=== PATIENT | male | born 2005 | race Caucasian/White ===

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

== ENCOUNTER 2025-04-20 15:56 | Emergency (ER) | payer MEDICAID, SELFPAY ==
[2025-04-20 15:56] VITALS: BP 142/78; PULSE 63; RESP 15; TEMP 36.6; O2SAT 100; BMI 34.0
[2025-04-20 17:56] VITALS: BP 138/75; PULSE 85; RESP 18; O2SAT 99
[2025-04-20 19:34] LABS: Absolute Lymphocyte Count 1.05 X10^3/uL (0.83-4.51); Absolute Neutrophil Count 7.9 X10^3/uL (2.0-7.7); Basophil# 0.06 X10^3/uL; Basophil% 0.6 % (0-1); Eosinophil# 0.02 X10^3/uL; Eosinophils% 0.2 % (0-5); Hematocrit 49.9 % (40-54); Hemoglobin 17.3 g/dL (13.0-16.5); Lymphocyte # 1.05 X10^3/ul (0.83-4.51); Lymphocyte % 10.8 % (19-41); Mean Corp Hgb Conc 34.7 g/dL (32-36); Mean Corpuscular Hgb 29.3 pg (27.0-32.0); Mean Corpuscular Volume 84.6 fL (80-94); Mean Platelet Vol. 9.7 fl (6.2-12.0); Monocyte# 0.58 X10^3/uL; NRBC Flagged by Analyzer 0 % (0-5); Neutrophil # 7.94 X10^3/uL (2.7-7.7); Platelet Count 286 K/mm3 (150-450); RBC Distribution Width CV 12.1 % (11.6-14.6); RBC Distribution Width SD 36.8 fl (35.1-43.9); White Blood Count 9.7 K/mm3 (4.4-11.0)
--- NOTE | 2025-04-20 19:48 | EX.ED.DYSGE1 ---
HPI History of Present Illness Chief Complaint: GI Bleed Narrative Narrative: Chief complaint and HPI: Hematemesis. 19-year-old male with no significant past medical history presents for evaluation of hematemesis. Patient states that he had just finished smoking a cigar when he developed nausea. States he had an episode of emesis that was streaked with bright red blood. States shortly afterwards had another episode that had more bright red blood. Last episode of emesis was 2 PM. States he does not smoke cigars regularly, states this is the second cigar he has ever had in his life. Denies tobacco abuse. Denies any illicit drug abuse or marijuana. Denies any daily NSAID use or alcohol use. States he is having some mild epigastric discomfort. Denies any history of PUD. Denies any fever, chills, shortness of breath, chest pain, constipation, diarrhea, dark or bloody stools, lightheadedness, syncope, presyncope. Review of systems: See HPI Medications: As listed on the chart Allergies: As listed on the chart PFSH: Per chart Vital signs: As listed on the chart. Reviewed. Physical exam: Gen: A&O x3, NAD Head: Normocephalic, atraumatic Eyes: No sclera icterus, conjunctiva clear ENT: Moist mucous membranes Neck: Trachea midline, No JVD CV: RRR, no murmurs, no peripheral edema Resp: Lungs CTA BL, no w/r/c GI: Abd soft, non-distended, mild tenderness to palpation in the epigastrium, no r/r/g Rectal: Normal external examination. No evidence of hemorrhoids or fissures. Normal tone and sensation. No masses, fluctuance, or tenderness. No pain out of proportion. Stool brown on gloved finger : No CVA tenderness Musc: Full ROM, no deformity Skin: Warm, dry Neuro: Alert, oriented, grossly intact, sensation intact Psych: Cooperative, appropriate mood and affect PFS PFSH Medical History no medical history Home Medications ?Medication ?Instructions ?Recorded ?Last Taken ?Type NK 04/20/25 Unknown History Allergy/AdvReac Type Severity Reaction Status Date / Time No Known Allergies Allergy Verified 04/20/25 15:59 Surgical History no surgical history Social History Smoking Status: Never smoker EXAM Physical Exam Const Vital Signs: 04/20/25 15:56 04/20/25 17:56 04/20/25 19:58 Temperature 97.9 F Temperature Source Temporal Pulse Rate 63 85 67 Respiratory Rate 15 18 14 Blood Pressure 142/78 H 138/75 H 149/74 H Blood Pressure Mean 99 96 99 Pulse Ox 100 99 98 Oxygen Delivery Method Room Air Room Air Room Air 04/20/25 20:53 Temperature Temperature Source Pulse Rate 70 Respiratory Rate 14 Blood Pressure 150/70 H Blood Pressure Mean 96 Pulse Ox 98 Oxygen Delivery Method Room Air MDM MDM MDM Narrative Medical decision making narrative: 19-year-old male with no significant past medical history presents for evaluation of hematemesis. Patient states that he had just finished smoking a cigar when he developed nausea. States he had an episode of emesis that was streaked with bright red blood. States shortly afterwards had another episode that had more bright red blood. Last episode of emesis was 2 PM. On presentation, patient is no acute distress. Vitals are stable other than mild hypertension. Differential diagnosis includes but is not limited to Rosanna-Perry tear, PUD, gastritis, anemia, GI bleed. Suspect less likely Boerhaave's. NS bolus, Zofran, Protonix ordered. Abdominal workup ordered. CBC without leukocytosis. Patient has mild hemoconcentration of 17.3. I do not have previous labs to compare to. Platelets unremarkable. CMP unremarkable without significant electrolyte abnormality or FAVIOLA. BUN is not elevated. No transaminitis. Lipase unremarkable. Lactic acid unremarkable. Chest x-ray was personally reviewed and interpreted by in, ED physician. No pneumonia, large effusion, pneumothorax, subcutaneous air. CT abdomen pelvis shows no acute intra-abdominal process. Stool occult is negative. On reevaluation, patient's nausea has improved. He has had no emesis or hematemesis here in the emergency department. His workup is unremarkable. I suspect his symptoms are likely secondary to Rosanna Perry tear. Patient and father were educated on this. Follow-up with primary care physician. Return precautions explained. Patient has been hypertensive here in the emergency department was told to follow-up with his PCP. He confirmed understanding of plan. Patient stable to discharge home. Impression: 1. Resolved hematemesis, suspect Rosanna-Perry tear 2. Hypertension Lab Data Labs: Laboratory Results - last 24 hr 04/20/25 04/20/25 18:00 19:16 WBC 9.7 RBC 5.90 Hgb 17.3 H Hct 49.9 MCV 84.6 MCH 29.3 MCHC 34.7 RDW Std Deviation 36.8 RDW Coeff of Seema 12.1 Plt Count 286 MPV 9.7 Immature Gran % (Auto) 0.400 Neut % (Auto) 82.0 H Lymph % (Auto) 10.8 L [place] % (Auto) 6.0 Eos % (Auto) 0.2 Baso % (Auto) 0.6 Absolute Neuts (auto) 7.9 H Absolute Lymphs (auto) 1.05 Nucleated RBC % 0 Sodium 141 Potassium 4.0 Chloride 105 Carbon Dioxide 21.6 Anion Gap 14 BUN 10 Creatinine 1.06 Estim Creat Clear Calc 139.47 Est GFR (MDRD) Non-Af 102 BUN/Creatinine Ratio 9.5 L Glucose 84 Lactic Acid 1.3 Calcium 9.8 Total Bilirubin 0.92 AST 29 ALT 31 Alkaline Phosphatase 63 Total Protein 7.1 Albumin 4.5 Globulin 2.6 Albumin/Globulin Ratio 1.7 Lipase 19 Radiography Diagnostic Testing: Clinical Impression(s) from Imaging Studies Abdomen/Pelvis CT 04/20/25 20:31 IMPRESSION: No acute intra-abdominal process. Reading Location: [facility] Chest X-Ray 04/20/25 20:35 IMPRESSION: Mild pulmonary vascular congestion. No focal consolidation. Reading Location: [facility] Discharge Plan Triage Chief Complaint: GI Bleed ED Provider: Erick Acevedo Dx/Rx/DC Orders Clinical Impression: Rosanna-Perry tear Instructions: Rosanna-Perry Tear Prescriptions: No Action NK Primary Care Provider: Ivory Zavaleta Referrals: Ivory Zavaleta MD [Primary Care Provider] - 3-5 Days Activity Restrictions/Additional Instructions: Follow-up with your primary care physician. Return back to the ED if symptoms change or worsen. Your blood pressure was high here in the emergency department, make sure you follow-up with your primary care physician for this. Print Language: Chinese Disposition Disposition: Home, Self Care
[2025-04-20 19:58] VITALS: BP 149/74; PULSE 67; RESP 14; O2SAT 98
[2025-04-20] MEDS: 0.9% Normal Saline (1000mL) 1,000 ML 999 ML IV (19:59)
[2025-04-20] MEDS: Pantoprazole Sodium 40 MG in 0.9% Normal Saline (100mL MB+) 100 ML 300 MG IV (20:02)
[2025-04-20 20:09] LABS: Lactic Acid 1.3 mmol/L (0.0-2.0)
[2025-04-20 20:10] LABS: Lipase 19 U/L (13-75)
[2025-04-20 20:13] LABS: ALB/GLOB Ratio 1.7 RATIO (0.9-2.4); AST(SGOT) 29 U/L (<=37); Alanine Aminotransfer ALT/SGPT 31 U/L (<=46); Albumin, Serum 4.5 g/dL (3.5-5.0); Alkaline Phosphatase 63 U/L (40-129); Anion Gap 14 (5-15); BUN 10 mg/dL (4-19); BUN/Creat Ratio 9.5 RATIO (10-20); Calcium,Total 9.8 mg/dL (7.6-11.0); Carbon Dioxide 21.6 mmol/L (21.0-32.0); Chloride 105 mmol/L (98-108); Creatinine, Serum 1.06 mg/dL (0.70-1.20); EST Glomerular Filtration Rate 102 (>60); Estimated Creatinine Clearance 139.47 ml/min (50-250); Globulin 2.6 g/dL (2.2-4.2); Glucose 84 mg/dL (70-99); Protein, Total 7.1 g/dL (5.9-8.4); Sodium Level 141 mmol/L (133-145); Total Bilirubin 0.92 mg/dL (0.00-1.30)
--- NOTE | 2025-04-20 20:31 | CT_ITS ---
PROCEDURE: ABDOMEN/PELVIS W IV CONT ONLY 04/20/2025 REASON FOR EXAM: HEMATEMESIS TECHNIQUE: ABDOMEN/PELVIS W IV CONT ONLY Coronal and Sagittal reconstruction series were provided. CONTRAST: 100 mL of Isovue 370 One or more dose reduction techniques were used (e.g., Automated exposure control, adjustment of the mA and/or kV according to patient size, use of iterative reconstruction technique. RADIATION DOSE SUMMARY: DLP: 1326 mGycm COMPARISON: None FINDINGS: Limited sections of the lung bases demonstrate no focal pulmonary mass or consolidations. The liver, spleen, pancreas, and both adrenal glands demonstrate no acute findings. The gallbladder is unremarkable. The stomach is unremarkable. The small bowel loops are not dilated. The appendix is normal. No colonic obstruction. There is no free air or significant free fluid. The kidneys are unremarkable. The urinary bladder is partially distended. The pelvic structures are intact. There is no solid pelvic mass. No significant lymphadenopathy. The aorta and IVC demonstrate no acute findings. Visualized osseous structures demonstrate no acute abnormality. Chronic cortical deformity of the right femoral neck. CT/Abdomen/Pelvis W IV Cont ONLY IMPRESSION: No acute intra-abdominal process. Reading Location: [id number]
--- NOTE | 2025-04-20 20:35 | RAD_ITS ---
PROCEDURE: CHEST 1 VIEW 04/20/2025 REASON FOR EXAM: HEMATEMSIS TECHNIQUE: Frontal view of the chest. COMPARISON: None FINDINGS: Mild pulmonary vascular congestion. No focal consolidation. No pleural effusion or pneumothorax. Cardiac silhouette is within normal limits. RAD/Chest 1 View IMPRESSION: Mild pulmonary vascular congestion. No focal consolidation. Reading Location: [id number]
[2025-04-20 20:53] VITALS: BP 150/70; PULSE 70; RESP 14; O2SAT 98
[2025-04-20 22:12] VITALS: BP 142/74; PULSE 68; RESP 16; TEMP 36.7; O2SAT 99
== END 2025-04-20 22:13 | disposition home or self-care (01) ==
PROVIDERS: Emergency Provider Surgery; PCP Pediatrics; Visit Provider Surgery
DX: K22.6 Gastro-esophageal laceration-hemorrhage syndrome (principal)
CPT/HCPCS: 71045; 74177; 80053; 82274; 83605; 83690; 85025; 96365; 96366; 99282; Q9967; A4216; J2405

== ENCOUNTER 2025-07-16 13:02 | Emergency (ER) | payer MEDICAID, SELFPAY ==
[2025-07-16 13:04] VITALS: BP 141/81; PULSE 71; RESP 18; TEMP 36.5; O2SAT 99; BMI 30.7
--- NOTE | 2025-07-16 13:59 | CT_ITS ---
PROCEDURE: BRAIN/HEAD WITHOUT CONTRAST 07/16/2025 REASON FOR EXAM: RIGHT SIDED HEADACHE, NUMBNESS LEFT SIDE TECHNIQUE: Procedure Code: CTBR Modality: CT Procedure: BRAIN/HEAD WITHOUT CONTRAST Coronal and Sagittal reconstruction series were provided. One or more dose reduction techniques were used (e.g., Automated exposure control, adjustment of the mA and/or kV according to patient size, use of iterative reconstruction technique. RADIATION DOSE SUMMARY: DLP: 812 mGycm COMPARISON: None available. FINDINGS: No acute hemorrhage. No acute infarct. No significant mass effect or brain herniation. The ventricular system and sulci/fissures are within normal limits of size and configuration for the patient's stated age. No extra-axial fluid collection. The basal cisterns are patent. The mastoid air cells are clear. Scattered paranasal mucosal thickening. The calvarium appears intact. CT/Brain/Head without Contrast IMPRESSION: No CT evidence of acute intracranial hemorrhage, transcortical infarct, or sign ificant mass effect. Reading Location: [facility]
--- OUTSIDE RECORDS SUMMARY | 2025-07-16 14:15 | XMS RPT_ITS | CCD ---
Author Organization [facility] Care Team Providers Care Side Seam Tender Name Role Phone Waqar HEBERT, Ivory Primary Care Provider Meeta Kamara PA-C Primary Care Provider Waqar HEBERT, Dr. Dodson Primary Care Provider Dr. Erick Acevedo DO Emergency Provider Cee Kamara PA-C Primary Care Provider Unavailable Haagen POCKET SETTER LOCKSTITCH.DAILY RELEASE AND DUPE PRINTER, Tamara Unavailable Suppan POCKET SETTER LOCKSTITCH.DAILY RELEASE AND DUPE PRINTER, Teresa A Unavailable Erick Acevedo Attending UnavailIvory Lund Primary Care Unavailable ANYA BOLIVAR Attending Unavailable CEE KAMARA Primary Care Unavailable JAMILAH MCGOWAN Attending Unavailable CEE KAMARA Primary Care Unavailable CEE KAMARA Primary Care Unavailable JAMILAH MCGOWAN Referring Unavailable CEE KAMARA Primary Care Unavailable JAMILAH MCGOWAN Referring Unavailable TIM ADDISON Attending Unavailable CEE KAMARA Primary Care Unavailable TIM ADDISON Referring Unavailable TIM ADDISON Attending Unavailable CEE KAMARA Primary Care Unavailable SAVANA ABARCA Attending Unavailable Allergies Allergy Classification Reported Allergen(s) Allergy Type Date of Onset Reaction(s) Facility (11 sources) Seasonal allergy; Translations: [SEASONAL ALLERGIES] Propensity to adverse reactions 4 Other: See Comments [facility] Medications Current Medications Medication Drug Class(es) Dates Sig (Normalized) Sig (Original) amoxicillin 875 mg / clavulanate 125 mg oral tablet (1 source) Penicillin-class Antibacterial Start: 05-03-2022 End: 05-13-2022 take 1 tablet by mouth twice daily amoxicillin-clavu lanic acid (AUGMENTIN) 875-125 mg per tablet Indications: Otorrhea, left Take 1 tablet by mouth twice daily for 10 days. 20 tablet 0 05/03/2022 05/13/2022 Active Comment on above: Take [address] [facility] twice daily for 10 days. [place] (Nk) (1 source) Start: 04-20-2025 [place] (Nk) Active April 20, 2025 12:00am ofloxacin 3 mg/ml otic solution (2 sources) Quinolone Antimicrobial Start: 06-23-2022 End: 06-30-2022 ofloxacin (FLOXIN) 0.3 % otic solution Indications: Acute otitis externa of both ears, unspecified type Use 10 Drops in both ears once daily for 7 days. 4 mL 0 06/23/2022 06/30/2022 Active Start: 05-03-2022 End: 05-10-2022 ofloxacin (FLOXIN) 0.3 % brenden c solution Indications: Otorrhea, left Use 5 Drops in both ears once daily for 7 days. 10 mL 1 05/03/2022 05/10/2022 Active Comment on above: Use 5 Drops in both ears once daily for 7 days. Use 10 Drops in both ears once daily for 7 days. Completed/Discontinued Medications Medication Drug Class(es) Dates Sig (Normalized) Sig (Original) acetic acid 20 mg/ml otic solution (8 sources) Start: 2 End: 5 acetic acid (VOSOL) 2 % otic solution Indications: Acute otitis externa of both ears, unspecified type Use 4 Drops in both ears three times daily. 6 mL 07/11/2022 06/23/2025 Discontinued Comment on above: Use 4 Drops in both ears three times daily. calcium chloride 0.0014 meq/ml / potassium chloride 0.004 meq/ml / sodium chloride 0.103 meq/ml / sodium lactate 0.028 meq/ml injectable solution (1 source) Start: 5 End: 5 take 30 mL intravenously every hour 30 mL/hr, INTRAVENOUS, CONTINUOUS, Starting on Dejah 06/16/25 at 1130, Until Dejah 06/16/25 at 1147, Preprocedure diphenhydrAMINE (1 source) Histamine-1 Receptor Antagonist Start: 5 End: 5 12.5-50 mg, INTRAVENOUS, DIRECTED, Starting on Dejah 06/16/25 at 1130, Until Dejah 06/16/25 at 1529, DOSING DIRECTED BY PHYSICIAN FOR PROCEDURAL SEDATION ONLY, Intraprocedure [id number] 0.3 ml EPINEPHrine 1 mg/ml auto-injector (10 sources) alpha-Adrenergic Agonist, beta-Adrenergic Agonist, Catecholamine Start: 1 End: 5 EPINEPHrine (EPIPEN) 0.3 mg/0.3 mL auto-injector Inject 0.3 mL intramuscularly as needed (for allergic reaction.Seek emergent medical care immediately after use.Disp:one 2-pack w/head animal trainer). 1 Each 1 12/27/2020 06/23/2025 Discontinued Comment on above: Inject 0.3 mL intram uscularly as needed (for allergic reaction.Seek emergent medical care immediately after use.Disp:one 2-pack w/head animal trainer). 1 ml fentaNYL 0.05 mg/ml injection (1 source) Opioid Agonist Start: 5 End: 5 25-100 mcg, INTRAVENOUS, DIRECTED, Starting on Dejah 06/16/25 at 1130, Until Dejah 06/16/25 at 1529, DOSING DIRECTED BY PHYSICIAN FOR PROCEDURAL SEDATION ONLY, Intraprocedure fexofenadine hydrochloride 180 mg oral tablet (11 sources) Histamine-1 Receptor Antagonist Start: 0 End: 5 take 1 tablet by mouth once daily fexofenadine ER (ESTEFANI) 180 mg tablet Take 1 tablet by mouth once daily. 30 tablet 05/13/2020 06/23/2025 Discontinued Start: 09-11-2019 End: 04-20-2025 take 3 tablets by mouth once daily Fexofenadine 60 MG tablet Discontinued 180 mg PO DAILY September 11, 2019 1:00am April 20, 2025 6:06pm Comment on above: Take 1 tablet by yas once daily. fluticasone propionate 0.05 mg/actuat metered dose nasal spray (1 source) Corticosteroid Start: 09-11-20 19 End: 04-20-20 Fluticasone Propionate 1 SPRAY spray,suspension Discontinued 1 NMA NASAL DAILY September 11, 2019 1:00am April 20, 2025 6:06pm 5 ml midazolam 1 mg/ml injection (1 source) Benzodiazepine Start: 06-16-20 End: 06-16-20 1-5 mg, INTRAVENOUS, DIRECTED, Starting on Dejah 06/16/25 at 1130, Until Dejah 06/16/25 at 1529, DOSING DIRECTED BY PHYSICIAN FOR PROCEDURAL SEDATION ONLY, Intraprocedure pantoprazole 40 mg delayed release oral tablet (8 sources) Proton Pump Inhibitor Start: 05-02-20 End: 09-21-20 take 1 tablet by mouth once daily pantoprazole DR (PROTONIX) 40 mg tablet Take 1 tablet by mouth once daily. 90 tablet 06/23/2025 06/23/2025 Discontinued sucralfate 1000 mg oral tablet (3 sources) Aluminum Complex Start: 05-10-20 End: 06-23-20 take 1 tablet by mouth three times daily sucralfate (CARAFATE) 1 gram tablet Take 1 tablet by mouth three times a day. 90 tablet 05/10/2025 06/23/2025 Discontinued Problems Active Problems Problem Classification Problem Date Documented Da te Episodic/Chronic Abdominal pain (10 sources) Abdominal pain; Translations: [Unspecified abdominal pain] Onset: 06-16-2025 04-20-2025 Episodic Administrative/social admission (1 source) Patient encounter status; Translations: [Persons encountering health services in other specified circumstances] Episodic Cardiac dysrhythmias (2 sources) Irregular heart beat; Translations: [Cardiac arrhythmia, unspecified] Onset: 05-02-2025 05-02-2025 Chronic Esophageal disorders (11 sources) Gastric reflux; Translations: [Gastro-esophageal reflux disease without esophagitis] Onset: 06-16-2025 05-02-2025 Chronic Esophageal disorders (1 source) Rosanna-Perry tear; Translations: [Gastro-esophageal laceration-hemorrha ge syndrome] 04-20-2025 Episodic Gastrointestinal hemorrhage (11 sources) Hematemesis; Translations: [Hematemesis] Onset: 04-25-2025 04-20-2025 Episodic Miscellaneous mental health disorders (2 sources) Anxiety about body function or health; Translations: [Other symptoms and signs involving emotional state] Onset: 05-02-2025 05-02-2025 Episodic Mood disorders (10 sources) Moderate major depression, single episode; Translations: [Major depressive disorder, single episode, moderate] Onset: 12-17-2019 12-17-2019 Chronic Nausea and vomiting (1 source) Vomiting Onset: 04-20-2025 Episodic Nonspecific chest pain (3 sources) Chest pain; Translations: [Chest pain, unspecified] Onset: 05-02-2025 05-02-2025 Episodic Other ear and sense organ disorders (1 source) Otorrhea of left ear; Translations: [Otorrhea, left ear] Episodic Other ear and sense organ disorders (2 sources) Acute otitis externa of bilateral ears; Translations: [Unspecified acute noninfective otitis externa, bilateral] Episodic Other gastrointestinal disorders (1 source) Heartburn; Translations: [Heartburn] 06-16-2025 Episodic Other gastrointestinal disorders (1 source) Heartburn; Translations: [Heartburn] Onset: 06-16-2025 Episodic Other lower respiratory disease (1 source) Dyspnea; Translations: [Shortness of breath] 04-20-2025 Episodic Other upper respiratory disease (10 sources) Allergic rhinitis due to house dust mite; Translations: [Other allergic rhinitis] Onset: 07-24-2017 07-24-2017 Chronic Other upper respiratory disease (10 sources) Allergic rhinitis due to pollen; Translations: [Allergic rhinitis due to pollen] Onset: 07-24-2017 07-24-2017 Chronic Residual codes; unclassified (1 source) Early satiety; Translations: [Early satiety] 05-02-2025 Episodic Residual codes; unclassified (1 source) Early satiety; Translations: [Early satiety] Onset: 05-02-2025 Episodic Past or Other Problems Problem Classification Problem Date Documented Da te Episodic/Chronic Mycoses (7 sources) Tinea capitis; Translations: [Tinea barbae and tinea capitis] Onset: 01-19-2015 Resolved: 01-29-2016 01-29-2016 Episodic Results Test Name Value Interpretation Reference Range Facility [facility] 06-23-2025 CNOV Office Visit (GENSWS ) MK CHIN ([id number]) 1 M Date Time Provider Department 06/23/25 1:30 PM SAVANA ABARCA During your visit today, we recorded the following information about you: Savaan Abarca APRN.CNP 06/23/2025 2:26 PM Signed FOLLOW UP VISIT - ENDOSCOPY Mk Chin 2005 [id number] REFERRING PHYSICIAN: No referring provider defined for this encounter. Mk Chin is a patient I am following for hematemesis x [address] Addison performed upper endoscopy on 06/16/25. The patient was found to have Impression: - Z-line regular, 42 cm from the incisors. Biopsied. - Normal stomach. Biopsied. - Normal ampulla and examined duodenum. Biopsied. Pathology demonstrated: FINAL DIAGNOSIS A. Small bowel, duodenum, biopsy: - Duodenal mucosa within normal limits. B. Stomach, antrum, biopsy: - Corpus mucosa within normal limits. - No morphologic evidence of Helicobacter. C. Esophagus, distal, biopsy: - Squamous mucosa with mild reflux-type changes. D. Esophagus, mid, biopsy: - Squamous mucosa within normal limits. - No increase in intraepithelial eosinophils identified. The patient notes no complaints since the procedure. -notes he is not currently taking protonix VITALS: There were no vitals taken for this visit. General: patient is alert, cooperative, pleasant and in no acute distress On examination, the abdomen is mildyl tender at the epigastric region. Assessment ASSESSMENT/PLAN: 1. Gastroesophageal reflux disease without esophagitis - ICD9: 530.81, ICD10: K21.9 - Discussed lifestyle modifications including losing weight, limiting caffeine, no meals three hours before sleep, and head of bed elevation - Continue treatment with Protonix 40mg for 2 more months - Limit caffeine The operative findings and pathology report were reviewed with the patient, and the patient has had the opportunity to ask questions and have questions answered. If the patient notes any problems or changes in bowel function, the patient should contact me immediately. Otherwise I recommend follow up endoscopy as symptoms dictate. HM updated. Discussed treatment plan and patient voices understanding. Patient's questions answered appropriately. Medications and potential side effects were discussed and patient voices understanding. Return to the office as scheduled or as needed for worsening/no improvement. Savana Abarca APRN.CNP Allergies As of Date: 06/23/2025 Noted Allergy Reaction SEASONAL ALLERGIES 05/03/2014 14 - Other: See Comments Comments: nasal congestion, headaches, eyes red, itchy Cockroaches, Dust mites,trees, grasses, weeds, ragweed Date Reviewed: 06/23/2025 Reviewed by: Savana Abarca APRN.DAILY RELEASE AND DUPE PRINTER - Fully Assessed Reason for Visit: Follow Up [171] Cmt: Egd follow up Primary Visit Diagnosis:Gastroesophageal reflux disease without esophagitis [K21.9] Order(s):pantoprazole DR (PROTONIX) 40 mg tabletTake 1 tablet by mouth once daily.Disp: 90 tabletRfl: 0 Prescriptions as of 06/23/2025 - pantoprazole DR (PROTONIX) 40 mg tablet Take 1 tablet by mouth once daily. Problem List As Of Date 06/23/2025 Noted Resolved Tinea capitis [B35.0] 01/19/2015 01/29/2016 Allergic rhinitis due to dust mite [J30.89] 07/24/2017 Chronic seasonal allergic rhinitis due to polle*07/24/2017 Current moderate episode of major depressive di*12/17/2019 Gastric reflux [K21.9] 06/16/2025 Hematemesis with nausea [K92.0] 06/16/2025 Upper abdominal pain [R10.10] 06/16/2025 Prescriptions ordered this encounter Disp Refills Start End PANTOPRAZOLE 40 MG TABLET,DELAYED RE* 90 t* 0 06/23/2025 06/23/2025 Route: PO Sig: Take 1 tablet by mouth once daily. PANTOPRAZOLE 40 MG TABLET,DELAYED RE* 90 t* 0 06/23/2025 09/21/2025 Route: PO Sig: Take 1 tablet by mouth once daily. Medications Discontinued During This Encounter Prescriptions - pantoprazole DR (PROTONIX) 40 mg tablet (Discontinued) Reported on 06/23/2025 - sucralfate (CARAFATE) 1 gram tablet (Discontinued) Reported on 06/23/2025 - pantoprazole DR (PROTONIX) 40 mg tablet (Discontinued) Take 1 tablet by mouth once daily. - acetic acid (VOSOL) 2 % otic solution (Discontinued) Reported on 04/20/2025 - EPINEPHrine (EPIPEN) 0.3 mg/0.3 mL auto-injector (Discontinued) Reported on 05/10/2025 - fexofenadine ER (ESTEFANI) 180 mg tablet (Discontinued) Reported on 04/20/2025 Encounter Status:Closed by SAVANA ABARCA on 06/23/25 [facility] [id number] 06-16-2025 [id number] HNO ID: [id number] Author: COURT CAICEDO RN Service: ? Author Type: Registered Nurse Type: [id number] Filed: 06/16/2025 12:01 Note Text: The patient received a copy of Colonoscopy discharge instructions that contain information for how to contact the physician who performed the procedure and when to seek medical care. [facility] EGD Study observation Narrat nona 06-16-2025 [facility] Gastrointestinal Endoscopy Patient Name: Mk Chin Procedure Date: 06/16/2025 11:03 AM Date of : 2005 Admit Type: Outpatient Age: 19 Gender: Male Note Status: Finalized Procedure: Upper GI endoscopy Indications: Hematemesis Providers: Tim Addison MD Patient Profile: This is a 19 year old male. Refer to note in patient chart for documentation of history and physical. Referring Physician: Tim Addison MD (Referring MD) Medicines: Fentanyl 100 micrograms IV, Midazolam 7 mg IV, Diphenhydramine 50 mg IV Complications: No immediate complications. Estimated blood loss: Minimal. Requesting Provider: Procedure: Pre-Anesthesia Assessment: - Prior to the procedure, a History and Physical was performed, and patient medications and allergies were reviewed. The patient's tolerance of previous anesthesia was also reviewed. The risks and benefits of the procedure and the sedation options and risks were discussed with the patient. All questions were answered, and informed consent was obtained. Prior Anticoagulants: The patient has taken no anticoagulant or antiplatelet agents. ASA Grade Assessment: II - A patient with mild systemic disease. After reviewing the risks and benefits, the patient was deemed in satisfactory condition to undergo the procedure. After obtaining informed consent, the endoscope was passed under direct vision. Throughout the procedure, the patient's blood pressure, pulse, and oxygen saturations were monitored continuously. The Endoscope was introduced through the mouth, and advanced to the second part of duodenum. The upper GI endoscopy was accomplished without difficulty. The patient tolerated the procedure well. Moderate Sedation: The administration of moderate sedation was initiated at 11:23. Moderate (conscious) sedation was personally administered by the endoscopist. The following parameters were monitored: oxygen saturation, heart rate, blood pressure, respiratory rate, EKG, adequacy of pulmonary ventilation, and response to care. Total physician intraservice time was 11 minutes. Findings: The Z-line was regular and was found 42 cm from the incisors. Biopsies were taken with a cold forceps for histology. The entire examined stomach was normal. Biopsies were taken with a cold forceps for Helicobacter pylori testing. The ampulla and examined duodenum were normal. Biopsies for histology were taken with a cold forceps for evaluation of celiac disease. Impression: - Z-line regular, 42 cm from the incisors. Biopsied. - Normal stomach. Biopsied. - Normal ampulla and examined duodenum. Biopsied. Recommendation: - Patient has a contact number available for emergencies. The signs and symptoms of potential delayed complications were discussed with the patient. Return to normal activities tomorrow. Written discharge instructions were provided to the patient. - Resume previous diet. - Continue present medications. - Await pathology results. - Repeat upper endoscopy PRN for surveillance. - Return to nurse practitioner at appointment to be scheduled. Procedure Code(s): --- Professional --- 87833, Esophagogastroduodenoscopy, flexible, transoral; with biopsy, single or multiple G0500, Moderate sedation services provided by the same physician or other qualified health pet caretaker performing a gastrointestinal endoscopic service that sedation supports, requiring the presence of an independent trained observer to assist in the monitoring of the patient's level of consciousness and physiological status; initial 15 minutes of intra-service time; patient age 5 years or older (additional time may (more content not included)... PROVATION [facility] Radiology Study observation (narrative) [facility] HISTORY PHYSICALon 5 HISTORY PHYSICAL HNO ID: [id number] Author: TIM ADDISON MD Service: General Surgery Author Type: Physician Type: H&P Filed: 06/16/2025 11:00 Note Text: HISTORY AND PHYSICAL Mk Chin 2005 REFERRING PHYSICIAN: Jamilah Mcgowan, APR* CHIEF COMPLAINT: Consult (Hamtemesis, nausea abd pain) HPI: Mk Chin is a 19-year-old male presenting with hematemesis and persistent abdominal pain. Mk reports an episode of hematemesis, which lasted approximately 15 minutes, followed by the onset of abdominal pain. He was evaluated in the ED, where he received a single dose of medication via IV for nausea, but no oral medications were prescribed. Since the ED visit, he has not experienced any further episodes of emesis and denies melena. However, he continues to experience abdominal pain and discomfort. He is currently taking Protonix, which was prescribed by his primary care physician one week ago. The patient is being seen by me today at the request of Dr. Mcgowan for my opinion and advice regarding Hematemesis with nausea Upper abdominal pain Gastric reflux. PAST MEDICAL HISTORY PAST MEDICAL HISTORY Diagnosis Date Color blindness partial Gastric reflux Routine or ritual circumcision PAST SURGICAL HISTORY PAST SURGICAL HISTORY Procedure Laterality Date CIRCUMCISION W/CLAMP/OTH DEV W/BLOCK PAST SURGICAL HISTORY OF 07/2020 surgery leg wound CURRENT MEDICATIONS Current Outpatient Medications Medication Sig pantoprazole DR (PROTONIX) 40 mg tablet Take 1 tablet by mouth once daily. sucralfate (CARAFATE) 1 gram tablet Take 1 tablet by mouth three times a day. acetic acid (VOSOL) 2 % otic solution Use 4 Drops in both ears three times daily. (Patient not taking: Reported on 04/20/2025) EPINEPHrine (EPIPEN) 0.3 mg/0.3 mL auto-injector Inject 0.3 mL intramuscularly as needed (for allergic reaction.Seek emergent medical care immediately after use.Disp:one 2-pack w/head animal trainer). (Patient not taking: Reported on 05/10/2025) fexofenadine ER (ESTEFANI) 180 mg tablet Take 1 tablet by mouth once daily. (Patient not taking: Reported on 04/20/2025) No current facility-administered medications for this visit. ALLERGIES: Seasonal Allergies PERSONAL HISTORY: SOCIAL HISTORY Social History Tobacco Use Smoking status: Never Smokeless tobacco: Never Vaping Use Vaping status: Never Used Substance Use Topics Alcohol use: Not Currently Drug use: Never FAMILY HISTORY: FAMILY HISTORY FAMILY HISTORY Problem Relation Age of Onset Hypertension Maternal Grandmother other (diabetes) Maternal Grandmother other (skin cancer) Maternal Grandfather Diabetes Paternal Grandfather Hypertension Paternal Grandfather Prostate Cancer Paternal Grandfather REVIEW OF SYMPTOMS: The review of systems data was entered by the nurse and reviewed by me There are no exam notes on file for this visit. PHYSICAL EXAMINATION: General: The patient is 19 year old male, well nourished, well hydrated in no acute distress. The patient is oriented to time, place, and person. VITALS: Blood pressure 126/78, pulse 65, temperature 36.7 ?C (98 ?F), height 180.3 cm (5' 11), weight 108 kg (238 lb 3.2 oz), SpO2 99%. Body mass index is 33.22 kg/m?. HEENT: Normal cephalic, ataumatic, pupils are equally round, sclera are anicteric, mucous membranes are moist, oropharynx is clear. Neck has no masses, asymmetry or lymphadenopathy. Thyroid is unremarkable. Respiratory: Clear to auscultation and percussion. Normal respiratory excursion and pattern. Cardiac: Examination is regular rate and rhythm. Abdominal exam: Soft, nontender, with no palpable masses. No hepatosplenomegaly. No palpable hernias. Rectal exam: exam deferred Extremities: no clubbing, cyanosis or edema. No adenopathy. Other: LABORATORY VALUES: As Noted RADIOLOGIC STUDIES: As Noted Assessment IMPRESSION: Hematemesis with nausea Upper abdominal pain Gastric reflux PLAN: 1. Hematemesis with nausea (K92.0) Upper abdominal pain (R10.10) Likely Rosanna-Perry tear in the distal esophagus due to violent retching. Patient continues to experience pain and discomfort; no medications were prescribed in the emergency department, but received one dose of IV medication for nausea. Currently on Protonix, started a week ago. - Prescribed Carafate to be dissolved in a tablespoon of water and taken TID to coat the esophageal tear and promote healing. - Continue Protonix as prescribed. - Scheduled esophagogastroduodenoscopy (EGD) to visualize and assess the extent of the tear; Renato, the operating room scheduler, will contact the patient to arrange the procedure after the . - Advised patient to consume small meals and avoid coarse foods such as nuts, seeds, and popcorn. - Educated patient that healing typically takes 4-6 weeks. 2. Gastric reflux (K21.9) Currently managed with Protonix. Continue Protonix as prescribed. Diagnoses: (K92.0) Hematemesi (more content not included)... [facility] Pathology biopsy report Mayank (Tiss)on 06-16-2025 AP DISCLAIMER [facility] Comment on above: Order Comment: Trinh keane Type: TISSUE SPECIMEN Ordering Facility: [facility] Address: [address] [place] [address] Result Comment: Haydee domínguez Developed Test (LDT) Disclaimer: Performance characteristics of immunohistochemical, immunofluorescent, and chromogenic in-situ hybridization tests have been determined by the performing laboratory within the [facility] Department of Pathology and Laboratory Medicine ([facility], [facility], [facility], [facility], [facility], [facility], or [facility]) in a manner consistent with CLIA requirements. One or more of these tests may not have been cleared or approved by the FDA. The [facility] Department of Pathology and Laboratory Medicine is regulated under CLIA as qualified to perform high-complexity testing. These tests are used for clinical purposes. These should not be regarded as investigational or for research. Positive and negative controls stain appropriately. Performed By: #### 6 [id number] #### [facility] CLIA [id number] [address] [place] [address] [place] CASE REPORT [facility] Comment on above: Order Comment: Trinh keane Type: TISSUE SPECIMEN Ordering Facility: [facility] Address: [address] [place] [address] Result Comment: Surg ica Pathology Report Case: [id number] Authorizing Provider: Tim Addison MD Collected: 06/16/2025 11:32 AM Ordering Location: Ambulatory Surgery Received: 06/16/2025 12:05 PM Pathologist: Sam Soria MD Specimens: A) - Small Bowel, Duodenum, Biopsy B) - Stomach, Antrum, Biopsy, Antral for H/H C) - Esophagus, Distal, Biopsy D) - Esophagus, Mid, Biopsy Performed By: #### 6 6121-5 #### [facility] CLIA [id number] [address] [place] [address] FINAL DIAGNOSIS Normal [facility] Comment on above: Order Comment: Speci men Type: TISSUE SPECIMEN Ordering Facility: [facility] Address: [address] [place] [address] Result Comment: A. S mall bowel, duodenum, biopsy: - Duodenal mucosa within normal limits. B. Stomach, antrum, biopsy: - Corpus mucosa within normal limits. - No morphologic evidence of Helicobacter. C. Esophagus, distal, biopsy: - Squamous mucosa with mild reflux-type changes. D. Esophagus, mid, biopsy: - Squamous mucosa within normal limits. - No increase in intraepithelial eosinophils identified. at 1639 EDT Performed By: #### 6 6121-5 #### [facility] CLIA [id number] [address] [place] [address] [place] FINAL PERFORMING LAB Normal [facility] Comment on above: Order Comment: Speci men Type: TISSUE SPECIMEN Ordering Facility: [facility] Address: [address] [place] [address] Result Comment: Diag nostic interpretation performed at: [facility], [address] [place] [address] CLIA# [id number] Receptionist: Maverick Moyer MD Performed By: #### 6 6121-5 #### [facility] CLIA [id number] [address] [place] [address] OF [place] GROSS DESCRIPTION Normal [facility] Comment on above: Order Comment: Speci men Type: TISSUE SPECIMEN Ordering Facility: [facility] Address: [address] [place] [address] Result Comment: A. S mall Bowel, Duodenum, Biopsy Received in formalin is one piece of mooney-brown, soft tissue measuring 0.7 x 0.3 x 0.2 cm. Totally submitted in one cassette. B. Stomach, Antrum, Biopsy Received in formalin is one piece of mooney-red, soft tissue measuring 0.5 x 0.3 x 0.1 cm. Totally submitted in one cassette. C. Esophagus, Distal, Biopsy Received in formalin are two pieces of mooney, soft tissue aggregating to 1.4 x 0.3 x 0.1 cm. Totally submitted in one cassette. D. Esophagus, Mid, Biopsy Received in formalin is one piece of mooney, soft tissue measuring 0.6 x 0.5 x 0.1 cm. Totally submitted in one cassette. DL June 16, 2025 8:01 PM Gross examination performed at [facility], [address] [place] [address]. [place] [address] Performed By: #### 6 6121-5 #### [facility] CLIA [id number] [address] [place] [address] [place] [address] [place] Upper GI endoscopyon --2 025 Upper GI endoscopy [facility] Gastrointestinal Endoscopy Patient Name: Mk Chin Procedure Date: 06/16/2025 11:03 AM Date of : 2005 Admit Type: Outpatient Age: 19 Gender: Male Note Status: Finalized Procedure: Upper GI endoscopy Indications: Hematemesis Providers: Tim Addison MD Patient Profile: This is a 19 year old male. Refer to note in patient chart for documentation of history and physical. Referring Physician: Tim Addison MD (Referring MD) Medicines: Fentanyl 100 micrograms IV, Midazolam 7 mg IV, Diphenhydramine 50 mg IV Complications: No immediate complications. Estimated blood loss: Minimal. Requesting Provider: Procedure: Pre-Anesthesia Assessment: - Prior to the procedure, a History and Physical was performed, and patient medications and allergies were reviewed. The patient's tolerance of previous anesthesia was also reviewed. The risks and benefits of the procedure and the sedation options and risks were discussed with the patient. All questions were answered, and informed consent was obtained. Prior Anticoagulants: The patient has taken no anticoagulant or antiplatelet agents. ASA Grade Assessment: II - A patient with mild systemic disease. After reviewing the risks and benefits, the patient was deemed in satisfactory condition to undergo the procedure. After obtaining informed consent, the endoscope was passed under direct vision. Throughout the procedure, the patient's blood pressure, pulse, and oxygen saturations were monitored continuously. The Endoscope was introduced through the mouth, and advanced to the second part of duodenum. The upper GI endoscopy was accomplished without difficulty. The patient tolerated the procedure well. Moderate Sedation: The administration of moderate sedation was initiated at 11:23. Moderate (conscious) sedation was personally administered by the endoscopist. The following parameters were monitored: oxygen saturation, heart rate, blood pressure, respiratory rate, EKG, adequacy of pulmonary ventilation, and response to care. Total physician intraservice time was 11 minutes. Findings: The Z-line was regular and was found 42 cm from the incisors. Biopsies were taken with a cold forceps for histology. The entire examined stomach was normal. Biopsies were taken with a cold forceps for Helicobacter pylori testing. The ampulla and examined duodenum were normal. Biopsies for histology were taken with a cold forceps for evaluation of celiac disease. Impression: - Z-line regular, 42 cm from the incisors. Biopsied. - Normal stomach. Biopsied. - Normal ampulla and examined duodenum. Biopsied. Recommendation: - Patient has a contact number available for emergencies. The signs and symptoms of potential delayed complications were discussed with the patient. Return to normal activities tomorrow. Written discharge instructions were provided to the patient. - Resume previous diet. - Continue present medications. - Await pathology results. - Repeat upper endoscopy PRN for surveillance. - Return to nurse practitioner at appointment to be scheduled. Procedure Code(s): --- Professional --- 25132, Esophagogastroduodenoscopy, flexible, transoral; with biopsy, single or multiple G0500, Moderate sedation services provided by the same physician or other qualified health pet caretaker performing a gastrointestinal endoscopic service that sedation supports, requiring the presence of an independent trained observer to assist in the monitoring of the patient's level of consciousness and physiological status; initial 15 minutes of intra-service time; patient age 5 years or older (additional time may be reported with 14378, as appropriate) Diagnosis Code(s): --- Professional --- K92.0, Hematemesis CPT copyright 2020 [employer]. All rights reserved. The codes documented in this report are preliminary and upon career education teacher review may be revised to meet current compliance requirements. Attending Participation: I personally performed the entire procedure. Scope In: 11:31:48 AM Scope Out: 11:34:48 AM MD Tim Calvo MD 06/16/2025 11:40:25 AM This report has been signed electronically by Tim Addison MD Number of Addenda: 0 Note Initiated On: 06/16/2025 11:03 AM Estimated Blood Loss: Estimated blood loss was minimal. Normal [facility] CNOVon 05-10-2025 CNOV Office Visit (GENSWS ) MK CHIN ([id number]) 1 M Date Time Provider Department 05/10/25 11:30 AM TIM ADDISON GENSWS During your visit today, we recorded the following information about you: Temperature Pulse Blood pressure Weight 98 degrees 65/minute 126/78 108 kg Height 1.803 m Tim Addison MD 05/10/2025 11:53 AM Signed HISTORY AND PHYSICAL Mk Chin 2005 REFERRING PHYSICIAN: Jamilah Mcgowan, APR* CHIEF COMPLAINT: Consult (Hamtemesis, nausea abd pain) HPI: Mk Chin is a 19-year-old male presenting with hematemesis and persistent abdominal pain. Mk reports an episode of hematemesis, which lasted approximately 15 minutes, followed by the onset of abdominal pain. He was evaluated in the ED, where he received a single dose of medication via IV for nausea, but no oral medications were prescribed. Since the ED visit, he has not experienced any further episodes of emesis and denies melena. However, he continues to experience abdominal pain and discomfort. He is currently taking Protonix, which was prescribed by his primary care physician one week ago. The patient is being seen by me today at the request of Dr. Mcgowan for my opinion and advice regarding Hematemesis with nausea Upper abdominal pain Gastric reflux. PAST MEDICAL HISTORY Diagnosis Date Color blindness partial Gastric reflux Routine or ritual circumcision PAST SURGICAL HISTORY Procedure Laterality Date CIRCUMCISION W/CLAMP/OTH DEV W/BLOCK PAST SURGICAL HISTORY OF 07/2020 surgery leg wound Current Outpatient Medications Medication Sig pantoprazole DR (PROTONIX) 40 mg tablet Take 1 tablet by mouth once daily. sucralfate (CARAFATE) 1 gram tablet Take 1 tablet by mouth three times a day. acetic acid (VOSOL) 2 % otic solution Use 4 Drops in both ears three times daily. (Patient not taking: Reported on 04/20/2025) EPINEPHrine (EPIPEN) 0.3 mg/0.3 mL auto-injector Inject 0.3 mL intramuscularly as needed (for allergic reaction.Seek emergent medical care immediately after use.Disp:one 2-pack w/head animal trainer). (Patient not taking: Reported on 05/10/2025) fexofenadine ER (ESTEFANI) 180 mg tablet Take 1 tablet by mouth once daily. (Patient not taking: Reported on 04/20/2025) No current facility-administered medications for this visit. ALLERGIES: Seasonal Allergies PERSONAL HISTORY: Social History Tobacco Use Smoking status: Never Smokeless tobacco: Never Vaping Use Vaping status: Never Used Substance Use Topics Alcohol use: Not Currently Drug use: Never FAMILY HISTORY: FAMILY HISTORY Problem Relation Age of Onset Hypertension Maternal Grandmother other (diabetes) Maternal Grandmother other (skin cancer) Maternal Grandfather Diabetes Paternal Grandfather Hypertension Paternal Grandfather Prostate Cancer Paternal Grandfather REVIEW OF SYMPTOMS: The review of systems data was entered by the nurse and reviewed by me There are no exam notes on file for this visit. PHYSICAL EXAMINATION: General: The patient is 19 year old male, well nourished, well hydrated in no acute distress. The patient is oriented to time, place, and person. VITALS: Blood pressure 126/78, pulse 65, temperature 36.7 ?C (98 ?F), height 180.3 cm (5' 11), weight 108 kg (238 lb 3.2 oz), SpO2 99%. Body mass index is 33.22 kg/m?. HEENT: Normal cephalic, ataumatic, pupils are equally round, sclera are anicteric, mucous membranes are moist, oropharynx is clear. Neck has no masses, asymmetry or lymphadenopathy. Thyroid is unremarkable. Respiratory: Clear to auscultation and percussion. Normal respiratory excursion and pattern. Cardiac: Examination is regular rate and rhythm. Abdominal exam: Soft, nontender, with no palpable masses. No hepatosplenomegaly. No palpable hernias. Rectal exam: exam deferred Extremities: no clubbing, cyanosis or edema. No adenopathy. Other: LABORATORY VALUES: As Noted RADIOLOGIC STUDIES: As Noted Assessment IMPRESSION: Hematemesis with nausea Upper abdominal pain Gastric reflux PLAN: 1. Hematemesis with nausea (K92.0) Upper abdominal pain (R10.10) Likely Rosanna-Perry tear in the distal esophagus due to violent retching. Patient continues to experience pain and discomfort; no medications were prescribed in the emergency department, but received one dose of IV medication for nausea. Currently on Protonix, started a week ago. - Prescribed Carafate to be dissolved in a tablespoon of water and taken TID to coat the esophageal tear and promote healing. - Continue Protonix as prescribed. - Scheduled esophagogastroduodenoscopy (EGD) to visualize and assess the extent of the tear; Renato, the operating room scheduler, will contact the patient to arrange the procedure after the . - Advised patient to consume small meals and avoid coarse foods such as nuts, seeds, and popcorn. - Ed (more content not included)... Normal [facility] CNPNon 05-05-2025 [facility] Telephone ([employer]) MK CHIN ([id number]) 1 M Date Time Provider Department 05/05/25 TIM ADDISON During your visit today, we recorded the following information about you: Ines Yin LPN 05/05/2025 1:33 PM Signed Patient has appointment 05/10/2025 in General Surgery. Seen at [facility] in March. Faxed request for records/Push. MAK Randle Kimberly, LPN 05/05/2025 1:33 PM Signed Emailed Imaging Library of request. MAK Randle Kimberly, LPN 05/06/2025 9:52 AM Signed Images have been pushed. Ines Yin LPN Allergies As of Date: 05/05/2025 Noted Allergy Reaction SEASONAL ALLERGIES 05/03/2014 14 - Other: See Comments Comments: nasal congestion, headaches, eyes red, itchy Cockroaches, Dust mites,trees, grasses, weeds, ragweed Date Reviewed: 05/02/2025 Reviewed by: Jamilah Mcgowan, POCKET SETTER LOCKSTITCH.DAILY RELEASE AND DUPE PRINTER - Fully Assessed Reason for Visit: Request Outside Medical Records [[id number]] Prescriptions as of 05/06/2025 - pantoprazole DR (PROTONIX) 40 mg tablet Take 1 tablet by mouth once daily. - acetic acid (VOSOL) 2 % otic solution Use 4 Drops in both ears three times daily. - EPINEPHrine (EPIPEN) 0.3 mg/0.3 mL auto-injector Inject 0.3 mL intramuscularly as needed (for allergic reaction.Seek emergent medical care immediately after use.Disp:one 2-pack w/head animal trainer). - fexofenadine ER (ESTEFANI) 180 mg tablet Take 1 tablet by mouth once daily. Problem List As Of Date 05/05/2025 Noted Resolved Tinea capitis [B35.0] 01/19/2015 01/29/2016 Allergic rhinitis due to dust mite [J30.89] 07/24/2017 Chronic seasonal allergic rhinitis due to polle*07/24/2017 Current moderate episode of major depressive di*12/17/2019 Encounter Status:Closed by INES YIN on 05/06/25 [facility] CNOVon 05-02-2025 CNOV Office Visit (INTMWS ) MK CHIN ([id number]) 1 M Date Time Provider Department 05/02/25 3:20 PM JAMILAH MCGOWAN INTMWS During your visit today, we recorded the following information about you: Temperature Pulse Blood pressure Weight 99 degrees 76/minute 130/80 108 kg Juan M, Naz Meeta, BIJAN.DAILY RELEASE AND DUPE PRINTER 05/02/2025 4:11 PM Signed CC: Patient presents with: ER F/U: [facility] GI bleed, acid reflux, epigastric pain HPI Recording using ambient [employer] software for draft documentation of the visit was discussed with the patient/authorized billing representative; all questions welcomed and answered. Patient/authorized billing representative agreed to proceed Mk Chin is a 19-year-old male presenting for follow-up after an ER visit for hematemesis. Mk was seen in the ER on 04/20 for hematemesis following cigar smoking. He experienced nausea and two episodes of emesis streaked with bright red blood. He denies frequent smoking, noting this was only the second cigar he has ever smoked. ER workup included a CT abdomen/pelvis, which was negative for acute intra-abdominal process, and a chest X-ray, which showed mild pulmonary vascular congestion but no focal pulmonary mass or consolidations. Labs were essentially unremarkable. Stool for occult blood was negative. The ER physician suspected a Rosanna-Perry tear and instructed Mk to follow up with his PCP. No medications were prescribed, and he was discharged home. Since the ER visit, Mk reports no further episodes of emesis but has experienced weird abdominal pains and panic attacks. The abdominal pain is diffuse, with primary localization to the epigastric region and secondary localization to the lower abdomen and corresponding areas of the back. He also reports reflux, particularly postprandial, but denies dysphagia. He notes a significant decrease in appetite, feeling full all the time, but denies unintentional weight loss. He has chest pain that correlates with the reflux. He has not taken any medications for reflux and was not prescribed any in the ER. He denies any history of stomach problems, reflux, or significant medical history. He denies any family history of stomach or esophageal problems. Mk denies fever, diarrhea, constipation, cough, or recent illness. He also denies tobacco use, vaping, alcohol consumption, or caffeine intake. He reports occasional use of ibuprofen or Aleve, approximately twice a year. He denies any specific dietary triggers for his reflux and describes his diet as unhealthy prior to the onset of symptoms. He reports feeling like his heart is racing. He denies any history of chest pain, palpitations, or irregular heartbeats. Review of Systems Respiratory: Negative for cough, shortness of breath and wheezing. Cardiovascular: Negative for leg swelling. Neurological: Negative for dizziness, syncope, weakness and light-headedness. 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 pantoprazole DR (PROTONIX) 40 mg tablet Take 1 tablet by mouth once daily. acetic acid (VOSOL) 2 % otic solution Use 4 Drops in both ears three times daily. (Patient not taking: Reported on 04/20/2025) fexofenadine ER (ESTEFANI) 180 mg tablet Take 1 tablet by mouth once daily. (Patient not taking: Reported on 04/20/2025) FAMILY HISTORY Problem Relation Age of Onset Hypertension Maternal Grandmother other (diabetes) Maternal Grandmother other (skin cancer) Maternal Grandfather Diabetes Paternal Grandfather Hypertension Paternal Grandfather Prostate Cancer Paternal Grandfather Social History Tobacco Use Smoking status: Never Smokeless tobacco: Never Vaping Use Vaping status: Never Used Substance Use Topics Alcohol use: Not Currently Drug use: Never BP 130/80 (BP Site: Left Arm, BP Position: Sitting, BP Cuff Size: Regular Adult) Pulse 76 Temp 37.2 ?C (99 ?F) Wt 108 kg (238 lb 1.6 oz) SpO2 99% Physical Exam Vitals reviewed. Constitutional: General: He is not in acute distress. Appearance: Normal appearance. He is not ill-appearing or toxic-appearing. Cardiovascular: Rate and Rhythm: Normal rate. Rhythm irregular. Pulses: Normal pulses. Heart sounds: Normal heart sounds. No murmur heard. Comments: Heart rate accelerating with inhalation and decelerating with exhalation Pulmonary: Effort: Pulmonary effort is normal. Breath sounds: Normal breath sounds. No wheezing, rhonchi or rales. Abdominal: General: [place] (more content not included)... Normal [facility] ECG COMPLETEon 05-02-2025 ECG COMPLETE Ventricular Rate : 6 7 BPM Atrial Rate : 67 BPM P-R Interval : 124 ms QRS Duration : 90 ms Q-T Interval : 368 ms QTC Calculation(Bazett) : 388 ms Calculated P Tyler : 28 degrees Calculated R Tyler : -1 degrees Calculated T Tyler : 25 degrees SINUS RHYTHM WITH MARKED SINUS ARRHYTHMIA MINIMAL VOLTAGE CRITERIA FOR LVH, MAY BE NORMAL VARIANT ( R in aVL ) BORDERLINE ECG Confirmed by MD GORDON QARAB ([id number]) on 05/04/2025 5:36:33 PM NAME : MK CHIN PID : [id number] : 2005 Gender : Male Race : ORD : [id number] Procedure Date : May 02 2025 15:49:28 Edit Date : May 04 2025 17:36:35 Diagnosis: SINUS RHYTHM WITH MARKED SINUS ARRHYTHMIA MINIMAL VOLTAGE CRITERIA FOR LVH, MAY BE NORMAL VARIANT ( R in aVL ) BORDERLINE ECG Confirmed by MD GORDON QARAB ([id number]) on 05/04/2025 5:36:33 PM Test Reason : R07.9 Chest pain, unspecified type Location : 185 : WO Overread By : MD GORDON QARAB Edited By : MD GORDON QARAB Referred By : , Acquired by : Meggan jurado [facility] H pylori Ag Stl Ql IAon 07-0 H. pylori Ag IA Ql (Stl) H.PYLORI EIA RESULT: Negative for Helicobacter pylori antigen by EIA Normal [facility] Comment on above: Performed By: #### 6 6121-5 #### [facility] CLIA [id number] [address] [place] [address] [place] Abdomen/Pelvis W IV Cont ONL Yon 04-20-2025 Abdomen/Pelvis W IV Cont ONLY [facility] Imaging Services [address] [place] [id number] Abdomen/Pelvis W IV Cont ONLY MR#: [id number] Acct: [id number] Name: MK CHIN Rep #: [id number] : 2005 M 19 From: Allan Mitchell PCP: Dr. Ivory Zavaleta MD Status: REG ER Study: Abdomen/Pelvis W IV Cont ONLY Date of Exam: Exam# [id number] Ordering Dr: Erick Acevedo DO PROCEDURE: ABDOMEN/PELVIS W IV CONT ONLY 04/20/2025 REASON FOR EXAM: HEMATEMESIS TECHNIQUE: ABDOMEN/PELVIS W IV CONT ONLY Coronal and Sagittal reconstruction series were provided. CONTRAST: 100 mL of Isovue 370 One or more dose reduction techniques were used (e.g., Automated exposure control, adjustment of the mA and/or kV according to patient size, use of iterative reconstruction technique. RADIATION DOSE SUMMARY: DLP: 1326 mGycm COMPARISON: None FINDINGS: Limited sections of the lung bases demonstrate no focal pulmonary mass or consolidations. The liver, spleen, pancreas, and both adrenal glands demonstrate no acute findings. The gallbladder is unremarkable. The stomach is unremarkable. The small bowel loops are not dilated. The appendix is normal. No colonic obstruction. There is no free air or significant free fluid. The kidneys are unremarkable. The urinary bladder is partially distended. The pelvic structures are intact. There is no solid pelvic mass. No significant lymphadenopathy. The aorta and IVC demonstrate no acute findings. Visualized osseous structures demonstrate no acute abnormality. Chronic cortical deformity of the right femoral neck. CT/Abdomen/Pelvis W IV Cont ONLY IMPRESSION: No acute intra-abdominal process. Reading Location: [facility] CC: Dr. Erick Acevedo DO; Dr. Ivory Zavaleta MD Steel Chipper: Signed Normal [facility] Absolute lymphocyte countOrd ered By: Erick Acevedo on 04-20-2025 Lymphocytes Auto (Unsp spec) [#/Vol] 1.05 10*3/uL 0.83-4.51 [facility] Absolute neutrophil countOrd ered By: Erick Acevedo on 04-20-2025 Neutrophils (Bld) [#/Vol] 7.9 10*3/uL High 2.0-7.7 [facility] Anion gap in Serum or Plasma Ordered By: Erick Acevedo on 04-20-2025 Anion gap [Moles/Vol] 14 mmol/L 5-15 [facility] Automated blood erythrocyte countOrdered By: Erick Acevedo on 04-20-2025 RBC (Bld) [#/Vol] 5.90 10*6/uL Normal 4.6-6.2 [facility] Comment on above: Performed By: #### L 501.2450, L100.0100, L500.4050 #### [facility] [address] [place], [place], [address] Automated blood hematocrit ( percentage)Ordered By: Erick Acevedo on 04-20-2025 Hematocrit (Bld) [Volume fraction] 49.9 % Normal 40-54 [facility] Comment on above: Performed By: #### L 501.2450, L100.0100, L500.4050 #### [facility] [address] [place], [place], [id number] Automated lymphocyte count a s percentage of total leukocytesOrdered By: Erick Acevedo on 04-20-2025 Lymphocytes/100 WBC Auto (Unsp spec) 10.8 % Low 19-41 [facility] BUN/creatinine ratioOrdered By: Erick Acevedo on 04-20-2025 Urea nitrogen/Creatinine [Mass ratio] 9.5 mg/mg Low 10-20 [facility] Basophil percentageOrdered B y: Erick Acevedo on 04-20-2025 Basophils/100 WBC (Bld) 0.6 % Normal 0-1 [facility] Comment on above: Performed By: #### L 501.2450, L100.0100, L500.4050 #### [facility] [address] [place], [place], [address] Bilirubin, totalOrdered By: Erick Acevedo on 04-20-2025 Bilirubin [Mass/Vol] 0.92 mg/dL Normal 0.00-1.30 [facility] Comment on above: Performed By: #### L 501.2450, L100.0100, L500.4050 #### [facility] [address] [place], [address] CBC W/Diff, Automatedon 06-2 -2024 Absolute Lymph 1.05 X10 3/uL Normal 0.83-4.51 [facility] Comment on above: Performed By: #### L 501.2450, L100.0100, L500.4050 #### [facility] [address] [place], [address] Absolute Neut 7.9 X10 3/uL High 2.0-7.7 [facility] Comment on above: Performed By: #### L 501.2450, L100.0100, L500.4050 #### [facility] [address] [place], [address] IG% 0.400 Normal 0.0-0.9 [facility] Comment on above: Result Comment: IG% - Immature Granulocytes (promyelocytes, myelocytes and metamyelocytes) > 1% indicates that a LEFT SHIFT is Present. Performed By: #### L 501.2450, L100.0100, L500.4050 #### [facility] [address] [place], [address] Lymphocytes/100 WBC (Bld) 10.8 % Low 19-41 [facility] Comment on above: Performed By: #### L 501.2450, L100.0100, L500.4050 #### [facility] [address] [place], [address] Nucleated RBC (Bld) [#/Vol] 0 10*3/uL Normal 0-5 [facility] Comment on above: Performed By: #### L 501.2450, L100.0100, L500.4050 #### [facility] [address] [place], [address] RDW SD 36.8 fl Normal 35.1-43.9 [facility] Comment on above: Performed By: #### L 501.2450, L100.0100, L500.4050 #### [facility] [place], [address] [facility] 04-20-2025 CN Office Visit (UCWSTR ) MK CHIN ([id number]) 1 M Date Time Provider Department 04/20/25 3:30 PM ANYA BOLIVAR [facility] During your visit today, we recorded the following information about you: Temperature Pulse Respiration Blood pressure 98 degrees 59/minute 16/minute 126/82 Weight 110.8 kg Allergies As of Date: 04/20/2025 Noted Allergy Reaction SEASONAL ALLERGIES 05/03/2014 14 - Other: See Comments Comments: nasal congestion, headaches, eyes red, itchy Cockroaches, Dust mites,trees, grasses, weeds, ragweed Date Reviewed: 04/20/2025 Reviewed by: Valentine Caicedo LPN - Fully Assessed Reason for Visit: Vomiting [120] Cmt: Blood tinged vomiting x 2 hours Visit Diagnoses:Hematemesis, unspecified whether nausea present [K92.0] Abdominal pain, unspecified abdominal location [R10.9] Shortness of breath [R06.02] Prescriptions as of 04/20/2025 - acetic acid (VOSOL) 2 % otic solution Use 4 Drops in both ears three times daily. - EPINEPHrine (EPIPEN) 0.3 mg/0.3 mL auto-injector Inject 0.3 mL intramuscularly as needed (for allergic reaction.Seek emergent medical care immediately after use.Disp:one 2-pack w/head animal trainer). - fexofenadine ER (ESTEFANI) 180 mg tablet Take 1 tablet by mouth once daily. Problem List As Of Date 04/20/2025 Noted Resolved Tinea capitis [B35.0] 01/19/2015 01/29/2016 Allergic rhinitis due to dust mite [J30.89] 07/24/2017 Chronic seasonal allergic rhinitis due to polle*07/24/2017 Current moderate episode of major depressive di*12/17/2019 Encounter Status:Closed by ANYA BOLIVAR on 04/20/25 Normal [facility] Carbon dioxide, total [Moles /volume] in Central venous bloodOrdered By: Erick Acevedo on 04-20-2025 CO2 [Moles/Vol] 21.6 mmol/L Normal 21.0-32.0 [facility] Comment on above: Performed By: #### L 501.2450, L100.0100, L500.4050 #### [facility] [address] [place], [address] Chest 1 Viewon 04-20-2025 Chest 1 View [facility] [address] [place], [place] [address] Chest 1 View MR#: [id number] Acct: [id number] Name: MK CHIN Rep #: [id number] : 2005 M 19 From: Allan Mitchell PCP: Dr. Ivory Zavaleta MD Status: REG ER Study: Chest 1 View Date of Exam: 04/20/25 Exam# [id number] Ordering Dr: Erick Acevedo DO PROCEDURE: CHEST 1 VIEW 04/20/2025 REASON FOR EXAM: HEMATEMSIS TECHNIQUE: Frontal view of the chest. COMPARISON: None FINDINGS: Mild pulmonary vascular congestion. No focal consolidation. No pleural effusion or pneumothorax. Cardiac silhouette is within normal limits. RAD/Chest 1 View IMPRESSION: Mild pulmonary vascular congestion. No focal consolidation. Reading Location: [facility] CC: Dr. Erick Acevedo DO; Dr. Ivory Zavaleta MD Steel Chipper: Signed Normal [facility] Chloride assayOrdered By: Christopher Acevedo on 04-20-2025 Chloride [Moles/Vol] 105 mmol/L Normal 98-108 [facility] Comment on above: Performed By: #### L 501.2450, L100.0100, L500.4050 #### [facility] [address] [place], [address] Comprehensive Metabolic Prof ilcarmine 04-20-2025 ALK PHOS 63 U/L Normal 40-129 [facility] Comment on above: Performed By: #### L 501.2450, L100.0100, L500.4050 #### [facility] [address] [place], [address] BUN/CRE 9.5 RATIO Low 10-20 [facility] Comment on above: Performed By: #### L 501.2450, L100.0100, L500.4050 #### [facility] [address] [place], [address] ECRCL 139.47 ml/min Normal 50-250 [facility] Comment on above: Performed By: #### L 501.2450, L100.0100, L500.4050 #### [facility] [address] [place], [address] GAP 14 Normal 5-15 [facility] Comment on above: Performed By: #### L 501.2450, L100.0100, L500.4050 #### [facility] [address] [place], [address] Potassium [Moles/Vol] 4.0 mmol/L Normal 3.3-5.1 [facility] Comment on above: Result Comment: Hemo lysis present, Results??could be affected. ?? Performed By: #### L 501.2450, L100.0100, L500.4050 #### [facility] [address] [place], [address] T PROT 7.1 g/dL Normal 5.9-8.4 [facility] Comment on above: Performed By: #### L 501.2450, L100.0100, L500.4050 #### [facility] [address] [place], [address] Comprehensive Metabolic Prof ilOrdered By: Erick Acevedo on 04-20-2025 AST [Catalytic activity/Vol] 29 U/L Normal <=37 [facility] Comment on above: Hemolysis present, R esults could be affected. Result Comment: Hemo lysis present, Results??could be affected. ?? Performed By: #### L 501.2450, L100.0100, L500.4050 #### [facility] [address] [place], [place], [address] Emergency Department Summary on 04-20-2025 Emergency Department Summary [facility] Medical Records Department [address] [facility] [place] [address] Emergency Department Summary 04/20/25 MR#: [id number] Acct: [id number] Name: MK CHIN Rep #: [id number] : 2005 19 From: Erick Acevedo DO PCP: Dr. Ivory Zavaleta MD Status:REG ER Location: ED HPI History of Present Illness Chief Complaint: GI Bleed Narrative Narrative: Chief complaint and HPI: Hematemesis. 19-year-old male with no significant past medical history presents for evaluation of hematemesis. Patient states that he had just finished smoking a cigar when he developed nausea. States he had an episode of emesis that was streaked with bright red blood. States shortly afterwards had another episode that had more bright red blood. Last episode of emesis was 2 PM. States he does not smoke cigars regularly, states this is the second cigar he has ever had in his life. Denies tobacco abuse. Denies any illicit drug abuse or marijuana. Denies any daily NSAID use or alcohol use. States he is having some mild epigastric discomfort. Denies any history of PUD. Denies any fever, chills, shortness of breath, chest pain, constipation, diarrhea, dark or bloody stools, lightheadedness, syncope, presyncope. Review of systems: See HPI Medications: As listed on the chart Allergies: As listed on the chart PFSH: Per chart Vital signs: As listed on the chart. Reviewed. Physical exam: Gen: A O x3, NAD Head: Normocephalic, atraumatic Eyes: No sclera icterus, conjunctiva clear ENT: Moist mucous membranes Neck: Trachea midline, No JVD CV: RRR, no murmurs, no peripheral edema Resp: Lungs CTA BL, no w/r/c GI: Abd soft, non-distended, mild tenderness to palpation in the epigastrium, no r/r/g Rectal: Normal external examination. No evidence of hemorrhoids or fissures. Normal tone and sensation. No masses, fluctuance, or tenderness. No pain out of proportion. Stool brown on gloved finger : No CVA tenderness Musc: Full ROM, no deformity Skin: Warm, dry Neuro: Alert, oriented, grossly intact, sensation intact Psych: Cooperative, appropriate mood and affect PFSH PFSH Medical History no medical history Home Medications ???Medication ???Instructions ???Recorded ???Last Taken ???Type NK 04/20/25 Unknown History Allergy/AdvReac Type Severity Reaction Status Date / Time No Known Allergies Allergy Verified 04/20/25 15:59 Surgical History no surgical history Social History Smoking Status: Never smoker EXAM Physical Exam Const Vital Signs: 04/20/25 15:56 04/20/25 17:56 04/20/25 19:58 Temperature 97.9 F Temperature Source Temporal Pulse Rate 63 85 67 Respiratory Rate 15 18 14 Blood Pressure 142/78 H 138/75 H 149/74 H Blood Pressure Mean 99 96 99 Pulse Ox 100 99 98 Oxygen Delivery Method Room Air Room Air Room Air 04/20/25 20:53 Temperature Temperature Source Pulse Rate 70 Respiratory Rate 14 Blood Pressure 150/70 H Blood Pressure Mean 96 Pulse Ox 98 Oxygen Delivery Method Room Air MDM MDM MDM Narrative Medical decision making narrative: 19-year-old male with no significant past medical history presents for evaluation of hematemesis. Patient states that he had just finished smoking a cigar when he developed nausea. States he had an episode of emesis that was streaked with bright red blood. States shortly afterwards had another episode that had more bright red blood. Last episode of emesis was 2 PM. On presentation, patient is no acute distress. Vitals are stable other than mild hypertension. Differential diagnosis includes but is not limited to Rosanna-Perry tear, PUD, gastritis, anemia, GI bleed. Suspect less likely Boerhaave's. NS bolus, Zofran, Protonix ordered. Abdominal workup ordered. CBC without leukocytosis. Patient has mild hemoconcentration of 17.3. I do not have previous labs to compare to. Platelets unremarkable. CMP unremarkable without significant electrolyte abnormality or FAVIOLA. BUN is not elevated. No transaminitis. Lipase unremarkable. Lactic acid unremarkable. Chest x- ray was personally reviewed and interpreted by ms, ED physician. No pneumonia, large effusion, pneumothorax, subcutaneous air. CT abdomen pelvis shows no acute intra-abdominal process. Stool occult is negative. On reevaluation, patient's nausea has improved. He has had no emesis or hematemesis here in the emergency department. His workup is unremarkable. I suspect his symptoms are likely secondary to Rosanna Perry tear. Patient and father were educated on this. Follow-up with primary care physician. Return precautions explained. Patient has been hypertensive here in the emergency department was told to follow-up with his PCP. He confirmed understanding of plan. Patient stable to discharge home. (more content not included)... Normal [facility] Eosinophil percentageOrdered By: Erick Acevedo on 04-20-2025 Eosinophils/100 WBC (Bld) 0.2 % Normal 0-5 [facility] Comment on above: Performed By: #### L 501.2450, L100.0100, L500.4050 #### [facility] [address] [place], [address] Erythrocyte distribution wid th ratioOrdered By: Erick Acevedo on 04-20-2025 Erythrocyte distribution width (RBC) [Ratio] 12.1 % Normal 11.6-14.6 [facility] Comment on above: Performed By: #### L 501.2450, L100.0100, L500.4050 #### [facility] [address] [place], [address] Erythrocyte distribution wid th standard deviationOrdered By: Erick Musa on 04-20-2025 Erythrocyte distribution width (RBC) [Ratio] 36.8 fl 35.1-43.9 [facility] Glomerular filtration rate ( GFR) estimation/1.73 sq m using serum, plasma, or whole bOrdered By: Erick Acevedo on 04-20-2025 GFR/1.73 sq M.predicted among non-blacks MDRD (S/P/Bld) [Vol rate/Area] 102 mL/min/{1.73_m2} Normal >60 [facility] Comment on above: mL/min/1.73m2 CKD-EP I Creatinine Equation (2020) Result Comment: mL/m in/1.73m2 CKD-EPI Creatinine Equation (2020) Performed By: #### L 501.2450, L100.0100, L500.4050 #### [facility] [address] [place], [address] Hemoglobin measurementOrdere d By: Erick Acevedo on 04-20-2025 Hemoglobin (Bld) [Mass/Vol] 17.3 g/dL High 13.0-16.5 [facility] Comment on above: Performed By: #### L 501.2450, L100.0100, L500.4050 #### [facility] [address] [place], [address] Immature granulocytes/100 WB C Auto (Bld)Ordered By: Erick Acevedo on 04-20-2025 Immature granulocytes/100 WBC (Bld) 0.400 % 0.0-0.9 [facility] Comment on above: IG% - Immature Granu locytes (promyelocytes, myelocytes and metamyelocytes) > 1% indicates that a LEFT SHIFT is Present. Lactic Acidon 04-20-2025 Lactate [Moles/Vol] 1.3 mmol/L Normal 0.0-2.0 [facility] Comment on above: Order Comment: Y Performed By: #### L 503.6005, M100.7900 #### [facility] [address] [place], [address] Lactic acid measurementOrder ed By: Erick Acevedo on 04-20-2025 Lactate [Moles/Vol] 1.3 mmol/L 0.0-2.0 [facility] Lipase measurementOrdered By : Erickabraham Acevedo on 04-20-2025 Lipase [Catalytic activity/Vol] 19 U/L Normal 13-75 [facility] Comment on above: Please note:LIPASE r evised reference range effective 23. New Lipase methodology. Expected to produce lower values than the previous assay method. NEW Reference Range: 13 - 75 U/L Result Comment: Afsaneh soria note: LIPASE revised reference range effective 23. New Lipase methodology. Expected to produce lower values than the previous assay method. NEW Reference Range: 13 - 75 U/L Performed By: #### L 501.2450, L100.0100, L500.4050 #### [facility] [address] [place], [address] MCV (mean corpuscular volume ) determinationOrdered By: [facility] Hospital[facility] on 04-20-2025 MCV (RBC) [Entitic vol] 84.6 fL Normal 80-94 [facility] Comment on above: Performed By: #### L 501.2450, L100.0100, L500.4050 #### [facility] [address] [place], [address] Mean corpuscular hemoglobin (MCH) determinationOrdered By: Erick Acevedo on 04-20-2025 MCH (RBC) [Entitic mass] 29.3 pg Normal 27.0-32.0 [facility] Comment on above: Performed By: #### L 501.2450, L100.0100, L500.4050 #### [facility] [address] [place], [address] Mean corpuscular hemoglobin concentration (MCHC) determinationOrdered By: Erick Acevedo on 04-20-2025 MCHC (RBC) [Mass/Vol] 34.7 g/dL Normal 32-36 [facility] Comment on above: Performed By: #### L 501.2450, L100.0100, L500.4050 #### [facility] [address] [place], [address] Mean platelet volume determi nationOrdered By: Erick Acevedo on 04-20-2025 Platelet mean volume (Bld) [Entitic vol] 9.7 fL Normal 6.2-12.0 [facility] Comment on above: Performed By: #### L 501.2450, L100.0100, L500.4050 #### [facility] [address] [place], [address] Monocyte percentageOrdered B y: Erick Acevedo on 04-20-2025 Monocytes/100 WBC (Bld) 6.0 % Normal 0-10 [facility] Comment on above: Performed By: #### L 501.2450, L100.0100, L500.4050 #### [facility] [address] [place], [address] Neutrophil percentageOrdered By: Erick Acevedo on 04-20-2025 Neutrophils/100 WBC (Bld) 82.0 % High 47-70 [facility] Comment on above: Performed By: #### L 501.2450, L100.0100, L500.4050 #### [facility] [address] [place], [address] Nucleated red blood cell per centageOrdered By: Erick Acevedo on 04-20-2025 Nucleated RBC/100 WBC (Bld) [Ratio] 0 % 0-5 [facility] Platelet countOrdered By: Christopher Acevedo on 04-20-2025 Platelets (Bld) [#/Vol] 286 10*3/uL Normal 150-450 [facility] Comment on above: Performed By: #### L 501.2450, L100.0100, L500.4050 #### [facility] [address] [place], [address] Potassium measurement (mass/ volume)Ordered By: Erick Acevedo on 04-20-2025 Potassium (Unsp spec) [Mass/Vol] 4.0 mmol/L 3.3-5.1 [facility] Comment on above: Hemolysis present, R esults could be affected. Serum creatinine measurement (mass/volume)Ordered By: Erick Acevedo on 04-20-2025 Creatinine [Mass/Vol] 1.06 mg/dL Normal 0.70-1.20 [facility] Comment on above: Performed By: #### L 501.2450, L100.0100, L500.4050 #### [facility] [address] [place], [address] Serum globulin measurementOr dered By: Erick Acevedo on 04-20-2025 Globulin (S) [Mass/Vol] 2.6 g/dL Normal 2.2-4.2 [facility] Comment on above: Performed By: #### L 501.2450, L100.0100, L500.4050 #### [facility] [address] [place], [address] Serum glucose measurement (m ass/volume)Ordered By: Erick Acevedo on 04-20-2025 Glucose [Mass/Vol] 84 mg/dL Normal 70-99 [facility] Comment on above: Performed By: #### L 501.2450, L100.0100, L500.4050 #### [facility] [address] [place], [address] Serum or plasma alanine carrillo otransferase (ALT) measurementOrdered By: Erick Acevedo on 04-20-2025 ALT [Catalytic activity/Vol] 31 U/L Normal <=46 [facility] Comment on above: Performed By: #### L 501.2450, L100.0100, L500.4050 #### [facility] [address] [place], [address] Serum or plasma albumin portia urement (mass/volume)Ordered By: Erick Musa on 04-20-2025 Albumin [Mass/Vol] 4.5 g/dL Normal 3.5-5.0 [facility] Comment on above: Performed By: #### L 501.2450, L100.0100, L500.4050 #### [facility] [address] [place], [address] Serum or plasma albumin/glob ulin mass ratioOrdered By: Erickabraham Acevedo on 04-20-2025 Albumin/Globulin [Mass ratio] 1.7 {ratio} Normal 0.9-2.4 [facility] Comment on above: Performed By: #### L 501.2450, L100.0100, L500.4050 #### [facility] [address] [place], [address] Serum or plasma alkaline roni sphatase measurementOrdered By: Erick Acevedo on 04-20-2025 ALP [Catalytic activity/Vol] 63 U/L 40-129 [facility] Serum or plasma calcium portia urement (mass/volume)Ordered By: Erick Musa on 04-20-2025 Calcium [Mass/Vol] 9.8 mg/dL Normal 7.6-11.0 [facility] Comment on above: Performed By: #### L 501.2450, L100.0100, L500.4050 #### [facility] [address] [place], [address] Serum or plasma urea nitroge n measurement (mass/volume)Ordered By: Erick Acevedo on 04-20-2025 Urea nitrogen [Mass/Vol] 10 mg/dL Normal 4-19 [facility] Comment on above: Performed By: #### L 501.2450, L100.0100, L500.4050 #### [facility] [address] [place], [address] Sodium levelOrdered By: Gallo Acevedo on 04-20-2025 Sodium [Moles/Vol] 141 mmol/L Normal 133-145 [facility] Comment on above: Performed By: #### L 501.2450, L100.0100, L500.4050 #### [facility] [address] [place], [address] Stool Occult Blood iFOBon STOB Negative Normal [facility] Comment on above: Performed By: #### L 503.6005, M100.7900 #### [facility] [address] [place], [address] Stool gastrointestinal hemog lobin detection by immunologic methodOrdered By: Erick Acevedo on 04-20-2025 Lower GI hemoglobin IA Ql (Stl) [facility] Total proteinOrdered By: Janes Acevedo on 04-20-2025 Protein [Mass/Vol] 7.1 g/dL 5.9-8.4 [facility] White blood cell (WBC) count Ordered By: Erick Acevedo on 04-20-2025 WBC (Bld) [#/Vol] 9.7 10*3/uL Normal 4.4-11.0 [facility] Comment on above: Performed By: #### L 501.2450, L100.0100, L500.4050 #### [facility] [address] [place], [address] Vital Signs Date Time Vital Sign Value Performing Clinician Liliana dennison 06-16-2025 12:12-0400 Diastolic blood pressure 73 mm[Hg] Tim Addison MD Work Phone: [facility] 06-16-2025 12:12-0400 Heart rate 58 /min Tim Addison MD Work Phone: [facility] 06-16-2025 12:12-0400 Respiratory rate 14 /min Tim Addison MD Work Phone: [facility] 06-16-2025 12:12-0400 SaO2% (BldA) [Mass fraction] 97 % Tim Addison MD Work Phone: [facility] 06-16-2025 12:12-0400 Systolic blood pressure 123 mm[Hg] Tim Addison MD Work Phone: [facility] 06-16-2025 11:00-0400 Body temperature 97.59 [degF] Tim Addison MD Work Phone: [facility] 05-10-2025 11:30-0400 Body height 180.3 cm Tim Addison MD Work Phone: [facility] 05-10-2025 11:30-0400 Body mass index (BMI) [Ratio] 33.22 kg/m2 Tim Addison MD Work Phone: [facility] 05-10-2025 11:30-0400 Body temperature 98.01 [degF] Tim Addison MD Work Phone: [facility] 05-10-2025 11:30-0400 Body weight 108.05 kg Tim Addison MD Work Phone: [facility] 05-10-2025 11:30-0400 Diastolic blood pressure 78 mm[Hg] Tim Addison MD Work Phone: [facility] 05-10-2025 11:30-0400 Heart rate 65 /min Tim Addison MD Work Phone: [facility] 05-10-2025 11:30-0400 SaO2% (BldA) [Mass fraction] 99 % Tim Addison MD Work Phone: [facility] 05-10-2025 11:30-0400 Systolic blood pressure 126 mm[Hg] Tim Addison MD Work Phone: [facility] 05-02-2025 15:21-0400 Body temperature 99 [degF] [facility] [employer] [employer]OCK[employer] Work Phone: [facility] 05-02-2025 15:21-0400 Body weight 108 kg [facility] Juan M POCKET SETTER LOCKSTITCH.DAILY [employer] AND [employer] Work Phone: [facility] 05-02-2025 15:21-0400 Diastolic blood pressure 80 mm[Hg] [facility] LOCKSTITCH.DAILY [employer] Work Phone: [facility] 05-02-2025 15:21-0400 Heart rate 76 /min [facility]ET [employer]TER LOCKSTITCH.[employer]ILY [employer] Work Phone: [facility] 05-02-2025 15:21-0400 SaO2% (BldA) [Mass fraction] 99 % [facility] POCKET SETTER LOCKSTITCH.[employer]ILY [employer] Work Phone: [facility] 05-02-2025 15:21-0400 Systolic blood pressure 130 mm[Hg] [facility] [employer]TER [employer]OCK[employer]ITCH.[employer] Work Phone: [facility] 04-20-2025 22:12-0400 Body temperature 98.1 [degF] Dr. Ivory Zavaleta MD Work Phone: [facility] 04-20-2025 22:12-0400 Diastolic blood pressure 74 mm[Hg] Dr. Ivory Zavaleta MD Work Phone: [facility] 04-20-2025 22:12-0400 Heart rate 68 /min Dr. Ivory Zavaleta MD Work Phone: [facility] 04-20-2025 22:12-0400 Respiratory rate 16 /min Dr. Ivory Zavaleta MD Work Phone: [facility] 04-20-2025 22:12-0400 SaO2% (BldA) [Mass fraction] 99 % Dr. Ivory Zavaleta MD Work Phone: [phone] [place] [address] 04-20-2025 22:12-0400 Systolic blood pressure 142 mm[Hg] Dr. Ivory Zavaleta MD Work Phone: [facility] 04-20-2025 15:56-0400 Body height 180.[address] Ivory Zavaleta MD Work Phone: [facility] 04-20-2025 15:56-0400 Body mass index (BMI) [Ratio] 34 kg/m2 Dr. Ivory Zavaleta MD Work Phone: [facility] 04-20-2025 15:56-0400 Body weight 110.[address] Ivory Zavaleta MD Work Phone: [facility] 04-20-2025 15:33-0400 Body temperature 98.01 [degF] Anya Bolivar POCKET SETTER LOCKSTITCH[employer] Work Phone: [facility] 04-20-2025 15:33-0400 Body weight 110.8 kg Anya Bolivar POCKET SETTER LOCKSTITCH.DAILY RELEASE AND DUPE PRINTER Work Phone: [facility] 04-20-2025 15:33-0400 Diastolic blood pressure 82 mm[Hg] Anya Bolivar POCKET SETTER LOCKSTITCH.DAILY RELEASE AND DUPE PRINTER Work Phone: [facility] 04-20-2025 15:33-0400 Heart rate 59 /min Anya Bolivar POCKET SETTER LOCKSTITCH.DAILY RELEASE AND DUPE PRINTER Work Phone: [facility] 04-20-2025 15:33-0400 Respiratory rate 16 /min Anya Bolivar POCKET SETTER LOCKSTITCH.DAILY RELEASE AND DUPE PRINTER Work Phone: [facility] 04-20-2025 15:33-0400 SaO2% (BldA) [Mass fraction] 99 % Anya Bolivar POCKET SETTER LOCKSTITCH.DAILY RELEASE AND DUPE PRINTER Work Phone: [facility] 04-20-2025 15:33-0400 Systolic blood pressure 126 mm[Hg] Anya Bolivar POCKET SETTER LOCKSTITCH.DAILY RELEASE AND DUPE PRINTER Work Phone: [facility] 07-11-2022 14:23-0400 Body temperature 98.6 [degF] NEIL Kamara PA-C Work Phone: [facility] 07-11-2022 14:23-0400 Body weight 119.3 kg NA Kamara PA-C Work Phone: [facility] 07-11-2022 14:23-0400 Diastolic blood pressure 72 mm[Hg] NA Kamara PA-C Work Phone: [facility] 07-11-2022 14:23-0400 Heart rate 63 /min NA Kamara PA-C Work Phone: [facility] 07-11-2022 14:23-0400 Respiratory rate 16 /min NA Kamara PA-C Work Phone: [facility] 07-11-2022 14:23-0400 SaO2% (BldA) [Mass fraction] 98 % NA Kamara PA-C Work Phone: [facility] 07-11-2022 14:23-0400 Systolic blood pressure 116 mm[Hg] NA Kamara PA-C Work Phone: [facility] 06-23-2022 12:44-0400 Body temperature 98.01 [degF] Eduar Kenneth POCKET SETTER LOCKSTITCH.DAILY RELEASE AND DUPE PRINTER Work Phone: [facility] 06-23-2022 12:44-0400 Body weight 119.66 kg Eduar Kenneth POCKET SETTER LOCKSTITCH.DAILY RELEASE AND DUPE PRINTER Work Phone: [facility] 06-23-2022 12:44-0400 Diastolic blood pressure 78 mm[Hg] Eduar Kenneth POCKET SETTER LOCKSTITCH.DAILY RELEASE AND DUPE PRINTER Work Phone: [facility] 06-23-2022 12:44-0400 Heart rate 88 /min Eduar Kenneth POCKET SETTER LOCKSTITCH.DAILY RELEASE AND DUPE PRINTER Work Phone: [facility] 06-23-2022 12:44-0400 Respiratory rate 16 /min Eduar Kenneth POCKET SETTER LOCKSTITCH.DAILY RELEASE AND DUPE PRINTER Work Phone: [facility] 06-23-2022 12:44-0400 SaO2% (BldA) [Mass fraction] 98 % Eduar Kenneth POCKET SETTER LOCKSTITCH.DAILY RELEASE AND DUPE PRINTER Work Phone: [facility] 06-23-2022 12:44-0400 Systolic blood pressure 118 mm[Hg] Eduar Kenneth POCKET SETTER LOCKSTITCH.DAILY RELEASE AND DUPE PRINTER Work Phone: [facility] 05-03-2022 09:42-0400 Body temperature 96.91 [degF] Lona Denbow PA-C Work Phone: [facility] 05-03-2022 09:42-0400 Body weight 119.02 kg Lona Denbow PA-C Work Phone: [facility] 05-03-2022 09:42-0400 Diastolic blood pressure 70 mm[Hg] Lona Denbow PA-C Work Phone: [facility] 05-03-2022 09:42-0400 Heart rate 58 /min Lona Denbow PA-C Work Phone: [facility] 05-03-2022 09:42-0400 Respiratory rate 21 /min Lona Denbow PA-C Work Phone: [facility] 05-03-2022 09:42-0400 SaO2% (BldA) [Mass fraction] 99 % Lona Denbow PA-C Work Phone: [facility] 05-03-2022 09:42-0400 Systolic blood pressure 118 mm[Hg] Lona Denbow PA-C Work Phone: [facility] Encounters Encounter Date Encounter Type Care Provider Facility Start: 06-23-2025 End: 06-23-2025 Patient encounter procedure Savana Abarca POCKET SETTER LOCKSTITCH.DAILY RELEASE AND DUPE PRINTER Work Phone: General Surgery Comment on above: Gastroesophageal ref lux disease without esophagitis (Primary Dx) Start: 06-23-2025 End: 06-23-2025 ambulatory CEE KAMARA Facility:[facility] Start: 06-16-2025 ambulatory CEE KAMARA Fac ility:[facility] Start: 06-16-2025 End: 06-16-2025 Subsequent hospital visit by physician Tim Addison MD Work Phone: Ambulatory Surgery Comment on above: Hematemesis with yusra sea [K92.0] Start: 05-10-2025 End: 05-10-2025 Patient encounter procedure Tim Addison MD Work Phone: General Surgery Comment on above: Hematemesis with yusra sea; Upper abdominal pain; Gastric reflux Start: 05-10-2025 End: 05-10-2025 ambulatory CEE KAMARA Facility:[facility] Start: 05-05-2025 End: 05-06-2025 Telephone encounter Tim Addison MD Work Phone: General Surgery Comment on above: Request Outside [facility] Records Start: 05-04-2025 End: 05-04-2025 Follow-up encounter Jamilah Mcgowan APRN.DAILY RELEASE AND DUPE PRINTER Work Phone: [facility] Start: 05-02-2025 End: 05-02-2025 Office outpatient visit 25 minutes Jamilah Mcgowan APRN.DAILY RELEASE AND DUPE PRINTER Work Phone: [facility] Comment on above: Chest pain, unspecif ied type (Primary Dx); Hematemesis with nausea; Upper abdominal pain; Gastric reflux; Early satiety; Irregular heartbeat; Anxiety about health Start: 05-02-2025 End: 05-02-2025 ambulatory CEE KAMARA Facility:[facility] Start: 04-20-2025 End: 04-20-2025 Emergency department patient visit Dr. Ivory Zavaleta MD Work Phone: -Emergency Department Work Phone: Start: 04-20-2025 End: 04-20-2025 Patient encounter procedure Anya Bolivar APRN.DAILY RELEASE AND DUPE PRINTER Work Phone: [facility] Comment on above: Hematemesis, unspeci fied whether nausea present; Abdominal pain, unspecified abdominal location; Shortness of breath Start: 04-20-2025 End: 04-20-2025 ambulatory ANYA BOLIVAR Facility:[facility] Start: 07-11-2022 End: 07-11-2022 Patient encounter procedure Meeta Kamara PA-C Work Phone: [facility] [place] Comment on above: Acute otitis externa of both ears, unspecified type (Primary Dx); Establishing care with new doctor, encounter for Start: 06-23-2022 End: 06-23-2022 Patient encounter procedure Eduar Cooper POCKET SETTER LOCKSTITCH.DAILY RELEASE AND DUPE PRINTER Work Phone: [facility] Comment on above: Acute otitis externa of both ears, unspecified type (Primary Dx) Start: 05-03-2022 End: 05-03-2022 Patient encounter procedure Lona Cooper PA-C Work Phone: [facility] Comment on above: Otorrhea, left (Prim gerardo Dx) Procedures Date Procedure Procedure Detail Performing Clinician Start: 06-16-2025 Esophagogastroduodenoscopy transoral diagnostic Tim Addison MD Work Phone: Start: 05-02-2025 Ecg routine ecg w/least 12 lds i&r only Jamilah Mcgowan POCKET SETTER LOCKSTITCH.DAILY RELEASE AND DUPE PRINTER Work Phone: Start: 04-20-2025 Plain chest X-ray Dr. Ivory Zavaleta MD Work Phone: Start: 04-20-2025 Computed tomography of abdomen and pelvis with intravenous contrast Dr. Ivory Zavaleta MD Work Phone: Start: 04-20-[address] Kandice Zavaleta MD Work Phone: Start: 04-20-2025 Measurement of occult blood in stool specimen using immunoassay Dr. Ivory Zavaleta MD Work Phone: Start: 07-11-2022 Adult depression screening assessment NEIL Kamara PA-C Work Phone: Start: 12-31-2019 Adult depression screening assessment Lona Cooper PA-C Work Phone: Plan of Treatment Date Care Activity Detail Author Start: 07-23-2030 Urine microalbumin profile DTaP,Tdap,Td Vaccine (8 - Td or Tdap) [facility] Start: 06-27-2025 Influenza vaccination [facility] Start: 06-23-2025 End: 06-23-2025 Patient encounter procedure 06/23/2025 1:30 PM EDT Office Visit General Surgery [address] [place] [address] Savana Abarca APRN.DAILY RELEASE AND DUPE PRINTER [address] [place] [address] 06-16 EGD follow up General Surgery Comment on above: 06-16 EGD follow up Start: 06-09-2025 End: 06-09-2025 Patient encounter procedure 06/09/2025 11:30 AM EDT Appointment Ambulatory Surgery [address] [place] [id number] Tim Addison MD [address] [place] [address] Ambulatory Surgery Start: 05-10-2025 End: 05-10-2025 Patient encounter procedure General Surgery Comment on above: Hematemesis with yusra sea [K92.0] CONSULT: Hematemesis with nausea, Upper abdominal pain, Gastric reflux. [facility] 04/20/25- records requested. [facility] Start: 05-02-2025 End: 08-01-2025 Helicobacter pylori Ag [Presence] in Stool by Immunoassay HELICOBACTER PYLORI ANTIGEN BY EIA, STOOL Microbiology Routine Hematemesis with nausea Upper abdominal pain Gastric reflux Expected: 05/02/2025 (Approximate), Expires: 08/01/2025 [facility] Work Phone: Comment on above: Expected: 05/02/2025 (Approximate), Expires: 08/01/2025 Start: 04-20-2025 [facility] Start: 01-19-2025 Urine microalbumin profile DTAP,TDAP,TD (7 - Td or Tdap) [facility] Start: 06-27-2024 Covid-19 Vaccine ( season) Covid-19 Vaccine () [facility] Start: 07-11-2023 Adult depression screening assessment DEPRESSION SCREENING [facility] Start: 06-27-2022 Influenza vaccination INFLUENZA (#1) [facility] Start: 12-25-2021 Anxiety Screening Anxiety Screening [facility] Start: 12-25-2021 HEPATITIS C SCREENING HEPATITIS C [facility] Start: 12-25-2021 Hepatitis C screening Hepatitis C [facility] Start: 12-25-2021 HIV SCREENING HIV SCREENING [facility] Start: 12-25-2021 HIV screening HIV Screening [facility] Start: 12-30-2020 Adult depression screening assessment DEPRESSION SCREENING [facility] Start: 2019 Meningococcal B Vacc ine (1 of 2 - Standard) Meningococcal B Vaccine (1 of 2 - Standard) [facility] Start: 12-25-2018 HPV Vaccine (1 - Mal e 3-dose series) HPV Vaccine (1 - Male 3-dose series) [facility] Start: 12-25-2017 PEDS TO ADULT TRANSI TION ANNUAL ASSESSMENT PEDS TO ADULT TRANSITION ANNUAL ASSESSMENT [facility] Start: 2015 PEDS TO ADULT TRANSI TION INITIAL DISCUSSION PEDS TO ADULT TRANSITION INITIAL DISCUSSION [facility] Start: 12-25-2014 HPV VACCINE (1 - Mal e 2-dose series) HPV VACCINE (1 - Male 2-dose series) [facility] Start: 12-25-2013 MENINGOCOCCAL B: Consider based on risk (1 of 2 - Risk Bexsero 2-dose series) MENINGOCOCCAL B: Consider based on risk (1 of 2 - Risk Bexsero 2-dose series) [facility] Start: 06-27-2004 COVID-19 VACCINE (#1) COVID-19 VACCI NE (#1) [facility] ECG COMPLETE ECG COMPLETE ECG Routine Chest pain, unspecified type 05/02/2025 3:49 PM EDT [facility] End: 05-10-2026 EGD DIAGNOSTIC EGD DIAGNOSTIC Endoscopy Routine Hematemesis with nausea Upper abdominal pain Gastric reflux 1 Occurrences starting 05/10/2025 until 05/10/2026 [facility] Work Phone: Comment on above: 1 Occurrences starti ng 05/10/2025 until 05/10/2026 Patient Education [facility] Work Phone: Patient referral [facility] Work Phone: Tissue Pathology bio psy report [facility] Work Phone: Comment on above: Release Upon Susanin g for 1 Occurrences starting 06/16/2025, 1 completed Immunizations Immunization Date Immunization Notes Care Provider Wninie ho 12-31-2019 hepatitis A vaccine, pediatric/adolescent dosage, 2 dose schedule Lona Denbow PA-C Work Phone: [facility] 12-31-2019 influenza, injectabl e, quadrivalent, preservative free Lona Denbow PA-C Work Phone: [facility] 12-31-2019 meningococcal polysaccharide (groups A, C, Y and W-135) diphtheria toxoid conjugate vaccine (MCV4P) Lona Denbow PA-C Work Phone: [facility] 12-31-2019 influenza virus vacc ine, unspecified formulation Anya Bolivar POCKET SETTER LOCKSTITCH.DAILY RELEASE AND DUPE PRINTER Work Phone: [facility] 08-02-2016 influenza, injectabl e, quadrivalent, preservative free Lona Denbow PA-C Work Phone: [facility] Work Phone: 09-09-2015 influenza, injectabl e, quadrivalent, contains preservative Lona Denbow PA-C Work Phone: [facility] Work Phone: 01-19-2015 meningococcal polysaccharide (groups A, C, Y and W-135) diphtheria toxoid conjugate vaccine (MCV4P) Lona Denbow PA-C Work Phone: [facility] 01-19-2015 tetanus toxoid, redu tiara diphtheria toxoid, and acellular pertussis vaccine, adsorbed Lona Denbow PA-C Work Phone: [facility] 08-11-2014 influenza, injectabl e, quadrivalent, preservative free Lona Denbow PA-C Work Phone: [facility] Work Phone: 09-11-2013 influenza virus vacc ine, unspecified formulation Lona Denbow PA-C Work Phone: [facility] Work Phone: 11-12-2012 influenza virus vacc ine, unspecified formulation Lona Denbow PA-C Work Phone: [facility] 05-25-2012 varicella virus vaccine Maday abraham Denbow PA-C Work Phone: [facility] Work Phone: 01-01-2008 diphtheria, tetanus toxoids and acellular pertussis vaccine Lona Cooper PA-C Work Phone: [facility] Work Phone: 01-01-2008 measles, mumps and rubella virus vaccine Lona Ashleybow PA-C Work Phone: [facility] Work Phone: 01-01-2008 poliovirus vaccine, inactivated Lona Cooper PA-C Work Phone: [facility] Work Phone: 09-14-2007 influenza virus vacc ine, whole virus Lona Cooper PA-C Work Phone: [facility] 03-28-2005 diphtheria, tetanus toxoids and acellular pertussis vaccine Lonakaren Ashleybow PA-C Work Phone: [facility] Work Phone: 03-28-2005 haemophilus influenz ae type b vaccine, HbOC conjugate Lonakaren sAhleybow PA-C Work Phone: [facility] Work Phone: 12-28-2004 measles, mumps and rubella virus vaccine Lona Ashleybow PA-C Work Phone: [facility] Work Phone: 12-28-2004 varicella virus vaccine Madaybrunilda Cooper PA-C Work Phone: [facility] Work Phone: 07-03-2004 DTaP-hepatitis B and poliovirus vaccine Lonakaren Ashleybow PA-C Work Phone: [facility] Work Phone: 07-03-2004 haemophilus influenz ae type b vaccine, HbOC conjugate Lona Ashleybow PA-C Work Phone: [facility] Work Phone: 07-03-2004 pneumococcal conjuga te vaccine, 7 valent Lona Lumafit PA-C Work Phone: [facility] Work Phone: 05-07-2004 DTaP-hepatitis B and poliovirus vaccine Lona Denbow PA-C Work Phone: [facility] Work Phone: 05-07-2004 haemophilus influenz ae type b vaccine, HbOC conjugate Lona Denbow PA-C Work Phone: [facility] Work Phone: 05-07-2004 pneumococcal conjuga te vaccine, 7 valent Lona Denbow PA-C Work Phone: [facility] Work Phone: 02-27-2004 DTaP-hepatitis B and poliovirus vaccine Lona Denbow PA-C Work Phone: [facility] Work Phone: 02-27-2004 haemophilus influenz ae type b vaccine, HbOC conjugate Lona Denbow PA-C Work Phone: [facility] Work Phone: 02-27-2004 pneumococcal conjuga te vaccine, 7 valent Lona Denbow PA-C Work Phone: [facility] Work Phone: 2003 hepatitis B vaccine, pediatric or pediatric/adolescent dosage Lona Denbow PA-C Work Phone: [facility] Work Phone: Payers Date Payer Category Payer Self-pay 2022 Unknown [id number] 2017 Medicaid [employer] [employer] [id number] 2017-Present [phone] [place] [id number] Medicaid [id number] 2017 Medicaid [id number] Self-pay SELF PAY INSURANCE [id number] Unknown [facility] [id number] Unknown [id number] Social History Date Type Detail Facility Start: 11-19-2011 End: 04-20-2025 Tobacco smoking status NHIS Never smoked tobacco [facility] Start: 05-03-2022 End: 04-20-2025 Alcohol intake Not Asked [facility] Start: 2003 Sex Assigned At Not on file C [facility] Start: 04-23-2022 End: 07-11-2022 Exposure to SARS-CoV-2 (event) Not sure [facility] Start: 11-19-2011 Tobacco use and exposure Smokeless tobacco non-user [facility] Start: 2003 Sex Assigned At Male [facility] Start: 04-20-2025 End: 05-02-2025 History of Social function [facility] Start: 04-20-2025 End: 05-02-2025 Tobacco use panel [facility] Start: 09-27-2012 Adult Depression Screening Assessment 2 [facility] Start: 05-02-2025 End: 06-22-2025 Alcoholic beverage intake Ex-drinker (finding) [facility] Has the [employer], or [employer] threatened to shut off services in your home in past 12Mo No [facility] Are you now , , , , never or living with a partner? Never [facility] How often to you hav e a drink containing alcohol? Monthly or less [facility] How many standard drinks containing alcohol do you have on a typical day? 1 or 2 [facility] How often do you hav e 6 or more drinks on 1 occasion? Never [facility] Do you feel stress - tense, restless, nervous, or anxious, or unable to sleep at night because your mind is troubled all the time - these days [OSQ] To some extent [facility] (I/We) worried natalia er (my/our) food would run out before (I/we) got money to buy more. Never true [facility] Functional Status Date Assessment Result Facility 05-02-2025 Total score [AUDIT-C] 1 05/02/20 10:43 AM EDT Marsha Gannon [facility] 05-02-2025 How often to you hav e a drink containing alcohol? Monthly or less 05/02/2025 10:43 AM EDT Marsha Gannon Monthly or less [facility] 05-02-[address] inks containing alcohol do you have on a typical day? 1 or 2 05/02/2025 10:43 AM EDT Marsha Gannon 1 or 2 [facility] 05-02-2025 How often do you hav e 6 or more drinks on 1 occasion? Never 05/02/2025 10:43 AM EDT Marsha Gannon Never [facility] 01-19-2015 Are you deaf, or do you have serious difficulty hearing No 01/19/2015 1:10 PM EDT Maryann Miles LPN No [facility] 01-19-2015 Are you blind, or do you have serious difficulty seeing, even when wearing glasses No 01/19/2015 1:10 PM DMITRIT Maryann Miles LPN No [facility] 01-19-2015 Do you have serious difficulty walking or climbing stairs No 01/19/2015 1:10 PM EDT Maryann Miles LPN No [facility] 01-19-2015 Do you have difficul ty dressing or bathing No 01/19/2015 1:10 PM EDT Maryann Miles LPN No [facility] Mental Status Date Assessment Result Facility 01-19-2015 Because of a physica l, mental, or emotional condition, do you have serious difficulty concentrating, remembering, or making decisions No 01/19/2015 1:10 PM Maryann Morton LPN No [facility] Clinical Notes 01-19-2015 to 06-23-2025 Saavna Abarca APRN.DAILY RELEASE AND DUPE PRINTER - 06/23/2025 1:30 PM EDTDischarge Instr - Nursing - Court Caicedo RN - 06/16/2025 12:01 PM EDTDischarge Instr - Nursing - Court Caicedo RN - 06/16/2025 12:01 PM EDT Note Date & Type Note Facility 06-23-2025 History of Present illness Narrative FOLLOW UP VISIT - ENDOSCOPY Mk Chin 2005 [id number] REFERRING PHYSICIAN: No referring provider defined for this encounter. Mk Chin is a patient I am following for hematemesis x [address] Addison performed upper endoscopy on 06/16/25. The patient was found to have Impression: - Z-line regular, 42 cm from the incisors. Biopsied. - Normal stomach. Biopsied. - Normal ampulla and examined duodenum. Biopsied. Pathology demonstrated: FINAL DIAGNOSIS A. Small bowel, duodenum, biopsy: - Duodenal mucosa within normal limits. B. Stomach, antrum, biopsy: - Corpus mucosa within normal limits. - No morphologic evidence of Helicobacter. C. Esophagus, distal, biopsy: - Squamous mucosa with mild reflux-type changes. D. Esophagus, mid, biopsy: - Squamous mucosa within normal limits. - No increase in intraepithelial eosinophils identified. The patient notes no complaints since the procedure. -notes he is not currently taking protonix VITALS: There were no vitals taken for this visit. General: patient is alert, cooperative, pleasant and in no acute distress On examination, the abdomen is mildyl tender at the epigastric region. Assessment ASSESSMENT/PLAN: 1. Gastroesophageal reflux disease without esophagitis - ICD9: 530.81, ICD10: K21.9 - Discussed lifestyle modifications including losing weight, limiting caffeine, no meals three hours before sleep, and head of bed elevation - Continue treatment with Protonix 40mg for 2 more months - Limit caffeine The operative findings and pathology report were reviewed with the patient, and the patient has had the opportunity to ask questions and have questions answered. If the patient notes any problems or changes in bowel function, the patient should contact me immediately. Otherwise I recommend follow up endoscopy as symptoms dictate. HM updated. Discussed treatment plan and patient voices understanding. Patient's questions answered appropriately. Medications and potential side effects were discussed and patient voices understanding. Return to the office as scheduled or as needed for worsening/no improvement. Savana Abarca APRN.DAILY RELEASE AND DUPE PRINTER documented in this encounter [facility] 06-23-2025 Note HNO ID: [id number] Author: SAVANA ABARCA APRN.CNP Service: ? Author Type: Nurse Practitioner Type: Progress Notes Filed: 06/23/2025 14:26 Note Text: FOLLOW UP VISIT - ENDOSCOPY Mk Chin 2005 [id number] REFERRING PHYSICIAN: No referring provider defined for this encounter. Mk Chin is a patient I am following for hematemesis x [address] Addison performed upper endoscopy on 06/16/25. The patient was found to have Impression: - Z-line regular, 42 cm from the incisors. Biopsied. - Normal stomach. Biopsied. - Normal ampulla and examined duodenum. Biopsied. Pathology demonstrated: FINAL DIAGNOSIS A. Small bowel, duodenum, biopsy: - Duodenal mucosa within normal limits. B. Stomach, antrum, biopsy: - Corpus mucosa within normal limits. - No morphologic evidence of Helicobacter. C. Esophagus, distal, biopsy: - Squamous mucosa with mild reflux-type changes. D. Esophagus, mid, biopsy: - Squamous mucosa within normal limits. - No increase in intraepithelial eosinophils identified. The patient notes no complaints since the procedure. -notes he is not currently taking protonix VITALS: There were no vitals taken for this visit. General: patient is alert, cooperative, pleasant and in no acute distress On examination, the abdomen is mildyl tender at the epigastric region. Assessment ASSESSMENT/PLAN: 1. Gastroesophageal reflux disease without esophagitis - ICD9: 530.81, ICD10: K21.9 - Discussed lifestyle modifications including losing weight, limiting caffeine, no meals three hours before sleep, and head of bed elevation - Continue treatment with Protonix 40mg for 2 more months - Limit caffeine The operative findings and pathology report were reviewed with the patient, and the patient has had the opportunity to ask questions and have questions answered. If the patient notes any problems or changes in bowel function, the patient should contact me immediately. Otherwise I recommend follow up endoscopy as symptoms dictate. HM updated. Discussed treatment plan and patient voices understanding. Patient's questions answered appropriately. Medications and potential side effects were discussed and patient voices understanding. Return to the office as scheduled or as needed for worsening/no improvement. Savana Abarca APRN.DAILY RE[employer] AND [employer]INTER [facility] 06-16-2025 Note Formatting of this n ote might be different from the original. The patient received a copy of Colonoscopy discharge instructions that contain information for how to contact the physician who performed the procedure and when to seek medical care. [facility] 06-16-2025 Miscellaneous Notes The patient received a copy of Colonoscopy discharge instructions that contain information for how to contact the physician who performed the procedure and when to seek medical care. documented in this encounter [facility] 06-16-2025 History and physical note HISTORY AND PHYSICAL Mk Chin 2005 REFERRING PHYSICIAN: Jamilah Mcgowan, APR* CHIEF COMPLAINT: Consult (Hamtemesis, nausea abd pain) HPI: Mk Chin is a 19-year-old male presenting with hematemesis and persistent abdominal pain. Mk reports an episode of hematemesis, which lasted approximately 15 minutes, followed by the onset of abdominal pain. He was evaluated in the ED, where he received a single dose of medication via IV for nausea, but no oral medications were prescribed. Since the ED visit, he has not experienced any further episodes of emesis and denies melena. However, he continues to experience abdominal pain and discomfort. He is currently taking Protonix, which was prescribed by his primary care physician one week ago. The patient is being seen by me today at the request of Dr. Mcgowan for my opinion and advice regarding Hematemesis with nausea Upper abdominal pain Gastric reflux. PAST MEDICAL HISTORY PAST MEDICAL HISTORY Diagnosis Date Color blindness partial Gastric reflux Routine or ritual circumcision PAST SURGICAL HISTORY PAST SURGICAL HISTORY Procedure Laterality Date CIRCUMCISION W/CLAMP/OTH DEV W/BLOCK PAST SURGICAL HISTORY OF 07/2020 surgery leg wound CURRENT MEDICATIONS Current Outpatient Medications Medication Sig pantoprazole DR (PROTONIX) 40 mg tablet Take 1 tablet by mouth once daily. sucralfate (CARAFATE) 1 gram tablet Take 1 tablet by mouth three times a day. acetic acid (VOSOL) 2 % otic solution Use 4 Drops in both ears three times daily. (Patient not taking: Reported on 04/20/2025) EPINEPHrine (EPIPEN) 0.3 mg/0.3 mL auto-injector Inject 0.3 mL intramuscularly as needed (for allergic reaction.Seek emergent medical care immediately after use.Disp:one 2-pack w/head animal trainer). (Patient not taking: Reported on 05/10/2025) fexofenadine ER (ESTEFANI) 180 mg tablet Take 1 tablet by mouth once daily. (Patient not taking: Reported on 04/20/2025) No current facility-administered medications for this visit. ALLERGIES: Seasonal Allergies PERSONAL HISTORY: SOCIAL HISTORY Social History Tobacco Use Smoking status: Never Smokeless tobacco: Never Vaping Use Vaping status: Never Used Substance Use Topics Alcohol use: Not Currently Drug use: Never FAMILY HISTORY: FAMILY HISTORY FAMILY HISTORY Problem Relation Age of Onset Hypertension Maternal Grandmother other (diabetes) Maternal Grandmother other (skin cancer) Maternal Grandfather Diabetes Paternal Grandfather Hypertension Paternal Grandfather Prostate Cancer Paternal Grandfather REVIEW OF SYMPTOMS: The review of systems data was entered by the nurse and reviewed by me There are no exam notes on file for this visit. PHYSICAL EXAMINATION: General: The patient is 19 year old male, well nourished, well hydrated in no acute distress. The patient is oriented to time, place, and person. VITALS: Blood pressure 126/78, pulse 65, temperature 36.7 C (98 F), height 180.3 cm (5' 11), weight 108 kg (238 lb 3.2 oz), SpO2 99%. Body mass index is 33.22 kg/m . HEENT: Normal cephalic, ataumatic, pupils are equally round, sclera are anicteric, mucous membranes are moist, oropharynx is clear. Neck has no masses, asymmetry or lymphadenopathy. Thyroid is unremarkable. Respiratory: Clear to auscultation and percussion. Normal respiratory excursion and pattern. Cardiac: Examination is regular rate and rhythm. Abdominal exam: Soft, nontender, with no palpable masses. No hepatosplenomegaly. No palpable hernias. Rectal exam: exam deferred Extremities: no clubbing, cyanosis or edema. No adenopathy. Other: LABORATORY VALUES: As Noted RADIOLOGIC STUDIES: As Noted Assessment IMPRESSION: Hematemesis with nausea Upper abdominal pain Gastric reflux PLAN: 1. Hematemesis with nausea (K92.0) Upper abdominal pain (R10.10) Likely Rosanna-Perry tear in the distal esophagus due to violent retching. Patient continues to experience pain and discomfort; no medications were prescribed in the emergency department, but received one dose of IV medication for nausea. Currently on Protonix, started a week ago. - Prescribed Carafate to be dissolved in a tablespoon of water and taken TID to coat the esophageal tear and promote healing. - Continue Protonix as prescribed. - Scheduled esophagogastroduodenoscopy (EGD) to visualize and assess the extent of the tear; Renato, the operating room scheduler, will contact the patient to arrange the procedure after the . - Advised patient to consume small meals and avoid coarse foods such as nuts, seeds, and popcorn. - Educated patient that healing typically takes 4-6 weeks. 2. Gastric reflux (K21.9) Currently managed with Protonix. Continue Protonix as prescribed. Diagnoses: (K92.0) Hematemesis with nausea (R10.10) Upper abdominal pain (K21.9) Gastric reflux My findings have been communicated to Dr. Mcgowan via shared medical record. This note will be forwarded to Dr. Cee Kamara PA-C. Return to Clinic: The patient is instructed to follow-up with me 1 week post operatively. Tim Addison III, MD UPDATED HISTORY AND PHYSICAL EXAMINATION SERVICE DATE: 06/16/2025 SERVICE TIME: 11:00 AM PHYSICAL EXAM MUST BE COMPLETED ON ADMISSION The History and Physical (completed in the past 30 days) has been reviewed and the patient has been examined. The contents accurately reflect the patient's condition with the following additions or revisions since the H&P was completed. Examination indicates no changes. This H&P can be found in the attached. SIGNATURE: Tim Addison III, MD PATIENT NAME: Mk Chin DATE: June 16, 2025 TIME: 11:00 AM [facility] 06-16-2025 History and physical note HISTORY AND PHYSICAL Mk Chin 2005 REFERRING PHYSICIAN: Jamilah Mcgowan, APR* CHIEF COMPLAINT: Consult (Hamtemesis, nausea abd pain) HPI: Mk Chin is a 19-year-old male presenting with hematemesis and persistent abdominal pain. Mk reports an episode of hematemesis, which lasted approximately 15 minutes, followed by the onset of abdominal pain. He was evaluated in the ED, where he received a single dose of medication via IV for nausea, but no oral medications were prescribed. Since the ED visit, he has not experienced any further episodes of emesis and denies melena. However, he continues to experience abdominal pain and discomfort. He is currently taking Protonix, which was prescribed by his primary care physician one week ago. The patient is being seen by me today at the request of Dr. Mcgowan for my opinion and advice regarding Hematemesis with nausea Upper abdominal pain Gastric reflux. PAST MEDICAL HISTORY PAST MEDICAL HISTORY Diagnosis Date Color blindness partial Gastric reflux Routine or ritual circumcision PAST SURGICAL HISTORY PAST SURGICAL HISTORY Procedure Laterality Date CIRCUMCISION W/CLAMP/OTH DEV W/BLOCK PAST SURGICAL HISTORY OF 07/2020 surgery leg wound CURRENT MEDICATIONS Current Outpatient Medications Medication Sig pantoprazole DR (PROTONIX) 40 mg tablet Take 1 tablet by mouth once daily. sucralfate (CARAFATE) 1 gram tablet Take 1 tablet by mouth three times a day. acetic acid (VOSOL) 2 % otic solution Use 4 Drops in both ears three times daily. (Patient not taking: Reported on 04/20/2025) EPINEPHrine (EPIPEN) 0.3 mg/0.3 mL auto-injector Inject 0.3 mL intramuscularly as needed (for allergic reaction.Seek emergent medical care immediately after use.Disp:one 2-pack w/head animal trainer). (Patient not taking: Reported on 05/10/2025) fexofenadine ER (ESTEFANI) 180 mg tablet Take 1 tablet by mouth once daily. (Patient not taking: Reported on 04/20/2025) No current facility-administered medications for this visit. ALLERGIES: Seasonal Allergies PERSONAL HISTORY: SOCIAL HISTORY Social History Tobacco Use Smoking status: Never Smokeless tobacco: Never Vaping Use Vaping status: Never Used Substance Use Topics Alcohol use: Not Currently Drug use: Never FAMILY HISTORY: FAMILY HISTORY FAMILY HISTORY Problem Relation Age of Onset Hypertension Maternal Grandmother other (diabetes) Maternal Grandmother other (skin cancer) Maternal Grandfather Diabetes Paternal Grandfather Hypertension Paternal Grandfather Prostate Cancer Paternal Grandfather REVIEW OF SYMPTOMS: The review of systems data was entered by the nurse and reviewed by me There are no exam notes on file for this visit. PHYSICAL EXAMINATION: General: The patient is 19 year old male, well nourished, well hydrated in no acute distress. The patient is oriented to time, place, and person. VITALS: Blood pressure 126/78, pulse 65, temperature 36.7 C (98 F), height 180.3 cm (5' 11), weight 108 kg (238 lb 3.2 oz), SpO2 99%. Body mass index is 33.22 kg/m . HEENT: Normal cephalic, ataumatic, pupils are equally round, sclera are anicteric, mucous membranes are moist, oropharynx is clear. Neck has no masses, asymmetry or lymphadenopathy. Thyroid is unremarkable. Respiratory: Clear to auscultation and percussion. Normal respiratory excursion and pattern. Cardiac: Examination is regular rate and rhythm. Abdominal exam: Soft, nontender, with no palpable masses. No hepatosplenomegaly. No palpable hernias. Rectal exam: exam deferred Extremities: no clubbing, cyanosis or edema. No adenopathy. Other: LABORATORY VALUES: As Noted RADIOLOGIC STUDIES: As Noted Assessment IMPRESSION: Hematemesis with nausea Upper abdominal pain Gastric reflux PLAN: 1. Hematemesis with nausea (K92.0) Upper abdominal pain (R10.10) Likely Rosanna-Perry tear in the distal esophagus due to violent retching. Patient continues to experience pain and discomfort; no medications were prescribed in the emergency department, but received one dose of IV medication for nausea. Currently on Protonix, started a week ago. - Prescribed Carafate to be dissolved in a tablespoon of water and taken TID to coat the esophageal tear and promote healing. - Continue Protonix as prescribed. - Scheduled esophagogastroduodenoscopy (EGD) to visualize and assess the extent of the tear; Renato, the operating room scheduler, will contact the patient to arrange the procedure after the . - Advised patient to consume small meals and avoid coarse foods such as nuts, seeds, and popcorn. - Educated patient that healing typically takes 4-6 weeks. 2. Gastric reflux (K21.9) Currently managed with Protonix. Continue Protonix as prescribed. Diagnoses: (K92.0) Hematemesis with nausea (R10.10) Upper abdominal pain (K21.9) Gastric reflux My findings have been communicated to Dr. Mcgowan via shared medical record. This note will be forwarded to Dr. Cee Kamara PA-C. Return to Clinic: The patient is instructed to follow-up with me 1 week post operatively. Tim Addison III, MD UPDATED HISTORY AND PHYSICAL EXAMINATION SERVICE DATE: 06/16/2025 SERVICE TIME: 11:00 AM PHYSICAL EXAM MUST BE COMPLETED ON ADMISSION The History and Physical (completed in the past 30 days) has been reviewed and the patient has been examined. The contents accurately reflect the patient's condition with the following additions or revisions since the H&P was completed. Examination indicates no changes. This H&P can be found in the attached. SIGNATURE: Tim Addison III, MD PATIENT NAME: Mk Chin DATE: June 16, 2025 TIME: 11:00 AM documented in this encounter [facility] 05-10-2025 Note HNO ID: [id number] Author: TIM ADDISON MD Service: ? Author Type: Physician Type: Progress Notes Filed: 05/10/2025 11:53 Note Text: HISTORY AND PHYSICAL Mk Chin 2005 REFERRING PHYSICIAN: Jamilah Mcgowan, APR* CHIEF COMPLAINT: Consult (Hamtemesis, nausea abd pain) HPI: Mk Chin is a 19-year-old male presenting with hematemesis and persistent abdominal pain. Mk reports an episode of hematemesis, which lasted approximately 15 minutes, followed by the onset of abdominal pain. He was evaluated in the ED, where he received a single dose of medication via IV for nausea, but no oral medications were prescribed. Since the ED visit, he has not experienced any further episodes of emesis and denies melena. However, he continues to experience abdominal pain and discomfort. He is currently taking Protonix, which was prescribed by his primary care physician one week ago. The patient is being seen by me today at the request of Dr. Mcgowan for my opinion and advice regarding Hematemesis with nausea Upper abdominal pain Gastric reflux. PAST MEDICAL HISTORY Diagnosis Date Color blindness partial Gastric reflux Routine or ritual circumcision PAST SURGICAL HISTORY Procedure Laterality Date CIRCUMCISION W/CLAMP/OTH DEV W/BLOCK PAST SURGICAL HISTORY OF 07/2020 surgery leg wound Current Outpatient Medications Medication Sig pantoprazole DR (PROTONIX) 40 mg tablet Take 1 tablet by mouth once daily. sucralfate (CARAFATE) 1 gram tablet Take 1 tablet by mouth three times a day. acetic acid (VOSOL) 2 % otic solution Use 4 Drops in both ears three times daily. (Patient not taking: Reported on 04/20/2025) EPINEPHrine (EPIPEN) 0.3 mg/0.3 mL auto-injector Inject 0.3 mL intramuscularly as needed (for allergic reaction.Seek emergent medical care immediately after use.Disp:one 2-pack w/head animal trainer). (Patient not taking: Reported on 05/10/2025) fexofenadine ER (ESTEFANI) 180 mg tablet Take 1 tablet by mouth once daily. (Patient not taking: Reported on 04/20/2025) No current facility-administered medications for this visit. ALLERGIES: Seasonal Allergies PERSONAL HISTORY: Social History Tobacco Use Smoking status: Never Smokeless tobacco: Never Vaping Use Vaping status: Never Used Substance Use Topics Alcohol use: Not Currently Drug use: Never FAMILY HISTORY: FAMILY HISTORY Problem Relation Age of Onset Hypertension Maternal Grandmother other (diabetes) Maternal Grandmother other (skin cancer) Maternal Grandfather Diabetes Paternal Grandfather Hypertension Paternal Grandfather Prostate Cancer Paternal Grandfather REVIEW OF SYMPTOMS: The review of systems data was entered by the nurse and reviewed by me There are no exam notes on file for this visit. PHYSICAL EXAMINATION: General: The patient is 19 year old male, well nourished, well hydrated in no acute distress. The patient is oriented to time, place, and person. VITALS: Blood pressure 126/78, pulse 65, temperature 36.7 ?C (98 ?F), height 180.3 cm (5' 11), weight 108 kg (238 lb 3.2 oz), SpO2 99%. Body mass index is 33.22 kg/m?. HEENT: Normal cephalic, ataumatic, pupils are equally round, sclera are anicteric, mucous membranes are moist, oropharynx is clear. Neck has no masses, asymmetry or lymphadenopathy. Thyroid is unremarkable. Respiratory: Clear to auscultation and percussion. Normal respiratory excursion and pattern. Cardiac: Examination is regular rate and rhythm. Abdominal exam: Soft, nontender, with no palpable masses. No hepatosplenomegaly. No palpable hernias. Rectal exam: exam deferred Extremities: no clubbing, cyanosis or edema. No adenopathy. Other: LABORATORY VALUES: As Noted RADIOLOGIC STUDIES: As Noted Assessment IMPRESSION: Hematemesis with nausea Upper abdominal pain Gastric reflux PLAN: 1. Hematemesis with nausea (K92.0) Upper abdominal pain (R10.10) Likely Rosanna-Perry tear in the distal esophagus due to violent retching. Patient continues to experience pain and discomfort; no medications were prescribed in the emergency department, but received one dose of IV medication for nausea. Currently on Protonix, started a week ago. - Prescribed Carafate to be dissolved in a tablespoon of water and taken TID to coat the esophageal tear and promote healing. - Continue Protonix as prescribed. - Scheduled esophagogastroduodenoscopy (EGD) to visualize and assess the extent of the tear; Renato, the operating room scheduler, will contact the patient to arrange the procedure after the . - Advised patient to consume small meals and avoid coarse foods such as nuts, seeds, and popcorn. - Educated patient that healing typically takes 4-6 weeks. 2. Gastric reflux (K21.9) Currently managed with Protonix. Continue Protonix as prescribed. Diagnoses: (K92.0) Hematemesis with nausea (R10.10) Upper abdominal pain (K21.9) Gastric reflux My findings have been communicate (more content not included)... [facility] 05-10-2025 History of Present illness Narrative HISTORY AND PHYSICAL Mk Chin 2005 REFERRING PHYSICIAN: Jamilah Mcgowan, JAN* CHIEF COMPLAINT: Consult (Hamtemesis, nausea abd pain) HPI: Mk Chin is a 19-year-old male presenting with hematemesis and persistent abdominal pain. Mk reports an episode of hematemesis, which lasted approximately 15 minutes, followed by the onset of abdominal pain. He was evaluated in the ED, where he received a single dose of medication via IV for nausea, but no oral medications were prescribed. Since the ED visit, he has not experienced any further episodes of emesis and denies melena. However, he continues to experience abdominal pain and discomfort. He is currently taking Protonix, which was prescribed by his primary care physician one week ago. The patient is being seen by me today at the request of Dr. Mcgowan for my opinion and advice regarding Hematemesis with nausea Upper abdominal pain Gastric reflux. PAST MEDICAL HISTORY Diagnosis Date Color blindness partial Gastric reflux Routine or ritual circumcision PAST SURGICAL HISTORY Procedure Laterality Date CIRCUMCISION W/CLAMP/OTH DEV W/BLOCK PAST SURGICAL HISTORY OF 07/2020 surgery leg wound Current Outpatient Medications Medication Sig pantoprazole DR (PROTONIX) 40 mg tablet Take 1 tablet by mouth once daily. sucralfate (CARAFATE) 1 gram tablet Take 1 tablet by mouth three times a day. acetic acid (VOSOL) 2 % otic solution Use 4 Drops in both ears three times daily. (Patient not taking: Reported on 04/20/2025) EPINEPHrine (EPIPEN) 0.3 mg/0.3 mL auto-injector Inject 0.3 mL intramuscularly as needed (for allergic reaction.Seek emergent medical care immediately after use.Disp:one 2-pack w/head animal trainer). (Patient not taking: Reported on 05/10/2025) fexofenadine ER (ESTEFANI) 180 mg tablet Take 1 tablet by mouth once daily. (Patient not taking: Reported on 04/20/2025) No current facility-administered medications for this visit. ALLERGIES: Seasonal Allergies PERSONAL HISTORY: Social History Tobacco Use Smoking status: Never Smokeless tobacco: Never Vaping Use Vaping status: Never Used Substance Use Topics Alcohol use: Not Currently Drug use: Never FAMILY HISTORY: FAMILY HISTORY Problem Relation Age of Onset Hypertension Maternal Grandmother other (diabetes) Maternal Grandmother other (skin cancer) Maternal Grandfather Diabetes Paternal Grandfather Hypertension Paternal Grandfather Prostate Cancer Paternal Grandfather REVIEW OF SYMPTOMS: The review of systems data was entered by the nurse and reviewed by me There are no exam notes on file for this visit. PHYSICAL EXAMINATION: General: The patient is 19 year old male, well nourished, well hydrated in no acute distress. The patient is oriented to time, place, and person. VITALS: Blood pressure 126/78, pulse 65, temperature 36.7 C (98 F), height 180.3 cm (5' 11), weight 108 kg (238 lb 3.2 oz), SpO2 99%. Body mass index is 33.22 kg/m . HEENT: Normal cephalic, ataumatic, pupils are equally round, sclera are anicteric, mucous membranes are moist, oropharynx is clear. Neck has no masses, asymmetry or lymphadenopathy. Thyroid is unremarkable. Respiratory: Clear to auscultation and percussion. Normal respiratory excursion and pattern. Cardiac: Examination is regular rate and rhythm. Abdominal exam: Soft, nontender, with no palpable masses. No hepatosplenomegaly. No palpable hernias. Rectal exam: exam deferred Extremities: no clubbing, cyanosis or edema. No adenopathy. Other: LABORATORY VALUES: As Noted RADIOLOGIC STUDIES: As Noted Assessment IMPRESSION: Hematemesis with nausea Upper abdominal pain Gastric reflux PLAN: 1. Hematemesis with nausea (K92.0) Upper abdominal pain (R10.10) Likely Rosanna-Perry tear in the distal esophagus due to violent retching. Patient continues to experience pain and discomfort; no medications were prescribed in the emergency department, but received one dose of IV medication for nausea. Currently on Protonix, started a week ago. - Prescribed Carafate to be dissolved in a tablespoon of water and taken TID to coat the esophageal tear and promote healing. - Continue Protonix as prescribed. - Scheduled esophagogastroduodenoscopy (EGD) to visualize and assess the extent of the tear; Renato, the operating room scheduler, will contact the patient to arrange the procedure after the . - Advised patient to consume small meals and avoid coarse foods such as nuts, seeds, and popcorn. - Educated patient that healing typically takes 4-6 weeks. 2. Gastric reflux (K21.9) Currently managed with Protonix. Continue Protonix as prescribed. Diagnoses: (K92.0) Hematemesis with nausea (R10.10) Upper abdominal pain (K21.9) Gastric reflux My findings have been communicated to Dr. Mcgowan via shared medical record. This note will be forwarded to Dr. Cee Kamara PA-C. Return to Clinic: The patient is instructed to follow-up with me 1 week post operatively. Tim Addison III, MD documented in this encounter [facility] 05-06-2025 Telephone encounter Note Images have been pushed. Ines Yin LPN [facility] 05-06-2025 Miscellaneous Notes Images have been pushed. Ines Yin LPN [facility] of request. Ines Yin LPN Patient has appointment 05/10/2025 in General Surgery. Seen at [facility] in March. Faxed request for records/Push. Ines Yin LPN documented in this encounter [facility] 05-05-2025 Telephone encounter Note [facility] of request. Ines Yin LPN [facility] 05-05-2025 Telephone encounter Note Patient has appointment 05/10/2025 in General Surgery. Seen at [facility] in March. Faxed request for records/Push. Ines Yin LPN [facility] 05-02-2025 Instructions Jamilah Mcgowan APRN.ANSELMO - 05/02/2025 4:00 PM EDT We discussed your follow-up after your emergency room visit for hematemesis (vomiting with blood): - You reported no further episodes of vomiting with blood since your ER visit. However, you are now experiencing reflux, stomach pain, decreased appetite, and anxiety. - I believe your symptoms are likely due to gastroesophageal reflux disease (GERD), which occurs when stomach acid irritates the esophagus and stomach lining. Another possible cause is an infection with H. pylori, a bacteria that can cause ulcers. We discussed your care plan moving forward: - Medication: I am starting you on pantoprazole (Protonix), a prescription-strength medication to reduce stomach acid. This has been sent to your preferred [facility] pharmacy. - Testing: We will test for H. pylori using a stool test. Please provide a stool sample as soon as possible. If the test is positive, we will treat the infection with antibiotics. - Specialist Referral: I am referring you to general surgery to discuss the possibility of an upper endoscopy (scope) to evaluate your esophagus and stomach. This referral is being made to avoid delays in care, as gastroenterology appointments can take longer to schedule. We discussed your anxiety: - Your anxiety appears to be related to your current health concerns and symptoms. This may also be contributing to your decreased appetite. Next steps: - Begin taking pantoprazole as prescribed. - Complete the H. pylori stool test and return the sample as soon as possible. - We will contact you with the results of the stool test and next steps for treatment if needed. - Attend your appointment with general surgery for further evaluation and discussion of an upper endoscopy. If your symptoms worsen, you develop new symptoms (such as chest pain unrelated to reflux, difficulty swallowing, or blood in your stool), or you have any concerns, please contact our office. documented in this encounter [facility] 05-02-2025 Note HNO ID: [id number] Author: JAMILAH MCGOWAN APRN.ANSELMO Service: ? Author Type: Nurse Practitioner Type: Progress Notes Filed: 05/02/2025 16:11 Note Text: CC: Patient presents with: ER F/U: [facility] GI bleed, acid reflux, epigastric pain HPI Recording using [employer] software for draft documentation of the visit was discussed with the patient/authorized billing representative; all questions welcomed and answered. Patient/authorized billing representative agreed to proceed Mk Chin is a 19-year-old male presenting for follow-up after an ER visit for hematemesis. Mk was seen in the ER on 04/20 for hematemesis following cigar smoking. He experienced nausea and two episodes of emesis streaked with bright red blood. He denies frequent smoking, noting this was only the second cigar he has ever smoked. ER workup included a CT abdomen/pelvis, which was negative for acute intra-abdominal process, and a chest X-ray, which showed mild pulmonary vascular congestion but no focal pulmonary mass or consolidations. Labs were essentially unremarkable. Stool for occult blood was negative. The ER physician suspected a Rosanna-Perry tear and instructed Mk to follow up with his PCP. No medications were prescribed, and he was discharged home. Since the ER visit, Mk reports no further episodes of emesis but has experienced weird abdominal pains and panic attacks. The abdominal pain is diffuse, with primary localization to the epigastric region and secondary localization to the lower abdomen and corresponding areas of the back. He also reports reflux, particularly postprandial, but denies dysphagia. He notes a significant decrease in appetite, feeling full all the time, but denies unintentional weight loss. He has chest pain that correlates with the reflux. He has not taken any medications for reflux and was not prescribed any in the ER. He denies any history of stomach problems, reflux, or significant medical history. He denies any family history of stomach or esophageal problems. Mk denies fever, diarrhea, constipation, cough, or recent illness. He also denies tobacco use, vaping, alcohol consumption, or caffeine intake. He reports occasional use of ibuprofen or Aleve, approximately twice a year. He denies any specific dietary triggers for his reflux and describes his diet as unhealthy prior to the onset of symptoms. He reports feeling like his heart is racing. He denies any history of chest pain, palpitations, or irregular heartbeats. Review of Systems Respiratory: Negative for cough, shortness of breath and wheezing. Cardiovascular: Negative for leg swelling. Neurological: Negative for dizziness, syncope, weakness and light-headedness. 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 pantoprazole DR (PROTONIX) 40 mg tablet Take 1 tablet by mouth once daily. acetic acid (VOSOL) 2 % otic solution Use 4 Drops in both ears three times daily. (Patient not taking: Reported on 04/20/2025) fexofenadine ER (ESTEFANI) 180 mg tablet Take 1 tablet by mouth once daily. (Patient not taking: Reported on 04/20/2025) FAMILY HISTORY Problem Relation Age of Onset Hypertension Maternal Grandmother other (diabetes) Maternal Grandmother other (skin cancer) Maternal Grandfather Diabetes Paternal Grandfather Hypertension Paternal Grandfather Prostate Cancer Paternal Grandfather Social History Tobacco Use Smoking status: Never Smokeless tobacco: Never Vaping Use Vaping status: Never Used Substance Use Topics Alcohol use: Not Currently Drug use: Never BP 130/80 (BP Site: Left Arm, BP Position: Sitting, BP Cuff Size: Regular Adult) Pulse 76 Temp 37.2 ?C (99 ?F) Wt 108 kg (238 lb 1.6 oz) SpO2 99% Physical Exam Vitals reviewed. Constitutional: General: He is not in acute distress. Appearance: Normal appearance. He is not ill-appearing or toxic-appearing. Cardiovascular: Rate and Rhythm: Normal rate. Rhythm irregular. Pulses: Normal pulses. Heart sounds: Normal heart sounds. No murmur heard. Comments: Heart rate accelerating with inhalation and decelerating with exhalation Pulmonary: Effort: Pulmonary effort is normal. Breath sounds: Normal breath sounds. No wheezing, rhonchi or rales. Abdominal: General: Bowel sounds are normal. There is no distension. Palpations: Abdomen is soft. There is no hepatomegaly, splenomegaly or mass. Tenderness: There is abdominal tenderness in the right upper quadrant and epigastric area. There is no guarding or rebound. Negative (more content not included)... [facility] 05-02-2025 History of Present illness Narrative CC: Patient presents with: ER F/U: [facility] GI bleed, acid reflux, epigastric pain HPI Recording using [employer] software for draft documentation of the visit was discussed with the patient/authorized billing representative; all questions welcomed and answered. Patient/authorized billing representative agreed to proceed Mk Chin is a 19-year-old male presenting for follow-up after an ER visit for hematemesis. Mk was seen in the ER on 04/20 for hematemesis following cigar smoking. He experienced nausea and two episodes of emesis streaked with bright red blood. He denies frequent smoking, noting this was only the second cigar he has ever smoked. ER workup included a CT abdomen/pelvis, which was negative for acute intra-abdominal process, and a chest X-ray, which showed mild pulmonary vascular congestion but no focal pulmonary mass or consolidations. Labs were essentially unremarkable. Stool for occult blood was negative. The ER physician suspected a Rosanna-Perry tear and instructed Mk to follow up with his PCP. No medications were prescribed, and he was discharged home. Since the ER visit, Mk reports no further episodes of emesis but has experienced weird abdominal pains and panic attacks. The abdominal pain is diffuse, with primary localization to the epigastric region and secondary localization to the lower abdomen and corresponding areas of the back. He also reports reflux, particularly postprandial, but denies dysphagia. He notes a significant decrease in appetite, feeling full all the time, but denies unintentional weight loss. He has chest pain that correlates with the reflux. He has not taken any medications for reflux and was not prescribed any in the ER. He denies any history of stomach problems, reflux, or significant medical history. He denies any family history of stomach or esophageal problems. Mk denies fever, diarrhea, constipation, cough, or recent illness. He also denies tobacco use, vaping, alcohol consumption, or caffeine intake. He reports occasional use of ibuprofen or Aleve, approximately twice a year. He denies any specific dietary triggers for his reflux and describes his diet as unhealthy prior to the onset of symptoms. He reports feeling like his heart is racing. He denies any history of chest pain, palpitations, or irregular heartbeats. Review of Systems Respiratory: Negative for cough, shortness of breath and wheezing. Cardiovascular: Negative for leg swelling. Neurological: Negative for dizziness, syncope, weakness and light-headedness. 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 pantoprazole DR (PROTONIX) 40 mg tablet Take 1 tablet by mouth once daily. acetic acid (VOSOL) 2 % otic solution Use 4 Drops in both ears three times daily. (Patient not taking: Reported on 04/20/2025) fexofenadine ER (ESTEFANI) 180 mg tablet Take 1 tablet by mouth once daily. (Patient not taking: Reported on 04/20/2025) FAMILY HISTORY Problem Relation Age of Onset Hypertension Maternal Grandmother other (diabetes) Maternal Grandmother other (skin cancer) Maternal Grandfather Diabetes Paternal Grandfather Hypertension Paternal Grandfather Prostate Cancer Paternal Grandfather Social History Tobacco Use Smoking status: Never Smokeless tobacco: Never Vaping Use Vaping status: Never Used Substance Use Topics Alcohol use: Not Currently Drug use: Never BP 130/80 (BP Site: Left Arm, BP Position: Sitting, BP Cuff Size: Regular Adult) Pulse 76 Temp 37.2 C (99 F) Wt 108 kg (238 lb 1.6 oz) SpO2 99% Physical Exam Vitals reviewed. Constitutional: General: He is not in acute distress. Appearance: Normal appearance. He is not ill-appearing or toxic-appearing. Cardiovascular: Rate and Rhythm: Normal rate. Rhythm irregular. Pulses: Normal pulses. Heart sounds: Normal heart sounds. No murmur heard. Comments: Heart rate accelerating with inhalation and decelerating with exhalation Pulmonary: Effort: Pulmonary effort is normal. Breath sounds: Normal breath sounds. No wheezing, rhonchi or rales. Abdominal: General: Bowel sounds are normal. There is no distension. Palpations: Abdomen is soft. There is no hepatomegaly, splenomegaly or mass. Tenderness: There is abdominal tenderness in the right upper quadrant and epigastric area. There is no guarding or rebound. Negative signs include Bustos's sign. Comments: Difficult exam due to body habitus Musculoskeletal: Right lower leg: No edema. Left lower leg: No edema. Skin: General: Skin is warm and dry. Neurological: Mental Status: He is alert. I have reviewed the patient s records from [facility] including diagnostic testing performed, their discharge medications, and my assessment and plan with the patient and any family members present at today s visit. Labs: (04/20) - WBC: 9.7 10 / L - Hemoglobin: 17.3 g/dL - Hematocrit: 49.9% - Platelets: 286 10 / L - BUN: 10 mg/dL - Creatinine: 1.06 mg/dL - Glucose: 84 mg/dL - Lactic acid: 1.3 mmol/L - Sodium: 141 mmol/L - Potassium: 4.0 mmol/L - Lipase: 19 U/L - AST: 29 U/L - ALT: 31 U/L - Alkaline phosphatase: 63 U/L - Stool occult blood test: Negative Imaging: (04/20) - CT Abdomen and Pelvis: Negative for acute intra-abdominal process; no focal pulmonary mass or consolidation in lung bases - Chest X-ray: Mild pulmonary vascular congestion; otherwise normal Assessment/Plan 1. Chest pain, unspecified type (R07.9) Irregular heartbeat (I49.9) Chest pain likely secondary to gastric reflux. Irregular heartbeat noted on examination - Performed EKG in office; results showed marked sinus arrhythmia. Suspect respiratory sinus arrhythmia - Monitor for any changes or worsening symptoms. 2. Hematemesis with nausea (K92.0) Two episodes of hematemesis following cigar smoking; no further episodes reported. ER visit on 04/20 included labs and imaging; CT abdomen/pelvis negative. Labs were unremarkable. Stool for occult blood negative. ER physician suspected Rosanna-Perry tear. - Monitor for any recurrence of hematemesis. - Referral to general surgery for potential upper endoscopy. 3. Upper abdominal pain (R10.10) Gastric reflux (K21.9) Early satiety (R68.81) Abdominal pain, gastric reflux, and early satiety likely secondary to GERD. Differential diagnosis includes H. pylori infection. - Initiated pantoprazole (Protonix) therapy. - Ordered H. pylori stool antigen test. - Referral to general surgery for potential upper endoscopy. 4. Anxiety about health (R45.89) Anxiety likely secondary to recent GI symptoms and ER visit. - Reassured patient regarding EKG findings and current treatment plan. - Monitor anxiety symptoms; consider further evaluation if symptoms persist or worsen. Prescription instructions reviewed with patient as applicable. Potential red flag symptoms discussed with the patient. Reviewed appropriate action plan to take if red flag symptoms occur. Patient agreeable to treatment plan. Jamilah Mcgowan APRN.[employer] documented in this encounter [facility] 04-20-2025 Discharge summary [facility] 04-20-2025 Radiology Diagnostic study note [facility] Imaging Services [address] [place] [id number] Abdomen/Pelvis W IV Cont ONLY MR#: [id number] Acct: [id number] Name: MK CHIN Rep #: [id number] : 2005 M 19 From: Lluvia Gomez MD PCP: Dr. Ivory Zavaleta MD Status: RE G ER Study:Abdomen/Pelvis W IV Cont ONLY Date of E xam: 04/20/25 Exam# [id number] Ordering Dr: Erick Meza DO PROCEDURE: ABDOMEN/PELVIS W IV CONT ONLY 04/20/2025 REASON FOR EXAM: HEMATEMESIS TECHNIQUE: ABDOMEN/PELVIS W IV CONT ONLY Coronal and Sagittal reconstruction series were provided. CONTRAST: 100 mL of Isovue 370 One or more dose reduction techniques were used (e.g., Automated exposure control, adjustment of the mA and/or kV according to patient size, use of iterative reconstruction technique. RADIATION DOSE SUMMARY: DLP: 1326 mGycm COMPARISON: None FINDINGS: Limited sections of the lung bases demonstrate no focal pulmonary mass or consolidations. The liver, spleen, pancreas, and both adrenal glands demonstrate no acute findings. The gallbladder is unremarkable. The stomach is unremarkable. The small bowel loops are not dilated. The appendix is normal. No colonic obstruction. There is no free air or significant free fluid. The kidneys are unremarkable. The urinary bladder is partially distended. The pelvic structures are intact. There is no solid pelvic mass. No significant lymphadenopathy. The aorta and IVC demonstrate no acute findings. Visualized osseous structures demonstrate no acute abnormality. Chronic cortical deformity of the right femoral neck. CT/Abdomen/Pelvis W IV Cont ONLY IMPRESSION: No acute intra-abdominal process. Reading Location: [id number] CC: Dr. Erick Acevedo DO; Dr. Ivory Zavaleta MD ~ Steel [place]pper: Signed [facility] 04-20-2025 Radiology Diagnostic study note [facility] Imaging Services [address] [place] [address] Chest 1 View MR#: [id number] Acct: [id number] Name: MK CHIN Rep #: [id number] : 2005 M 19 From: Lluvia Gomez MD PCP: Dr. Ivory Zavaleta MD Status: RE G ER Study:Chest 1 View Date of Exam: 5 Exam# [id number] Ordering Dr: Erick Meza DO PROCEDURE: CHEST 1 VIEW 04/20/2025 REASON FOR EXAM: HEMATEMSIS TECHNIQUE: Frontal view of the chest. COMPARISON: None FINDINGS: Mild pulmonary vascular congestion. No focal consolidation. No pleural effusion or pneumothorax. Cardiac silhouette is within normal limits. RAD/Chest 1 View IMPRESSION: Mild pulmonary vascular congestion. No focal consolidation. Reading Location: [id number] CC: Dr. Erick Acevedo DO; Dr. Ivory Zavaleta MD ~ Steel [place]pper: Signed [facility] 04-20-2025 Discharge summary Note Date/Time April 20, 2025 10:01pm [facility] Medical Records Department [address] [facility] [place] [address] Emergency Department Summary 04/20/25 MR#: [id number] Acct: [id number] Name: MK CHIN Rep #:[id number] : 2005 19 From: Erick frausto DO PCP: Dr. Ivory Zavaleta MD Status:RE G ER Location: ED HPI History of Present Illness Chief Complaint: GI Bleed Narrative Narrative: Chief complaint and HPI: Hematemesis. 19-year-old male with no significant pastmedical history presents for evaluation of hematemesis. Patient states that he had just finished smoking a cigar when he developed nausea. States he had an episode of emesis that was streaked with bright red blood. States shortly afterwards had another episode that had more bright red blood. Last episode of emesis was 2 PM. States he does not smoke cigars regularly, states this is the second cigar he has ever had in his life. Denies tobacco abuse. Denies any illicit drug abuse or marijuana. Denies any daily NSAID use or alcohol use. States he is having some mild epigastric discomfort. Denies any history of PUD. Denies any fever, chills, shortness of breath, chest pain, constipation, diarrhea, dark or bloody stools, lightheadedness, syncope, presyncope. Review of systems: See HPI Medications: As listed on the chart Allergies: As listed on the chart PFSH: Per chart Vital signs: As listed on the chart. Reviewed. Physical exam: Gen: A&O x3, NAD Head: Normocephalic, atraumatic Eyes: No sclera icterus, conjunctiva clear ENT: Moist mucous membranes Neck: Trachea midline, No JVD CV: RRR, no murmurs, no peripheral edema Resp: Lungs CTA BL, no w/r/c GI: Abd soft, non-distended, mild tenderness to palpation in the epigastrium, nor/r/g Rectal: Normal external examination. No evidence of hemorrhoids or fissures. Normal tone and sensation. No masses, fluctuance, or tenderness. No pain out of proportion. Stool brown on gloved finger : No CVA tenderness Musc: Full ROM, no deformity Skin: Warm, dry Neuro: Alert, oriented, grossly intact, sensation intact Psych: Cooperative, appropriate mood and affect PFSH PFSH Medical History no medical history Home Medications ?Medication ?Instructions ?Recorded ?Last Taken ?Type NK 04/20/25 Unknown History Allergy/AdvReac Type Severity Reaction Status Date / Time No Known Allergies Allergy Verified 04/20/25 15:59 Surgical History no surgical history Social History Smoking Status: Never smoker EXAM Physical Exam Const Vital Signs: 04/20/25 15:56 04/20/25 17:56 04/20/25 19:58 Temperature 97.9 F Temperature Source Temporal Pulse Rate 63 85 67 Respiratory Rate 15 18 14 Blood Pressure 142/78 H 138/75 H 149/74 H Blood Pressure Mean 99 96 99 Pulse Ox 100 99 98 Oxygen Delivery Method Room Air Room Air Room Air 04/20/25 20:53 Temperature Temperature Source Pulse Rate 70 Respiratory Rate 14 Blood Pressure 150/70 H Blood Pressure Mean 96 Pulse Ox 98 Oxygen Delivery Method Room Air MDM MDM MDM Narrative Medical decision making narrative: 19-year-old male with no significant past medical history presents for evaluation of hematemesis. Patient states that he had just finished smoking a cigar when he developed nausea. States he had an episode of emesis that was streaked with bright red blood. States shortly afterwards had another episode that had more bright red blood. Last episode of emesis was 2 PM. On presentation, patient is no acute distress. Vitals are stable other than mild hypertension. Differential diagnosis includes but is not limited to Rosanna-Perry tear, PUD, gastritis, anemia, GI bleed. Suspect less likely Boerhaave's. NS bolus, Zofran, Protonix ordered. Abdominal workup ordered. CBC without leukocytosis. Patient has mild hemoconcentration of 17.3. I do not have previous labs to compare to. Platelets unremarkable. CMP unremarkable without significant electrolyte abnormality or FAVIOLA. BUN is not elevated. No transaminitis. Lipase unremarkable. Lactic acid unremarkable. Chest x-ray waspersonally reviewed and interpreted by ms, ED physician. No pneumonia, large effusion, pneumothorax, subcutaneous air. CT abdomen pelvis shows no acute intra-abdominal process. Stool occult is negative. On reevaluation, patient's nausea has improved. He has had no emesis or hematemesis here in the emergency department. His workup is unremarkable. I suspect his symptoms are likely secondary to Rosanna Perry tear. Patient and father were educated on this. Follow-up with primary care physician. Return precautions explained. Patient has been hypertensive here in the emergency department was told to follow-up with his PCP. He confirmed understanding of plan. Patient stable to discharge home. Impression: 1. Resolved hematemesis, suspect Rosanna-Perry tear 2. Hypertension Lab Data Labs: Laboratory Results - last 24 hr 04/20/25 04/20/25 18:00 19:16 WBC 9.7 RBC 5.90 Hgb 17.3 H Hct 49.9 MCV 84.6 MCH 29.3 MCHC 34.7 RDW Std Deviation 36.8 RDW Coeff of Seema 12.1 Plt Count 286 MPV 9.7 Immature Gran % (Auto) 0.400 Neut % (Auto) 82.0 H Lymph % (Auto) 10.8 L Amelia % (Auto) 6.0 Eos % (Auto) 0.2 Baso % (Auto) 0.6 Absolute Neuts (auto) 7.9 H Absolute Lymphs (auto) 1.05 Nucleated RBC % 0 Sodium 141 Potassium 4.0 Chloride 105 Carbon Dioxide 21.6 Anion Gap 14 BUN 10 Creatinine 1.06 Estim Creat Clear Calc 139.47 Est GFR (MDRD) Non-Af 102 BUN/Creatinine Ratio 9.5 L Glucose 84 Lactic Acid 1.3 Calcium 9.8 Total Bilirubin 0.92 AST 29 ALT 31 Alkaline Phosphatase 63 Total Protein 7.1 Albumin 4.5 Globulin 2.6 Albumin/Globulin Ratio 1.7 Lipase 19 Radiography Diagnostic Testing: Clinical Impression(s) from Imaging Studies Abdomen/Pelvis CT 04/20/25 20:31 IMPRESSION: No acute intra-abdominal process. Reading Location: [facility] Chest X-Ray 04/20/25 20:35 IMPRESSION: Mild pulmonary vascular congestion. No focal consolidation. Reading Location: [facility] Discharge Plan Triage Chief Complaint: GI Bleed ED Provider: Erick Acevedo Dx/Rx/DC Orders Clinical Impression: Rosanna-Perry tear Instructions: Rosanna-Perry Tear Prescriptions: No Action NK Primary Care Provider: Ivory Zavaleta Referrals: Ivory Zavaleta MD [Primary Care Provider] - 3-5 Days Activity Restrictions/Additional Instructions: Follow-up with your primary care physician. Return back to the ED if symptoms change or worsen. Your blood pressure was high here in the emergency department, make sure you follow-up with your primary care physician for this. Print Language: Somali Disposition Disposition: Home, Self Care What to do if you have Problems For any increased pain, shortness of breath, bleeding, nausea or vomiting, chestpain, or any unexpected problems, contact your Primary Care Provider. Call [facility] ([phone]) or report to the closest Emergency Room. Call 911 if necessary. 04/20/252200 <Electronically signed by Erick Acevedo DO> Cosigner Signature (if applicable): CC: Dr. Ivory Zavaleta MD ~ Signed [facility] Work Phone: [phone]) 380-818609-15-2022 Instructions* Patient Instructions* Meeta Kamara PA-C - 07/11/2022 3:45 PM EDT Get plenty of rest. Force fluids daily with water and juices. Nasal saline spray may help to keep nose open and moist. Cool mist humidifier. May use OTC Tylenol or Ibuprofen as direct for discomfort. For sore throat, warm salt water gargles, Chlorseptic spray, lozenges or other OTC sore throat remedies may help. Ear infections can cause fluid to accumulate in the middle ear. This may make your hearing muffled until the fluid reabsorbs. Sometimes this may take a few weeks, If you have hearing problems that persist longer than a few weeks, call the office to be rechecked. If symptoms fail to improve in 5-7 days, fever > 100.5F, general worsening, or other concerning symptoms, call the office: [phone], [phone]. [facility] History of Present illness Narrative* Meeta Kamara PA-C - 07/11/2022 2:00 PM EDT 16 year old male here to establish care. Prior PCP: Ivory Zavaleta Reason for switch: age Current concerns: 05/03/2022 left otorrhea: seen in and started on augmentin 875/125mg daily x 10 days, ofloxin 0.3%5 drops daily 06/23/2022 right ear pain Oflozacin 0.3%. 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 Decided notto play football last year. Identified vaping several times a day, marijuana once every 2 weeks. 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 Friends: not really. Play video games 4 hours Bike rides HISTORIES FAMILY HISTORY Problem Relation Age of Onset Hypertension Maternal Grandmother other (diabetes) Maternal Grandmother other (skin cancer) Maternal Grandfather Diabetes Paternal Grandfather Hypertension Paternal Grandfather Prostate Cancer Paternal Grandfather PAST MEDICAL HISTORY Diagnosis Date Color blindness partial Routine or ritual circumcision PAST SURGICAL HISTORY Procedure Laterality Date CIRCUMCISION W/CLAMP/OTH DEV W/BLOCK PAST SURGICAL HISTORY OF 07/2020 surgery leg wound Social History Tobacco Use Smoking status: Never Smokeless tobacco: Never Above problem list and histories reviewed July 10, 2022 and updated as appropriate. Guanako Kamara PA-C REVIEW OF SYMPTOMS: General: denies fatigue, unusual weight loss or gain, fevers, chills. Eyes: denies change in vision, glaucoma, cataracts. No glasses/contacts. EENT: denies recurrent sinus infection, unusual nasal drainage, hoarsemess, sore throat, or recurrent sore in mouth or tongue. Cardiovascular: denies chest pain , SOB, palpitation, irregular or racing heart beats, orthopnea, leg swelling, history of rheumatic fever or prior heart conditions Respiratory: denies unusual cough, SOB, wheezing, history of recurrent bronchitis, pneumonia or tuberculosis. Denies day time drowsiness. No Snoring. No hx sleep apnea. GI: denies difficulty swallowing, nausea, vomiting, change in appetite. No change in bowel habits. Denies constipation, diarrhea, rectal bleeding or hemorrhoids, incontinence. No history of GERD, PUD, jaundice/hepatitis, GB disease, diverticulosis, colorectal cancer, hernias. Kidney/Bladder: Denies frequency, burning. Nocturianone, incontinence no. No history of kidney stones, recurrent UTI or kidney infection. Skin: denies unusual rashes. No history of skin cancer, bleeding/changing moles, or unusual skin lesions. Neurologic: Denies recurrent FLORES, change in vision, hearing or smell, tremors, unusual weakness, loss of sensation, or difficulty with balance or gait. No history of epilepsy/convulsions, migraine, head/spinal injuries, or stroke/TIA. Psychiatric: See HPI. Denies unusual worry, moodiness, depression, suicidal ideation or unusual disturbance in relationships. No history of psychiatric illness. Endocrine: denies unusual thirst, hunger, excessive urination, change in skin or hair texture, emotional lability. No history of thryoid, pituitary or hormonal problems. Hematologic: denies unusual bleeding, bruising, or history of anemia or blood transfusion. Infections: denies risk factors for HIV, hepatitis or history of unusual infection. Immunizations are up to date. Musculoskeletal: denies unusual stiffness, muscles aches, joint pain, or swelling. Denies recurrentsprain or disruption of joints, debilitating arthritis, gout, or other musculoskeletal disease. no Hx back injury, spinal stenosis, radiculopathy. EXAM: BP 116/72 Pulse 63 Temp 37 C (98.6 F) (Tympanic) Resp 16 Wt 119.3 kg (263 lb) SpO2 98% General appearance: overweight young man with muscular under carriage, in no acute distress. Well nourished. Well groomed. Pleasant spirits. Respirations: regular, unlabored Color: pink to lips and nailbeds Skin: warm, dry, no unusual rashes or lesions Respirations: regular, unlabored Color: pink to lips and nailbeds Skin: warm, dry, no unusual rashes or lesions Head: Normocephalic Eyes: sclerae and conjunctivae without injection or exudate, PERRLA, EOMI, corneal light reflex symmetric bilaterally Ears: bilateral impacting cerumen with whitish appearance ear canal bilaterally. The impacted cerumen was removed by me with magnification provided by an otoscope, lighted wax curettes, forceps, and warm tap water lavage. Afterwards, both TM's and ear canals are clear bilaterally with normal landmarks, no swelling or deformity external ear. No tenderness with tragal pressure. Nose/Sinuses: Nose patent. No turbinate swelling. No active exudate. Maxillary and frontal sinuses nontender to percussion. Oropharynx: Lips, mucosa, and tongue free from lesions. Teeth are in good repair. Gums without inflammation. Oropharynx no exudate or injection. No tonsillar hypertrophy. Neck: Neck supple, no cervical lymphadenopathy; thyroid without mass or tenderness. Chest: normally shaped, equal expansion with breaths. Lungs: Lungs clear to auscultation and percussion. No crackles or wheezes. Heart: RRR without murmur, gallop, or rubs. S1 and S2 normal. Abd soft, nontender, normoactive bowel sounds throughout, no mass, no organomegaly. back FROM, no abnormal curvature. Able to touch toes. Extremities well formed, FROM and strength, no clubbing cyanosis or edema. Neuro grossly intact. Normal gait and balance. ASSESSMENT/PLAN: 1. Acute otitis externa of both ears, unspecified type - ICD9: 380.10, ICD10: H60.503 (primary diagnosis) Patient to use acetic acid drops as directed, follow-up in 1 week for reexamination and continued attempts to remove additional wax is still present. Patient was advised on new medication, potential risks. - ACETIC ACID 2 % EAR SOLUTION 2. Establishing care with new doctor, encounter for - ICD9: V65.8, ICD10: Z76.89 Updated problem list and history. Follow-up as needed. Meeta Kamara PA-C [facility] History of Present illness Narrative* Eduar Cooper APRN.DAILY RELEASE AND DUPE PRINTER - 06/23/2022 1:02 PM EDT Subjective HPI HPI Mk Chin is a 16 year old male who presents today for CC of right ear pain. This started 2 days ago. Has tried otc medication for relief. Symptoms are worsened by nong. Risk factors recently went swimming recently. Some stuffy nose. Recently had left tm perforation. .Patient presents with: Ear Pain: Right ear pain x 2 days PAST MEDICAL HISTORY Diagnosis Date Color blindness partial Routine or ritual circumcision PAST SURGICAL HISTORY Procedure Laterality Date CIRCUMCISION W/CLAMP/OTH DEV W/BLOCK PAST SURGICAL HISTORY OF 07/2020 surgery leg wound ALLERGIES Seasonal Allergies MEDICATIONS EPINEPHrine (EPIPEN) 0.3 mg/0.3 mL auto-injector Inject 0.3 mL intramuscularly as needed (for allergic reaction.Seek emergent medical care immediately after use.Disp:one 2-pack w/head animal trainer). fexofenadine ER (ESTEFANI) 180 mg tablet Take 1 tablet by mouth once daily. ofloxacin (FLOXIN) 0.3 % otic solution Use 10 Drops in both ears once daily for 7 days. FAMILY HISTORY Problem Relation Age of Onset Hypertension Maternal Grandmother other (diabetes) Maternal Grandmother other (skin cancer) Maternal Grandfather Diabetes Paternal Grandfather Hypertension Paternal Grandfather Prostate Cancer Paternal Grandfather Social History Tobacco Use Smoking status: Never Smokeless tobacco: Never ROS Objective Blood pressure 118/78, pulse 88, temperature 36.7 C (98 F), temperature source Tympanic, resp. rate16, weight 119.7 kg (263 lb 12.8 oz), SpO2 98 %. Physical Exam Constitutional: General: He is not in acute distress. Appearance: He is not toxic-appearing or diaphoretic. HENT: Head: Normocephalic and atraumatic. Right Ear: Hearing and external ear normal. Drainage, swelling and tenderness present. Left Ear: Hearing and external ear normal. Drainage and swelling present. No tenderness. Ears: Comments: Unable to see bilat tm d/t cerumen impaction Pulmonary: Effort: Pulmonary effort is normal. No accessory muscle usage or respiratory distress. Neurological: Mental Status: He is alert and oriented to person, place, and time. ASSESSMENT/PLAN: 1. Acute otitis externa of both ears, unspecified type - ICD9: 380.10, ICD10: H60.503 -education material provided -use medication as prescribed -f/u if no better in 3-5 days -discussed proper ear hygiene -discussed prevention - OFLOXACIN 0.3 % EAR DROPS Agrees to plan Eduar Cooper APRN.CNP documented in [facility] Instructions* Patient Instructions* Lona Cooper PA-C - 05/03/2022 9:59 AM EDT EAR INFECTION - OTITIS MEDIA What is otitis media? Otitis media is a bacterial or viral infection of the middle ear (the space behind the eardrum). Middle ear infections often occur as a complication of a cold, allergies, nose and throat infection, or enlarged adenoids (glands at the top of the throat). Middle ear infections usually clear up without complication or long-term effects. The ear structure and function There are three main parts of the ear: outer, middle, and inner. The outer ear is the orifice outside of the body. The middle ear houses delicate bones that aid in hearing, and the inner ear holds organs that control hearing and balance. The Eustachian tube regulates air pressure within the middle ear, connecting it to the back of the nose and throat. What are the symptoms of otitis media? Ear infections can be painful. Trapped fluid puts pressure on the eardrum, causing it to bulge. Other symptoms include: 1)Ear pain: This symptom is obvious in adults, but for children who cannot yet speak, you should watch for other signs, like rubbing or tugging on the ear lobes or excessive crying. 2) Loss of appetite: This may be most apparent in young children, especially during bottle feedings. Pressure changes in the middle ear as the child swallows, causing more pain and less desire to eat. 3) Irritability: Any kind of persistent pain may cause irritability in children and adults. 4) Poor sleep: Pain may be more persistent when lying down as fluid is shifting. 5) Fever: Ear infections can cause temperatures up to 104 F. 6) Drainage from the ear: Yellow, brown, or white fluid that isn t earwax may seep from the ear . This indicates the rupture of the eardrum. 7) Difficulty hearing: Bones of the middle ear connect to the nerves that transmit electrical signals as sound to the brain. Fluid behind the eardrums slows down movement of these electrical signals through the inner ear bones. Who is most likely to get middle ear infections? Middle ear infection is more common in children and is the most prevalent childhood illness other than a cold. Ear infections occur most commonly between age 3 months and 3 years and are common untilage 8. One-fourth of all children will have repeated ear infections, and five to ten percent will develop a hole on the eardrum from fluid pressure. This hole usually heals in one week. For many reasons, children usually get more ear infections than adults. First, they usually get more colds and respiratory infections than adults. Second, the Eustachian tube is shorter and has less of a slope in children than in adults. Other contributing factors for middle ear infections include the followin) Age: Infants and young children are more susceptible to ear infections. 2) Sex: Boys tend to get ear infections more often than girls. 3) Heredity: The tendency to get ear infections can be hereditary (runs in the family). 4) Colds: Having colds often increases the chances of getting an ear infection. 5) Allergies: Allergies cause inflammation of the nasal passages and upper respiratory tract, whichcan cause blockage of the Eustachian tube or enlargement of the adenoids. 6) Chronic illnesses: People with chronic illnesses are more likely to develop ear infections, especially patients with immune deficiency and chronic respiratory disease, such as cystic fibrosis and asthma. What are the causes of middle ear infection? Acute otitis media. Allergies, colds, respiratory infections, and inflamed or enlarged adenoids canblock the bottom of the Eustachian tube, allowing normally produced fluids to build up in the middle ear. Trapped fluid can become infected by a virus or bacteria, causing pain and swelling of the eardrum. Otitis media with effusion. Symptoms of acute otitis media will disappear, but the fluid may remain. Trapped fluid causes temporary and mild hearing loss. This is called otitis media with effusion and may last for up to 3 months. This often indicates a dysfunction of the Eustachian tube. How is otitis media diagnosed? When an ear infection is suspected, the health pet caretaker will examine the ear using an instrument called an otoscope. A healthy eardrum will be pinkish hua in color and translucent. If infection is present, the eardrum may be inflamed, swollen, or red. The doctor may also check the fluid in the middle ear using a pneumatic otoscope, which blows a small amount of air at the eardrum. This should cause the eardrum to move back and forth. The eardrum will not move as readily if fluid is present inside the ear. Another useful diagnostic tool is tympanometry, a test that uses sound and air pressure to check for fluid in the middle ear. It cannot test hearing. If needed, the doctor will order a hearing test (performed by an group account director) for a patient who has persistent ear infections to help determine the presence and extent of hearing loss. How is otitis media treated? Middle ear infection is usually treatable, and permanent damage to the ear or to the hearing is very rare. Treatment methods include the following: Antibiotics Antibiotics, prescribed by your physician, will kill the bacteria that are causing the ear infection. Do not forget to take or give it in regular doses until the bottle is empty, even if the pain andfever are gone. Finishing the medicine will keep the ear infection from flaring up again. If your child goes to school or a metal wire technician and is on a three times a day medication, arrange forsomeone to give the afternoon dose. Store liquid antibiotics in the refrigerator and use a measuring spoon to be sure that you give theright amount. Call the doctor if fever and pain are not gone within 2 days of starting the antibiotics. Antibiotics may cause nausea, diarrhea, rashes, or yeast infections and may also interact with other medications. Rarely, allergic reactions can occur. There is the potential that bacteria will, overtime, develop a resistance to frequently used antibiotics. Be sure to tell your doctor about your medical history and any velc-tlm-jgudxns and prescription medications that you are currently taking. Pain relief Acetaminophen or ibuprofen can help relieve earache or fever over 102 degrees Fahrenheit (39 degrees Celsius) until the antibiotic takes effect. These medications usually control the pain within 1 to2 hours. Earaches tend to hurt more at bedtime. Using a warm compress on the outside of the ear mayalso help relieve pain. This is not recommended for infants. Restrictions The ears do not need to be covered when going outside. Swimming is okay as long as there is no perforation (tear) in the eardrum or drainage from the ear. Air travel or a trip to the mountains is safe, although temporary pain is possible during takeoff and landing. Swallowing fluids, taking a decongestant, chewing on gum during descent, or having a child suck on a pacifier will help relieve discomfort during air travel. Children can return to school or day care as soon as the fever is gone. Earinfections are not contagious. Myringotomy If fluid remains in the ear for more than 3 months, your doctor may want to insert small metal or plastic tubes through the eardrum to equalize pressure between the middle and outer ear. This outpatient procedure is usually performed on children and can be done under general anesthesia. The tubes will remain in from 6 to 12 months and normally fall out on their own. The outer ear will need to be kept dry and free of water until the holes have closed completely. Call your child s physician immediately if: Your child develops a stiff neck. You child acts very lethargic, responds poorly, or is unconsolable. Call your child s physician during office hours if: The fever or pain is not gone after your child has taken the antibiotic for 48 hours. You have any questions or concerns. Preventing middle ear infections in adults and children Avoid contact with second-hand tobacco smoke, also known as passive smoking. Passive smoking increases the frequency and severity of infections. Be sure no one smokes in your home or at a day care. No one should smoke in the house or car, especially when children are present. Avoid bottle propping. If you bottle-feed, hold your baby at a 45-degree angle. Feeding in the horizontal position can cause formula and other fluids to flow back into the Eustachian tubes. Allowing an to hold his or her own bottle also can cause milk to drain into the middle ear. Weaning your baby from a bottle between 9 and 12 months of age will help stop this problem. Watch for mouth breathing or snoring. Constant snoring or breathing through the mouth may be causedby large adenoids. These may contribute to ear infections. An exam by an business english instructor, and evensurgery to remove the adenoids (adenoidectomy), may be necessary. Copyright 6969-2618 The [facility]. All rights reserved This information is provided by the [facility] and is not intended to replace the medical advice of your doctor or health care provider. Please consult your health care provider for advice about a specific medical condition. For additional written health information, please contact the [facility] at the [facility] or toll-free extension [phone] or visit [email or web address] This document was last reviewed on: 04/02 index#[id number] Lona Cooper PA-C Department [facility] [place] documented in this encounterC[facility] History of Present illness Narrative* Lona Cooper PA-C - 05/03/2022 9:46 AM EDT Subjective HPI HPI Mk hCin is a 16 year old male who presents today for CC of L ear pain that started this morning. Described as throbbing/pressure. Slightly muffled sensation. Had discharge (clearish-yellowish)this morning in his ear, when he inserted his finger. No hx of recurrent ear issues/tubes. Did havea TM perf as a child. They have a swimming pool, but does not believe he swam in the past week. Always congested in the spring and fall. 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 Pt has tried IBU, with some relief in symptoms. BP 118/70 Pulse (!) 58 Temp 36.1 C (96.9 F) Resp 21 Wt 119 kg (262 lb 6.4 oz) SpO2 99% ALLERGIES Allergen Reactions Beta Blockers [Beta* Contraindication-Medical Surgical Avoid use of beta blockers as patient is on subcutaneous allergy immunotherapy Zonia Inhibitors Contraindication-Medical Surgical Avoid use of ZONIA inhibitors as patient is on subcutaneous allergy immunotherapy Seasonal Allergies Other: See Comments nasal congestion, headaches, eyes red, itchy Cockroaches, Dust mites,trees, grasses, weeds, ragweed ACTIVE PROBLEM LIST Allergic Rhinitis Due to Dust Mite Chronic Seasonal Allergic Rhinitis Due to Pollen Current Moderate Episode 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 HENT: Positive for ear discharge and ear pain. Negative for congestion, hearing loss, sinus pain, sore throat and tinnitus. Respiratory: Negative for cough, sputum production, shortness of breath and wheezing. Cardiovascular: Negative for chest pain. Neurological: Negative for headaches. Objective BP 118/70 Pulse (!) 58 Temp 36.1 C (96.9 F) Resp 21 Wt 119 kg (262 lb 6.4 oz) SpO2 99% Physical Exam Vitals and nursing note reviewed. Constitutional: General: He is not in acute distress. Appearance: He is well-developed. He is not ill-appearing. HENT: Head: Normocephalic and atraumatic. Right Ear: Tympanic membrane, ear canal and external ear normal. No middle ear effusion. Tympanic membrane is not injected, perforated, erythematous, retracted or bulging. Left Ear: Ear canal and external ear normal. Drainage (Yellow mucoid drainage noted in distal ear canal) and tenderness (Mild-moderate TTP of tragus) present. No middle ear effusion. Tympanic membrane is not injected, perforated, erythematous, retracted or bulging. Ears: Comments: Unable to adequately visualize TM d/t extent of drainage Nose: No mucosal edema or rhinorrhea. Right Sinus: No maxillary sinus tenderness or frontal sinus tenderness. Left Sinus: No maxillary sinus tenderness or frontal sinus tenderness. Mouth/Throat: Pharynx: Uvula midline. No oropharyngeal exudate or posterior oropharyngeal erythema. Tonsils: No tonsillar abscesses. Cardiovascular: Rate and Rhythm: Normal rate and regular rhythm. Heart sounds: Normal heart sounds. Pulmonary: Effort: Pulmonary effort is normal. Breath sounds: Normal breath sounds. No decreased breath sounds, wheezing, rhonchi or rales. Musculoskeletal: Cervical back: Normal range of motion. Lymphadenopathy: Head: Right side of head: No submental, submandibular, tonsillar, preauricular, posterior auricular or occipital adenopathy. Left side of head: No submental, submandibular, tonsillar, preauricular, posterior auricular or occipital adenopathy. Cervical: No cervical adenopathy. Right cervical: No superficial or posterior cervical adenopathy. Left cervical: No superficial or posterior cervical adenopathy. Skin: General: Skin is warm and dry. Neurological: Mental Status: He is alert and oriented to person, place, and time. Psychiatric: Mood and Affect: Affect normal. Behavior: Behavior is cooperative. ASSESSMENT/PLAN: 1. Otorrhea, left - ICD9: 388.60, ICD10: H92.12 Unclear as to whether this is secondary to OE or OM given the amount of drainage, so will go ahead and empirically tx for both otic gtt and oral abx. Discussed medication indications, proper use, andpotential adverse effects. All questions and concerns addressed to patient satisfaction. - OFLOXACIN 0.3 % EAR DROPS - AMOXICILLIN 875 MG-POTASSIUM CLAVULANATE 125 MG TABLET Pt advised to see PCP if symptoms persist or progress. Reviewed red flags with patient and when to seek care sooner. The patient indicates understanding of these issues and agrees with the plan. Lona Cooper PA-C Medical Decision Making: Problems: Low: Acute, uncomplicated illness or injury Data: Assessment requiring an independent historian(s) Risk: Moderate: Drug management High: High risk from testing/treatment Medical Decision Making Level: 3 - Low documented in this encounterC[facility] History of Past illness Narrative* Problem Noted Date Resolved Date Tinea capitis 01/19/2015 01/29/2016 documented as of this encounter (statuses as of 05/03/2022) [place] [id number] History of Past illness Narrative* Problem Noted Date Resolved Date Tinea capitis 01/19/2015 01/29/2016 documented as of this encounter (statuses as of 06/23/2022) [place] [id number] History of Past illness Narrative* Problem Noted Date Resolved Date Tinea capitis 01/19/2015 01/29/2016 documented as of this encounter (statuses as of 07/12/2022) [facility] note* Diagnosis Otorrhea, left- [facility] Diagnosis Acute otitis externa of both ears, unspecified type- Primary [facility] Diagnosis Acute otitis externa of both ears, unspecified type- Primary Establishing care with new doctor, encounter for Other reasons for seeking consultation documented in this encounter [facility] noteNo assessment information availableWOhioHealth [facility] Work Phone: Evaluation note* Diagnosis Hematemesis, unspecified whether nausea present Abdominal pain, unspecified abdominal location Shortness of breath [facility]* Diagnosis Chest pain, unspecified type- Primary Hematemesis with nausea Upper abdominal pain Abdominal pain, other specified site Gastric reflux Esophageal reflux Early satiety Irregular heartbeat Cardiac dysrhythmia, unspecified Anxiety about health [facility] Diagnosis Hematemesis with nausea Upper abdominal pain Abdominal pain, other specified site Gastric reflux Esophageal reflux [facility]* Diagnosis Hematemesis with nausea Upper abdominal pain Abdominal pain, other specified site Gastric reflux Esophageal reflux Heartburn [facility] Diagnosis Gastroesophageal reflux disease without esophagitis- Primary Esophageal reflux [facility] Additional Instructions Follow-up with your primary care physician. Return back to the ED if symptoms change or worsen. Your blood pressure was high here in the emergency department, make sure you follow-up with your primary care physician for this.[facility] Work Phone: Reason for referral (narrative)No reason for referral information availableWOhioHealth [facility] Work Phone: Reason for visit Narrative* Outpatient Procedure (Routine) - Closed Specialty Diagnoses / Procedures Referred By Wilbur yepez Referred To Contact [facility] Diagnoses Hematemesis with nausea Upper abdominal pain Gastric reflux Procedures EGD DIAGNOSTIC ESOPHAGOGASTRODUODENOSC OPY TRANSORAL DIAGNOSTIC Tim Addison MD [address] [place] [address] Phone: tel: fax: [facility] [address] [place] [address] Referral ID Status Reason Start Date Expiration Date V isits Requested Visits Authorized [id number] Closed Auto-Generate d Referral 05/10/2025 05/10/2026 1 1 [facility] Chief Complaint and Reason for Visit Chief Complaint Admit Date GI BLEED April 20, 2025 3:56 pm Advance Directives No Advanced Directives Records Found Advance Directive Response Recorded Date/ Time Do you have a Healthcare Power of [employer]? No April 20, 2025 5:26pm Summary Purpose Family History No Family History Records FoundNo Family History Records Found Additional Source Comments Source Comments (unrecognize d section and content) In the event this informatio n is protected by the Federal Confidentiality of Alcohol and Drug Abuse Patient Records regulations: The Federal rules restrict any use of the information to criminally investigate or prosecute any alcohol or drug abuse patient.[facility] the event this information is protected by the Federal Confidentiality of Alcohol and Drug Abuse Patient Records regulations: The Federal rules restrict any use of the information to criminally investigate or prosecute any alcohol or drug abuse patient.[facility] the event this information is protected by the Federal Confidentiality of Alcohol and Drug Abuse Patient Records regulations: The Federal rules restrict any use of the information to criminally investigate or prosecute any alcohol or drug abuse patient.[facility] the event this information is protected by the Federal Confidentiality of Alcohol and Drug Abuse Patient Records regulations: The Federal rules restrict any use of the information to criminally investigate or prosecute any alcohol or drug abuse patient.[facility] the event this information is protected by the Federal Confidentiality of Alcohol and Drug Abuse Patient Records regulations: The Federal rules restrict any use of the information to criminally investigate or prosecute any alcohol or drug abuse patient.[facility] the event this information is protected by the Federal Confidentiality of Alcohol and Drug Abuse Patient Records regulations: The Federal rules restrict any use of the information to criminally investigate or prosecute any alcohol or drug abuse patient.[facility] the event this information is protected by the Federal Confidentiality of Alcohol and Drug Abuse Patient Records regulations: The Federal rules restrict any use of the information to criminally investigate or prosecute any alcohol or drug abuse patient.[facility] the event this information is protected by the Federal Confidentiality of Alcohol and Drug Abuse Patient Records regulations: The Federal rules restrict any use of the information to criminally investigate or prosecute any alcohol or drug abuse patient.[facility] the event this information is protected by the Federal Confidentiality of Alcohol and Drug Abuse Patient Records regulations: The Federal rules restrict any use of the information to criminally investigate or prosecute any alcohol or drug abuse patient.[facility] the event this information is protected by the Federal Confidentiality of Alcohol and Drug Abuse Patient Records regulations: The Federal rules restrict any use of the information to criminally investigate or prosecute any alcohol or drug abuse patient.[facility] Reason for Visit (unrecogniz ed section and content) Reason Comments Ear Pain left ear pain starte d this morning Reason Comments Ear Pain Right ear pain x 2 d ays Reason Comments Establish Care Reason Comments Vomiting Blood tinged vomitin g x 2 hours Reason Comments ER F/U [facility] GI bleed, acid r eflux, epigastric pain Reason Comments Request Outside Medical Records Reason Comments Consult Hamtemesis, nausea a bd pain Specialty Diagnoses / Procedures Referred By Wilbur yepez Referred To Contact General Surgery Diagnoses Hematemesis with nausea Upper abdominal pain Gastric reflux Procedures CONSULT TO GENERAL SURGERY OFFICE/OUTPATIENT [facility] 60 MINUTES Jamilah Mcgowan M, POCKET SETTER LOCKSTITCH.DAILY RELEASE AND DUPE PRINTER [address] [place] [address] Phone: tel: fax: Referral ID Status Reason Start Date Expiration Date V isits Requested Visits Authorized [id number] Closed PCP Requested Referral 05/02/2025 05/02/2026 1 1 Reason Comments Follow Up Egd follow up Care Teams (unrecognized sec tion and content) Side Seam Tender Relationship Specialty Start Date End Date Ivory Zavaleta MD [address] [place] [address] PCP - General 03/17/09 Side Seam Tender Relationship Specialty Start Date End Date Ivory Zavaleta MD [address] [place] [address] PCP - General 03/17/09 Side Seam Tender Relationship Specialty Start Date End Date Meeta Kamara PA-C [address] [place] [address] PCP - General Family Practice 07/11/22 Team Status: Active Member Role Status Dates Dr. Ivory Zavaleta MD Primary Care Provider Active Team Status: Inactive Member Role Status Dates Dr. Ivory Zavaleta MD Primary Care Provider Active Start: April 20, 2025 End: April 20, 2025 Dr. Erick Acevedo DO Emergency Provider Activ e Start: April 20, 2025 End: April 20, 2025 Side Seam Tender Relationship Specialty Start Date End Date Cee Kamara PA-C PCP - General Family Medicine 07/11/22 Tamara Castellanos, POCKET SETTER LOCKSTITCH.DAILY RELEASE AND DUPE PRINTER [address] [place] [address] [facility] 10/01/24 Teresa Taylor POCKET SETTER LOCKSTITCH.DAILY RELEASE AND DUPE PRINTER [address] [place] [address] [facility] 10/01/24 Side Seam Tender Relationship Specialty Start Date End Date Cee Kamara PA-C PCP - General Family Medicine 07/11/22 Tamara Castellanos, POCKET SETTER LOCKSTITCH.DAILY RELEASE AND DUPE PRINTER [address] [place] [address] [facility] 10/01/24 Teresa Taylor POCKET SETTER LOCKSTITCH.DAILY RELEASE AND DUPE PRINTER [address] [place] [address] [facility] 10/01/24 Side Seam Tender Relationship Specialty Start Date End Date Cee Kamara PA-C PCP - General Family Medicine 07/11/22 Tamara Castellanos, POCKET SETTER LOCKSTITCH.DAILY RELEASE AND DUPE PRINTER [address] [facility] [place] [address] [facility] 10/01/24 Teresa Taylor POCKET SETTER LOCKSTITCH.DAILY RELEASE AND DUPE PRINTER [address] [facility] [place] [address] [employer] [facility] 10/01/24 Side Seam Tender Relationship Specialty Start Date End Date Cee Kamara PA-C PCP - General Family Medicine 07/11/22 Tamara Castellanos POCKET SETTER LOCKSTITCH.DAILY RELEASE AND DUPE PRINTER [address] [facility] [place] [address] [facility] 10/01/24 Teresa Taylor POCKET SETTER LOCKSTITCH.DAILY RELEASE AND DUPE PRINTER [address] 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 Relationship Specialty Start Date End Date Cee Kamara PA-C PCP - General Family Medicine 07/11/22 Tamara Castellanos, BIJAN.DAILY RELEASE AND DUPE PRINTER [address] [facility] [place] [id number] [facility] 10/01/24 Teresa Taylor, 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 SETTER LOCKSTITCH.DAILY RELEASE AND DUPE PRINTER [address] [facility] [place] [id number] [facility] 10/01/24 Goals (unrecognized section and content) Goals may be documented in a n alternate section (unrecognized sect ion and content) No Status Records FoundNo Status Records Found INFORMATION SOURCE (unrecogn ized section and content) DATE CREATED AUTHOR 04/26/2025 [facility] DATE CREATED AUTHOR AUTHOR'S IONA YUAN 06/25/2025 [facility] FOR RECORDS PERTAINING TO PATIENTS WHO ARE OR HAVE BEEN ENROLLED IN A CHEMICAL DEPENDENCY/SUBSTANCEABUSE PROGRAM, SOME INFORMATION MAY BE OMITTED. This clinical summary was aggregated from multiple sources. Caution should be exercised in using it in the provision of clinical care. This summary normalizes information from multiple sources, and as a consequence, information in this document may materially change the coding, format and clinical context of patient data. In addition, data may be omitted in some cases. CLINICAL DECISIONS SHOULD BE BASED ON THE PRIMARY CLINICAL RECORDS. [employer] provides no warranty or guarantee of the accuracy or completeness of information in this document.
[2025-07-16 14:33] LABS: Hematocrit 48.0 % (40-54); Hemoglobin 16.6 g/dL (13.0-16.5); Immature Granulocytes Count 0.030 X10^3/uL (0.0-0.0); Mean Corp Hgb Conc 34.6 g/dL (32-36); Mean Corpuscular Volume 83.5 fL (80-94); Mean Platelet Vol. 9.5 fl (6.2-12.0); NRBC Flagged by Analyzer 0 % (0-5); Platelet Count 283 K/mm3 (150-450); RBC Distribution Width CV 12.5 % (11.6-14.6); RBC Distribution Width SD 37.7 fl (35.1-43.9); Red Blood Count 5.75 M/mm3 (4.6-6.2); White Blood Count 6.4 K/mm3 (4.4-11.0)
[2025-07-16] MEDS: DiphenhydrAMINE 50 MG/ML Syringe 25 MG IV (14:39)
--- NOTE | 2025-07-16 14:53 | EDS_ITS ---
HPI History of Present Illness Chief Complaint: Headache Detail of Chief Complaint: Awoke yesterday with right-sided headache and left extremity weakness Informant: patient Onset/Context/Timing Onset: Yesterday Context: Sudden Timing: Continuous Quality -Headache: Positive for Dull Location: Right side forehead to occiput Current Severity: Mild Maximum Severity: Mild Worsened by: Photophobia Relieved by: Nothing Associated Symptoms/Injury Associated Symptoms: Positive for Numbness (Left side of face and left extremities) and Photophobia; Negative for Fever, Nausea, Vomiting, Sore Throat, Sinus Pressure, Tingling, Preceding Aura, Visual Changes, Blurred Vision or Visual Loss Narrative Narrative: Patient is a 19-year-old male. He has no stomach and past medical history. He is on no medication. He denies smoking, alcohol use or drug use. Patient denies double vision, blurred vision or loss of vision presently. Yesterday he had some blurred vision. He does report light sensitivity. He also reports sound sensitivity. Denies neck pain or neck stiffness. He denies cardiac respiratory symptoms. He denies abdominal pain, nausea, vo miting or diarrhea. He denies dysuria, frequency, urgency or hematuria. Patient denies paresthesia, anesthesia or weakness in his extremities presently. As reported he complained of weakness left upper and left lower extremity yesterday. There is no known family history of subarachnoid hemorrhage or aneurysm. He does not normally have headaches. The headache is not positional. He does report mild nasal congestion. Prior similar symptoms: No Recent Illness/Hospitalization: No PFSH PFSH Medical History no medical history no medical history Home Medications ?Medication ?Instructions ?Recorded ?Last Taken ?Type metoclopramide HCl 10 mg tablet 10 mg PO 4X/DAY PRN He adache #12 07/16/25 Unknown Rx tabs naproxen 500 mg tablet 500 mg PO BID #8 tabs Unknown Rx Allergy/AdvReac Type Severity Reaction Status Date / Time No Known Allergies Allergy Verified 07/16/25 13:23 Surgical History no surgical history no surgical history Social History (Updated 07/16/25 @ 14:[address] Harris Montemayor MD) Smoking Status: Never smoker alcohol intake: current alcohol intake frequency: holidays/special occasions only substance use type: does not use ROS ROS ED Constitutional Constitutional ED: Denies chills, fever(s), subjective, sweats or weight loss Eyes Eyes: Reports blurry vision bilateral (Yesterday) and other Details: Reports photophobia ; Denies change in vision ENT ENT ED: Denies ear pain, rhinorrhea or sore throat Cardiovascular Cardiovascular: Denies chest pain, orthopnea, palpitations or paroxysmal nocturnal dyspnea Respiratory/Chest Respiratory/Chest: Denies cough, dyspnea, dyspnea on exertion, orthopnea or paroxysmal nocturnal dyspnea Gastrointestinal Gastrointestinal: Denies abdominal pain, diarrhea, nausea or vomiting Genitourinary Genitourinary ED: Denies dysuria, hematuria or urinary frequency Musculoskeletal Musculoskeletal: Denies arthralgias, back pain, myalgias or neck pain Integumentary Denies rash Neurologic Neurologic: Reports headache(s), paresthesias and weakness Psychiatric Psychiatric: Denies anxiety or depression Endocrine Endocrinology: Denies polydipsia, polyphagia or polyuria Hematologic/Lymphatic Hematologic/Lymphatic: Denies easy bleeding or easy bruising EXAM Physical Exam Const Vital Signs: 07/16/25 13:04 07/16/25 15:03 07/16/25 15:55 Temperature 97.7 F L 98.0 F Temperature Source Temporal Pulse Rate 71 57 L 62 Respiratory Rate 18 14 18 Blood Pressure 141/81 H 115/67 Blood Pressure Mean 101 83 Pulse Ox 99 97 97 Oxygen Delivery Method Room Air Room Air Positive well nourished and well developed Constitutional Narrative: Blood pressure slightly evaded 141/81. General Appearance ED: well developed and NAD; Negative for pallor HEENT Reports normocephalic, TM's clear and moist mucous membranes HEENT Narrative: Uvula is midline. There is no deviation tongue with protrusion. Posterior pharynx is normal. atraumatic; Negative for temporal artery tenderness or vesicular rash Face and Sinus: sinus tenderness Tympanic Membrane ED: Yes TM's clear Eyes PERRL and EOMs intact bilaterally Neck no lymphadenopathy, supple, no meningeal signs and no JVD Resp normal respiratory effort and clear to auscultation bilaterally Cardio regular rate, regular rhythm, S1 normal heart sound, S2 normal heart sound and no murmurs GI non-tender and non-distended Auscultation: normoactive bowel sounds Palpation: soft Back/Spine no CVA tenderness Extremity normal to inspection, full ROM and normal capillary refill General Extremety ED: Negative for edema or tenderness General Extremity: Negative for edema Neuro oriented x3, CN's II-XII intact bilaterally and No no sensory deficits noted Neuro Narrative: Numbness left side of face and left upper extremity [place] Coma Scale: document GCS findings Spontaneous Obeys Commands Oriented 15 Sensorium / Orientation: awake and alert Coordination / Balance: [id number] test normal, kkjb-ca-[id number] test normal and Romberg test negative; Negative for Romberg test positive Speech: speech normal Gait (Neuro): normal gait Sensory Exam: No sensory level loss detected Motor Exam: strength 5/5 throughout Psych mental status grossly normal Mood & Affect: Negative for depressed Skin General Skin Exam: elasticity normal and turgor normal; Negative for jaundice or pallor NIHSS NIHSS Initial: 1a Level of Consciousness: 0 1b LOC Questions (Score 2 if aphasic/stupor): 0 1c LOC Commands (Only score 1st attempt): 0 2 Best Gaze (If aphasic, use reflexive mvmts.): 0 3 Visual: 0 4 Facial Palsy: 0 5 Motor Arm Right (UN = amputation/fusion): 0 5 Motor Arm Left: 0 6 Motor Leg Right: 0 6 Motor Leg Left: 0 7 Limb ataxia (Only + if out of proportion): 0 8 Sensory (Aphasia/stupor=0 or 1, coma=2): 1 9 Best Language: 0 10 Dysarthria (mute, coma=2, intubated=UN): 0 11 Extinction and Inattention (only scored if +): 0 Total Score: 1 MDM MDM MDM Narrative Medical decision making narrative: With the only neurologic finding been numbness in the left upper extremity this may represent a atypical migraine with neurologic symptoms, intracranial bleed, mass, stroke. Patient was treated initially with Benadryl and Reglan for his headache since in the differential is a intracranial bleed and specifically subarachnoid hemorrhage. If there is no evidence of bleed on the scan doubt that he has an acute bleed since his neuroexam other than the numbness on the left side is unremarkable and would be unusual for subarachnoid hemorrhage with no abnormality noted on CAT scan. Lab Data Attestation: I reviewed the patient's lab results. Lab results narrative: CBC is unremarkable comprehensive metabolic panel is unremarkable. Glucose is slightly elevated 107. ESR is normal. Labs: Laboratory Results - last 24 hr 07/16/25 14:20 WBC 6.4 RBC 5.75 Hgb 16.6 H Hct 48.0 MCV 83.5 MCH 28.9 MCHC 34.6 RDW Std Deviation 37.7 RDW Coeff of Seema 12.5 Plt Count 283 MPV 9.5 Immature Gran % (Auto) 0.500 Neut % (Auto) 70.7 H Lymph % (Auto) 17.4 L [place] % (Auto) 9.2 Eos % (Auto) 1.4 Baso % (Auto) 0.8 Absolute Neuts (auto) 4.5 Absolute Lymphs (auto) 1.11 Nucleated RBC % 0 ESR 1 Sodium 139 Potassium 3.9 Chloride 106 Carbon Dioxide 22.0 Anion Gap 11 BUN 12 Creatinine 1.13 Estim Creat Clear Calc 124.46 Est GFR (MDRD) Non-Af 95 BUN/Creatinine Ratio 10.4 Glucose 107 H Calcium 9.4 Total Bilirubin 1.28 AST 21 ALT 19 Alkaline Phosphatase 59 Total Protein 6.9 Albumin 4.5 Globulin 2.5 Albumin/Globulin Ratio 1.8 Radiography Diagnostic Testing: Clinical Impression(s) from Imaging Studies Brain CT 07/16/25 13:59 IMPRESSION: No CT evidence of acute intracranial hemorrhage, transcortical infarct, or significant mass effect. Reading Location: [facility] Brain MRI 07/16/25 16:01 IMPRESSION: No acute intracranial abnormality. - Findings discussed above in detail. Reading Location: [id number] Brain MRI 07/16/25 16:01 IMPRESSION: No evidence of major dural venous sinus thrombosis. Reading Location: [id number] Head/Neck CTA 07/16/25 16:01 IMPRESSION: No evidence of an acute cervical or intracranial large vessel arterial occlusion, hemodynamically significant stenosis or vessel dissection. - The posteroinferior cerebellar artery origins are not identified bilaterally as discussed above. - Other incidental findings discussed above. Reading [facility] was reviewed by me. I did not see any obvious abnormality. There is no fluid noted in the sinuses. Management Discussion w/another healthcare provider: Hospitalist (Case was discussed with Dr. Robbin Serra. He asked if an MRI was done. I informed that he does not meet criteria for emergent MRI. He was going to call the supervisor air conditioning installer to determine if he can get an MRI done today or have to wait till tomorrow.) Treatment and Re-Evaluation Narrative: Patient was reassessed at 1543. He still complains of numbness left side of his face and left upper extremity. He still has a headache. Mother was in the room who is a nurse. There is no family history of subarachnoid hemorrhage or intracranial bleed or aneurysm. Since he is still having a headache with altered sensation left side hospitalist was paged for admission and MRI. Since CTA of the head neck, MRI of the brain and MRV of the brain reveals no acute abnormality. Will discharge home as paresthesia due to migraine/neurologic migraine Discharge Plan Triage Chief Complaint: Headache ED Provider: Harris Montemayor Dx/Rx/DC Orders Clinical Impression: Right-sided headache, Lt facial numbness, Left upper extremity numbness, Elevated blood-pressure reading without diagnosis of hypertension Instructions: Understanding Headache Pain, ED Hypertension, To Be Confirmed Prescriptions: New naproxen 500 mg tablet 500 mg PO BID Qty: 8 0RF metoclopramide HCl 10 mg tablet 10 mg PO 4X/DAY PRN (Reason: Headache) Qty: 12 0RF Primary Care Provider: Ivory Zavaleta Referrals: Ivory Zavaleta MD [Primary Care Provider, Pediatrics] - As soon as possible Activity Restrictions/Additional Instructions: 1. Take medication as prescribed 2. Follow-up with Dr. Andrea. 3. Your blood pressure was elevated you need to have this rechecked. Print Language: Telugu Disposition Disposition: Home, Self Care
[2025-07-16 15:03] VITALS: PULSE 57; RESP 14; O2SAT 97
[2025-07-16 15:05] LABS: AST(SGOT) 21 U/L (<=37); Alanine Aminotransfer ALT/SGPT 19 U/L (<=46); Albumin, Serum 4.5 g/dL (3.5-5.0); Alkaline Phosphatase 59 U/L (40-129); Anion Gap 11 (5-15); BUN 12 mg/dL (4-19); BUN/Creat Ratio 10.4 RATIO (10-20); Calcium,Total 9.4 mg/dL (7.6-11.0); Carbon Dioxide 22.0 mmol/L (21.0-32.0); Chloride 106 mmol/L (98-108); Estimated Creatinine Clearance 124.46 ml/min (50-250); Globulin 2.5 g/dL (2.2-4.2); Glucose 107 mg/dL (70-99); Potassium 3.9 mmol/L (3.3-5.1)
[2025-07-16 15:55] VITALS: BP 115/67; PULSE 62; RESP 18; TEMP 36.7; O2SAT 97
--- NOTE | 2025-07-16 16:01 | MRI_ITS ---
PROCEDURE: MRV HEAD WITHOUT CONTRAST 07/16/2025 REASON FOR EXAM: RIGHT SIDED HEADACHE WITH NEUROSYMPTOMS ON THE LEF TECHNIQUE: Procedure Code: MRIMRV HEAD Modality: MR Procedure: MRV HEAD WITHOUT CONTRAST Multiplanar and multisequence images were obtained. COMPARISON: MRI brain July 16, 2025. FINDINGS: The superior sagittal sinus is patent. The inferior sagittal sinus is patent. The straight sinus, sinus confluence, transverse sinuses, sigmoid sinuses and proximal skull base internal jugular veins are patent. Basal vein of Mary and internal cerebral veins are patent. No evidence of major dural venous sinus thrombosis. MRI/MRV Head Without Contrast IMPRESSION: No evidence of major dural venous sinus thrombosis. Reading Location: [id number]
--- NOTE | 2025-07-16 16:01 | CT_ITS ---
PROCEDURE: CTA HEAD AND NECK W/ CONTRAST 07/16/2025 REASON FOR EXAM: RIGHT SIDED HEADACHE WITH NEUROSYMPTOMS ON LEFT TECHNIQUE: Procedure Code: [id number].HDNCK Modality: CT Procedure: CTA HEAD AND NECK W/ CONTRAST Multiplanar Sagittal and Coronal images were obtained. CONTRAST: Please refer to CT VOLUME: Please refer to CT mL One or more dose reduction techniques were used (e.g., Automated exposure control, adjustment of the mA and/or kV according to patient size, use of iterative reconstruction technique). RADIATION DOSE SUMMARY: CTDlvol: Please refer to CT mGy DLP: Please refer to CT mGycm COMPARISON: Head CT July 16, 2025. FINDINGS: Aorta: The entire thoracic aorta is not included on this exam. The visualized thoracic aortic arch is not aneurysmal. No thoracic aortic dissection at the visualized arch. No hemodynamically significant stenosis at the visualized arch. Three-vessel branch pattern noted off the aortic arch. Brachiocephalic artery: The brachiocephalic artery is patent and unremarkable to its bifurcation. Subclavian arteries: The subclavian arteries are patent bilaterally to the proximal axillary arteries. Vertebral arteries: The vertebral arteries are nearly equally dominant and both are patent from their origin to the basilar artery without evidence of an abrupt occlusion, hemodynamically significant stenosis or vessel dissection. Common carotid arteries: The common carotid arteries are patent bilaterally to the common carotid bifurcations without evidence of luminal compromise. ECA: The external carotid arteries are patent to their major retromandibular branches. ICA: The internal carotid arteries are patent and unremarkable from their origin to the ICA terminus without evidence of abrupt occlusion, hemodynamically significant stenosis or vessel dissection. Posteroinferior cerebellar arteries: The posteroinferior cerebellar arteries are not identified bilaterally originating from the V4 segments. This may represent technical artifact due to small caliber vessels or anatomic variation in origin. Basilar artery: The basilar artery is patent and unremarkable to its distal bifurcation. RD [employer]GER: P1 and P2 segments of the posterior cerebral arteries are patent bilaterally. Superior cerebellar arteries: Superior cerebellar artery origins are patent bilaterally. Anteroinferior cerebellar arteries: Anteroinferior cerebellar artery origins are visualized bilaterally. PCOM: A patent right PCOM artery is noted. No left-sided PCOM is seen consistent with incomplete left-sided posterior arch. DEEPIKA: A1 and A2 segments of the anterior cerebral arteries are patent bilaterally. A-comm: The anterior communicating artery is patent. Middle cerebral arteries: M1 segments of the middle cerebral arteries are patent bilaterally to the middle cerebral artery bifurcations. M2 segments are patent bilaterally without evidence of abrupt truncation to suggest an acute medium vessel occlusion. Brain: Peripheral enhancement along the brain appears symmetric without an obvious territorial distribution of oligemia to suggest an acute territorial infarct. Acute ischemic change however would be better identified by the more sensitive quantitative CT perfusion analysis or diffusion-weighted MRI as clinically appropriate. Please see head CT report for additional findings. Soft tissues: No prevertebral soft tissue swelling. Thyroid: Slight heterogeneity of the thyroid gland with mild prominence of the posterior right thyroid lobe. Clinical correlation with thyroid function. Pharynx: Mild prominence of the adenoids and tonsils to be correlated and followed up clinically for significance. No tonsillar or peritonsillar abscess. Lymph nodes: Cervical lymph node seen bilaterally but not appearing pathologic by size criteria. Osseous: No acute osseous fracture or malalignment seen. Paranasal sinuses: Mild mucosal thickening noted within ethmoid air cells bilaterally. No paranasal sinus air-fluid levels. CT/CTA Head AND Neck W/ Contrast IMPRESSION: No evidence of an acute cervical or intracranial large vessel arterial occlusio n, hemodynamically significant stenosis or vessel dissection. - The posteroinferior cerebellar artery origins are not identified bilaterally as discussed above. - Other incidental findings discussed above. Reading Location: [id number]
--- NOTE | 2025-07-16 16:01 | MRI_ITS ---
PROCEDURE: BRAIN WITHOUT CONTRAST 07/16/2025 REASON FOR EXAM: RIGHT SIDED HEADACHE AND LEFT-SIDED NEUROSYMPTOMS TECHNIQUE: Procedure Code: MRIBR Modality: MR Procedure: BRAIN WITHOUT CONTRAST Multiplanar and multisequence images were obtained. COMPARISON: Same-day CT brain without contrast. FINDINGS: Brain: Brain parenchymal volume is age-appropriate. No asymmetric encephalomalacia seen. There is no mass effect, midline shift or herniation. No focal extra-axial fluid collection. Appearance of the basal cisterns is unremarkable. There is no posterior fossa Chiari malformation. The corpus callosum is well formed. Appearance and caliber of the brainstem and visualized cervical cord are unremarkable. No upper cervical cord syringohydromyelia. There is no brain parenchymal susceptibility blooming artifact to suggest paramagnetic substances or products of hemosiderin. No FLAIR weighted CSF signal abnormality is seen to suggest complex cerebrospinal fluid. No cerebral hemisphere, cerebellar or brainstem restricted diffusion to suggest acute ischemic change at the current time. No FLAIR weighted signal changes are seen to suggest chronic microvascular ischemic changes, gliosis or white matter disease. Vascular: The distal V4 segment vertebral artery flow voids are maintained. The basilar artery flow void is maintained. The distal intracranial internal carotid artery flow voids are preserved. Ventricles: The ventricles are symmetric without evidence of obstruction. The cerebral aqueduct is visualized and appears patent. The 4th ventricle is midline. Pituitary: The pituitary gland is not enlarged. The pituitary stalk is not deviated. Scalp: No pericranial scalp soft tissue swelling or hematoma. Orbits: The ocular globes are symmetric. Retro-orbital fat is preserved bilaterally. Paranasal sinuses: Mild mucosal thickening within a few ethmoid air cells. No paranasal sinus air-fluid levels. Middle ear cavities: No air-fluid levels within the middle ear cavities. Mastoid air cells: No mastoid air cell air-fluid levels. Calvarium: No focal suspicious calvarial bone lesion seen. MRI/Brain without Contrast IMPRESSION: No acute intracranial abnormality. - Findings discussed above in detail. Reading Location: [id number]
[2025-07-16 18:57] VITALS: BP 115/67; PULSE 62; RESP 18; TEMP 36.7; O2SAT 97
== END 2025-07-16 18:57 | disposition home or self-care (01) ==
PROVIDERS: Emergency Provider Emergency Medicine; PCP Pediatrics; Visit Provider Emergency Medicine
DX: R51.9 Headache, unspecified (principal); R20.0 Anesthesia of skin; H53.8 Other visual disturbances; R03.0 Elevated blood-pressure reading, without diagnosis of hypertension
CPT/HCPCS: 70450; 70496; 70498; 70544; 70551; 80053; 85025; 85652; 96374; 96375; 96376; 99285; Q9967; A4216